=== PATIENT | female | born 1965 | race Caucasian/White ===

== ENCOUNTER → 2022-06-30 12:07 | Outpatient (BNVA) | payer OTHER, SELFPAY | PROVIDERS: PCP Internal Medicine; Visit Provider Psychiatry & Neurology Psychiatry | DX: F32.4 Major depressive disorder, single episode, in partial remission (principal) ==

== ENCOUNTER → 2022-09-28 13:38 | Outpatient (BNVA) | payer OTHER, SELFPAY | PROVIDERS: PCP Internal Medicine; Visit Provider Psychiatry & Neurology Psychiatry | DX: Z13.89 Encounter for screening for other disorder (principal) ==

== ENCOUNTER 2023-03-08 14:34 | Outpatient (AMB) | payer OTHER, SELFPAY ==
--- NOTE | 2023-03-08 13:20 | MHC.OFFVISPS ---
Intake Intake Visit Reasons: Depression Allergies oxycodone [OxyContin] Allergy (Unknown, Verified 05/22/14 00:00) itchiness From OXYCONTIN Allergy (Unknown, Uncoded 02/27/20 16:32) ITCHING HPI- Psychiatric Chief Complaint: Depression HPI Narrative: Pt seen in f/u mood anxious very worried re daughter feeling stressed overwhelmed alone at times daughter may have endometriosis can feel alone at times with her h trying to do counseling knows she needs to take care of herself travels for work at times a [place] has difficulty taking time for herself continues toonly take ssri about 1 wk month for premenstrual sx Past Psychiatric History: The patient has a history of recurrent low level depression premenstrual mood dysphoria and anxiety has been seeing this investigative writer for a number of years Mental Status Exam Mental Status Exam Narrative: Mental Status Exam Narrative: Appearance: Casually dressed Behavior: Cooperative appropriate psychomotor: Within normal limits Speech: Normal volume and prosody Thought proccess logical and goal-directed Thought content: Future oriented gets overwhelmed at times Mood: sadness anxiety Affect: Appropriate to mood full affect SI:denies HI:denies VH/AH:none Delusions: None Insight/judgment: Good insight and judgment Memory/cog: Intact Assessment and Plan Assessment & Plan (1) Major depressive disorder in partial remission: Status: Acute Code(s): F32.4 - Major depressive disorder, single episode, in partial remission (2) Generalized anxiety disorder: Status: Acute Code(s): F41.1 - Generalized anxiety disorder Plan discussed adol tx optioms and help with management of her daughter cont trazadone ssri wellbutrin pt would benefit from IT Counseling and coordination of Care Details-Self Mgmt counseling: extensive issues related to her daughter dealing with chronic trauma related issues and feeling lack of support at times from her h Medication management counseling: Effectiveness Diagnosis and Prognosis Counseling: Adequacy of current interventions Details: I spent [38] minutes reviewing the record, seeing the patient and documenting in the medical record. Counseling provided to the patient/caregiver as outlined below. Addressed patient/caregiver concerns regarding current medication regime including effective adherence. Addressed patient/caregiver concerns regarding diagnosis and prognosis including accuracy of diagnosis, prognosis over time, impact of diagnosis. Addressed patient/caregiver concerns regarding impact of recent stressors. [facility] Medical History (Updated 07/03/22 @ 22:01 by Lebron Vargas MD) Post traumatic stress disorder (PTSD) Major depressive disorder in partial remission Asthma Generalized anxiety disorder Social History: The patient works for [employer] she is and has 1 daughter she is the healthcare proxy mother who has dementia and lives nearby in assisted living daughter has trauma hx Substance History: none Coding Level of Care Code Est Pt Level 3 (01464) Therapy 30m w/E&M (19813) Diagnoses Major depressive disorder in partial remission F32.4 Generalized anxiety disorder F41.1
== END 2023-03-08 14:35 | disposition home or self-care (01) ==
LOC: HO.HOP 14:35
PROVIDERS: PCP Internal Medicine; Visit Provider Psychiatry & Neurology Psychiatry
DX: F32.4 Major depressive disorder, single episode, in partial remission (principal); F41.1 Generalized anxiety disorder
CPT/HCPCS: 90833; 99213

== ENCOUNTER → 2023-03-08 14:34 | Outpatient (BNVA) | payer OTHER, SELFPAY | PROVIDERS: PCP Internal Medicine; Visit Provider Psychiatry & Neurology Psychiatry ==

== ENCOUNTER 2023-09-26 11:11 | Outpatient (AMB) | payer OTHER, SELFPAY ==
--- NOTE | 2023-09-26 11:55 | MHC.OFFVISPS ---
Intake Intake Visit Reasons: depression Allergies oxycodone [OxyContin] Allergy (Unknown, Verified 05/22/14 00:00) itchiness From OXYCONTIN Allergy (Unknown, Uncoded 02/27/20 16:32) ITCHING HPI- Psychiatric Chief Complaint: depression HPI Narrative: Pt seen in f/u mood has been ok severe stress with daughter who is in hospital for endometriosis d having severe pain mother doing ok has ongoing memory difficulty pt herself is managing has periods of anxiety appropriately has been seeing tx Past Psychiatric History: The patient has a history of recurrent low level depression premenstrual mood dysphoria and anxiety has been seeing this selling underwriter for a number of years Mental Status Exam Mental Status Exam Narrative: Mental Status Exam Narrative: Appearance: Casually dressed Behavior: Cooperative appropriate psychomotor: Within normal limits Speech: Normal volume and prosody Thought proccess logical and goal-directed Thought content: Future oriented gets overwhelmed at times worried re her daughter Mood: some sadness anxiety Affect: Appropriate to mood full affect SI:denies HI:denies VH/AH:none Delusions: None Insight/judgment: Good insight and judgment Memory/cog: Intact Assessment and Plan Assessment & Plan (1) Generalized anxiety disorder: Status: Acute Code(s): F41.1 - Generalized anxiety disorder (2) Post traumatic stress disorder (PTSD): Status: Acute Code(s): F43.10 - Post-traumatic stress disorder, unspecified (3) Major depressive disorder in partial remission: Status: Acute Code(s): F32.4 - Major depressive disorder, single episode, in partial remission Plan Severe stress to daughter being hospitalized for endometriosis and pain syndrome with unusual complications and pain management Medications: Refilled escitalopram oxalate 10 mg PO DAILY 30 tabs 2RF bupropion HCl XL 300 mg PO DAILY 90 tabs 1RF zolpidem 5 mg PO BEDTIME PRN 30 tabs 2RF sleep trazodone 200 mg (2 x 100 mg) PO BEDTIME 180 tabs 1RF 3 months Counseling and coordination of Care Details-Self Mgmt counseling: issues rekated to chronic stressors Diagnosis and Prognosis Counseling: Adequacy of current interventions Details: I spent [38] minutes reviewing the record, seeing the patient and documenting in the medical record. Counseling provided to the patient/caregiver as outlined below. Addressed patient/caregiver concerns regarding current medication regime including effective adherence. Addressed patient/caregiver concerns regarding diagnosis and prognosis including accuracy of diagnosis, prognosis over time, impact of diagnosis. Addressed patient/caregiver concerns regarding impact of recent stressors. [facility] Medical History (Updated 07/03/22 @ 22:01 by Lebron Vargas MD) Post traumatic stress disorder (PTSD) Major depressive disorder in partial remission Asthma Generalized anxiety disorder Social History: The patient works for [employer] she is and has 1 daughter she is the healthcare proxy mother who has dementia and lives nearby in assisted living daughter has trauma hx Substance History: none Coding Level of Care Code Est Pt Level 3 (73852) Therapy 30m w/E&M (95989) Diagnoses Generalized anxiety disorder F41.1 Post traumatic stress disorder (PTSD) F43.10 Major depressive disorder in partial remission F32.4
== END 2023-09-26 12:16 | disposition home or self-care (01) ==
LOC: HO.HOP 11:11
PROVIDERS: PCP Student in an Organized Health Care Education/Training Program; Visit Provider Psychiatry & Neurology Psychiatry
DX: F41.1 Generalized anxiety disorder (principal); F43.10 Post-traumatic stress disorder, unspecified; F32.4 Major depressive disorder, single episode, in partial remission
CPT/HCPCS: 90833; 99213

== ENCOUNTER → 2023-09-26 11:11 | Outpatient (BNVA) | payer OTHER, SELFPAY | PROVIDERS: PCP Student in an Organized Health Care Education/Training Program; Visit Provider Psychiatry & Neurology Psychiatry ==

== ENCOUNTER 2024-04-08 10:36 | Outpatient (AMB) | payer OTHER, SELFPAY ==
--- NOTE | 2024-04-08 11:03 | A.OFFPSYCH_ITS ---
Intake Intake Visit Reasons: depression Allergies oxycodone [OxyContin] Allergy (Unknown, Verified 05/22/14 00:00) itchiness From OXYCONTIN Allergy (Unknown, Uncoded 02/27/20 16:32) ITCHING HPI- Psychiatric Chief Complaint: depression HPI Narrative: Pt seen in f/u pt in tx with IT ( telehealth) kaur kilgore medically pt ok has been focused much of her time on her daughter who has been hospitalized . Pt stressed and at times dysphoric but generally maintaining herself and present with her daughter thru multiple medical issues.On wellbutrin escitalopram [facility] at [facility] . Seems to be stable on current regimen Past Psychiatric History: The patient has a history of recurrent low level depression premenstrual mood dysphoria and anxiety has been seeing this senior medical writer for a number of years Mental Status Exam Mental Status Exam Narrative: Mental Status Exam Narrative: Appearance: Casually dressed Behavior: Cooperative appropriate psychomotor: Within normal limits Speech: Normal volume and prosody Thought proccess logical and goal-directed Thought content: Future oriented gets overwhelmed at times worried re her daughter Mood: stressed anxiety Affect: Appropriate to mood constricted SI:denies HI:denies VH/AH:none Delusions: None Insight/judgment: Good insight and judgment Memory/cog: Intact Assessment and Plan Assessment & Plan (1) Generalized anxiety disorder: Status: Acute Code(s): F41.1 - Generalized anxiety disorder (2) Major depressive disorder in partial remission: Status: Acute Code(s): F32.4 - Major depressive disorder, single episode, in partial remission (3) Post traumatic stress disorder (PTSD): Status: Acute Code(s): F43.10 - Post-traumatic stress disorder, unspecified Plan Pt under ongoing stress has been in counseling feels medication has been helpful. Some concern that higher dose Wellbutrin might have been over stimulating causing some increased anxiety dose lowered to 150 mg check labs Medications: Changed From bupropion HCl XL 300 mg PO DAILY 90 tabs 1RF To bupropion HCl XL 150 mg PO QAM 90 tabs 1RF 90 days Orders: Orders Comprehensive Met. Panel 04/08/24 F41.1 - Generalized anxiety disorder, F32.4 - Major depressive disorder, single episode, in partial remission, F43.10 - Post- traumatic stress disorder, unspecified TSH reflex Free T4 04/08/24 F41.1 - Generalized anxiety disorder, F32.4 - Major depressive disorder, single episode, in partial remission, F43.10 - Post- traumatic stress disorder, unspecified Vitamin B12 and Folate 04/08/24 F41.1 - Generalized anxiety disorder, F32.4 - Major depressive disorder, single episode, in partial remission, F43.10 - Post- traumatic stress disorder, unspecified Counseling and coordination of Care Details-Self Mgmt counseling: Extensive discussion regarding issues related to her daughter Medication management counseling: Effectiveness, Side effects and Dosing range Diagnosis and Prognosis Counseling: Impact of diagnosis on life functions and Adequacy of current interventions Details: I spent [38] minutes reviewing the record, seeing the patient and documenting in the medical record. Counseling provided to the patient/caregiver as outlined below. Addressed patient/caregiver concerns regarding current medication regime including effective adherence. Addressed patient/caregiver concerns regarding diagnosis and prognosis including accuracy of diagnosis, prognosis over time, impact of diagnosis. Addressed patient/caregiver concerns regarding impact of recent stressors. [facility] Medical History (Updated 07/03/22 @ 22:01 by Lebron Vargas MD) Post traumatic stress disorder (PTSD) Major depressive disorder in partial remission Asthma Generalized anxiety disorder Social History: The patient works for [employer] she is and has 1 daughter she is the healthcare proxy mother who has dementia and lives nearby in assisted living daughter has trauma hx Substance History: none Coding Level of Care Code Est Pt Level 3 (41381) Therapy 30m w/E&M (23346) Diagnoses Generalized anxiety disorder F41.1 Major depressive disorder in partial remission F32.4 Post traumatic stress disorder (PTSD) F43.10
== END 2024-04-08 11:20 | disposition home or self-care (01) ==
LOC: HO.HOP 10:36
PROVIDERS: PCP Student in an Organized Health Care Education/Training Program; Visit Provider Psychiatry & Neurology Psychiatry
DX: F41.1 Generalized anxiety disorder (principal); F32.4 Major depressive disorder, single episode, in partial remission; F43.10 Post-traumatic stress disorder, unspecified
CPT/HCPCS: 90833; 99213

== ENCOUNTER → 2024-04-08 10:36 | Outpatient (BNVA) | payer OTHER, SELFPAY | PROVIDERS: PCP Student in an Organized Health Care Education/Training Program; Visit Provider Psychiatry & Neurology Psychiatry ==

== ENCOUNTER 2024-07-10 14:56 | Outpatient (AMB) | payer OTHER, SELFPAY ==
--- NOTE | 2024-07-10 15:38 | A.OFFPSYCH_ITS ---
Intake Intake Visit Reasons: depression Allergies oxycodone [OxyContin] Allergy (Unknown, Verified 05/22/14 00:00) itchiness From OXYCONTIN Allergy (Unknown, Uncoded 02/27/20 16:32) ITCHING Medication List - Last Reconciled 07/10/24 by Lebron Vargas MD bupropion HCl XL (Wellbutrin XL) 300 mg PO QAM clonidine HCl 0.1 mg PO BEDTIME PRN escitalopram oxalate 10 mg PO DAILY estradiol 1 patch topical 2XW lansoprazole 30 mg PO BID lorazepam 0.5 - 1 mg (0.5 - 1 x 1 mg) PO DAILY PRN 30 days progesterone micronized 100 mg PO DAILY trazodone 200 mg (2 x 100 mg) PO BEDTIME 3 months zolpidem 5 mg PO BEDTIME PRN HPI- Psychiatric Chief Complaint: depression HPI Narrative: Patient seen in psychiatric follow-up has significant ongoing depressive and anxiety symptoms related to multiple chronic stressors. Her daughter who is 16 who is disabled in a wheelchair living home with multiple medical conditions morbid obesity has recently been diagnosed with thyroid cancer. She also has significant psychiatric issues including PTSD and depression. Patient's mother was recently sent to rehab after RSV. Patient has some difficulty at times with concentration attention intrusive anxiety and dysphoria. She does try to take care of herself no thoughts of self-harm. We had talked about lowering Wellbutrin to 150 mg but she had kept it at 300 mg and has chronically intermittently augmented with escitalopram with generally good effect she uses trazodone for sleep Ambien 5 mg at HS clonidine 0.1 as needed. Has chronic back pain and reflux no other significant medical issues. Labs were ordered last appointment patient does relate a history of episodic memory difficulty at times she does work full-time and is also taking care of her daughter essentially full-time Past Psychiatric History: The patient has a history of recurrent low level depression premenstrual mood dysphoria and anxiety has been seeing this policy writer sales for a number of years Mental Status Exam Mental Status Exam Narrative: Mental Status Exam Narrative: Appearance: Casually dressed Behavior: Cooperative appropriate psychomotor: Within normal limits Speech: Normal volume and prosody Thought proccess logical and goal-directed Thought content: Future oriented gets overwhelmed at times worried re her daughter whether she is being good enough at taking care some concerns regarding episodic insomnia Mood: stressed anxiety Affect: Appropriate to mood constricted SI:denies HI:denies VH/AH:none Delusions: None Insight/judgment: Good insight and judgment Memory/cog: Intact Assessment and Plan Assessment & Plan (1) Generalized anxiety disorder: Status: Acute Code(s): F41.1 - Generalized anxiety disorder (2) Post traumatic stress disorder (PTSD): Status: Acute Code(s): F43.10 - Post-traumatic stress disorder, unspecified (3) Dysthymia: Status: Acute Code(s): F34.1 - Dysthymic disorder Plan Discussed issues related to managing chronic stress and ways to ameliorate. Ongoing use of escitalopram would probably be more helpful than Wellbutrin 300 mg alone. Suggest daily relaxation breathing exercise check Chem profile B12 folate TSH. She is dealing with her daughter's new diagnosis of a thyroid nodule which appears to be cancerous she and her do get along Medications: New bupropion HCl XL (Wellbutrin XL) 300 mg PO QAM 90 tabs 1RF Refilled clonidine HCl 0.1 mg PO BEDTIME PRN 90 tabs 0RF for insomnia trazodone 200 mg (2 x 100 mg) PO BEDTIME 3 months 180 tabs 1RF zolpidem 5 mg PO BEDTIME PRN 30 tabs 2RF sleep Discontinued bupropion HCl XL Discontinued Reason: Doctor's Order 150 mg PO QAM 90 days 90 tabs 1RF Counseling and coordination of Care Medication management counseling: Effectiveness, Side effects and Dosing range Diagnosis and Prognosis Counseling: Impact of diagnosis on life functions and Adequacy of current interventions Details: I spent [40] minutes reviewing the record, seeing the patient and documenting in the medical record. Counseling provided to the patient/caregiver as outlined below. Addressed patient/caregiver concerns regarding current medication regime including effective adherence. Addressed patient/caregiver concerns regarding diagnosis and prognosis including accuracy of diagnosis, prognosis over time, impact of diagnosis. Addressed patient/caregiver concerns regarding impact of recent stressors. [facility] Medical History (Updated 07/10/24 @ 16:51 by Lebron Vargas MD) Post traumatic stress disorder (PTSD) Major depressive disorder in partial remission Asthma Generalized anxiety disorder Social History: The patient works for [email or web address] she is and has 1 daughter she is the healthcare proxy mother who has dementia and lives nearby in assisted living daughter has trauma hx Substance History: none Coding Level of Care Code Est Pt Level 3 (44780) Therapy 30m w/E&M (21140) Diagnoses Generalized anxiety disorder F41.1 Post traumatic stress disorder (PTSD) F43.10 Dysthymia F34.1
--- OUTSIDE RECORDS SUMMARY | 2024-07-10 17:05 | XMS_ITS | Data Portability ---
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 Patient consented to video & audio visit Patient was located in the [facility]. Provider was located in the office. No other persons participated in the telemedicine visit except for the patient unless otherwise indicated here. {{}} Total time of visit was 7 minutes. pmadden Not available 11/15/2022 14:00:37 Plan of Treatment Reminders Order Date Submit Date Provider Last Modified By Organization Details Last Modified Time Details Appointments None recorded. Lab D-dimer, quant, plasma 2022 023 [facility], [address], [address], [facility] [place], [address], 3 15:35:11 uric acid, serum or plasma 2022 023 [facility], [address], [address], [place], [address], 3 17:16:35 unlisted lab - lyme disease antibody w/reflex west blot 2022 023 [facility], [address], [address], [place], [address], 3 11:12:25 CBC w/ auto diff 2022 023 [facility], [address], [address], [place], [address], 3 17:37:51 TSH, serum or plasma 2022 023 [facility], [address], [address], [place], [address], 3 18:24:44 CMP, serum or plasma 2022 023 [facility], [address], [address], [place], [address], 3 18:23:26 hepatitis C virus Ab, serum 2022 023 [facility], [address], [address], [place], [address], 3 08:10:35 HbA1c (hemoglob in A1c), blood 2022 024 [facility], [address], [address], [place], [address], 4 03:03:24 glucose, QN [mass/vol ume], serum or plasma 2022 024 [facility], [address], [address], [place], [address], 4 03:03:24 cholester ol, total, serum 2022 024 [facility], [address], [address], [place], [address], 4 03:03:24 HDL cholester ol, serum 2022 024 [facility], [address], [address], [place], [address], 4 03:03:24 LDL, serum 2022 024 [facility], [address], [address], [place], [address], 4 03:03:24 triglycer ides, serum 2022 024 [facility], [address], [address], [place], [address], 4 03:03:25 magnesium , serum or plasma 2022 024 [facility], [address], [address], [place], [address], 4 03:03:24 Referral None recorded. Procedures None recorded. Surgeries None recorded. Imaging XR, ankle, 3 or more view - for eval of right lateral ankle pain 2022 023 [facility] Not available 3 17:21:52 electroca rdiogram 2022 023 alexander In-Office Order, Internal Use Only DO Not Attach Compendium DO Not Attach Compendium, Do Not Delete/merge, [id number] 3 12:11:58 Medication Orders clobetaso l 0.05 % topical ointment 2022 023 [email or web address] [id number], [address], [place], [address], 3 10:05:55 prednison e 10 mg tablet 2022 023 [id number], [address] [facility] [facility], [place], [address], 3 11:40:18 hydroxyzi ne HCl 10 mg tablet 2022 023 [id number], [address] [place], [address], 3 11:39:45 prednison e 10 mg tablet 2022 023 [id number], [address] [place], [address], 3 11:40:18 ibuprofen 600 mg tablet 2022 023 [id number], [address] [place], [address], 3 12:14:07 carisopro dol 350 mg tablet 2022 023 [id number], [address] [place], [address], 13:36:00 Patient TargetsNo targets recorded. Patient Instructions Encounter Date Encounter Id Patient Instructions Last Modified By Organization Details Last Modified Time 11/08/2022 [id number] poison len, oak, and sumac: care instructions [email or web address] Not available 11/08/2022 10:05:30 11/15/2022 [id number] Follow up if no improvement or if symptoms worsen. pmadden Not available 11/15/2022 14:03:17 03/24/2023 [id number] well visit, women 50 to 65: care instructions Not available 03/24/2023 13:35:57 medical record request* [email or web address] Not available 03/27/2023 11:22:54 starting a weight loss plan: care instructions Not available 03/24/2023 13:41:01 04/22/2023 [id number] prediabetes: care instructions [email or web address] Not available 04/22/2023 10:56:46 triglyceride diet awychowski Not available 04/22/2023 10:56:46 palpitations: care instructions awychowski Not available 04/22/2023 12:11:58 Reason for Referral None Reported. Results Created Date Observation Date Name Description Value Unit Range Abnormal Flag Note LastModifiedBy Organization Detail LastModifiedTime 01/01/20 23 12/31/2022 D-DIM ER D-dimer 0.33 mg/L_ feu (<1.01 ) The manuf actur er recom mends that a d-Dim er value of <0.5 FEU mg/L can be used in conju nctio n with clini isi crite mikaela to help exclu de Deep Vein Throm bosis (DVT) and/o r Pulmo nary Embol ism (PE) in patie nts with a low prete st proba bilit y. Not Available [facility] [address], [place], [address], 12/31/2022 15:35:11 01/01/20 23 12/31/2022 URIC ACID uric acid 5.7 mg/dL (1.6-7 .6) Not Available [facility] [address], [place], [address], 12/31/2022 17:16:35 01/01/20 23 01/03/2023 LYME AB W/REF FARZANEH lyme Ab w/reflex (neg) NEGAT MARITZA NO ANTIB NENITA TO BORRE LLIA BURGD ORFER I DETEC SVETLANA. PATIE NTS IN EARLY STAGE S OF INFEC TION OR WHO WERE GIVEN EARLY ANTIB IOTIC TREAT MENT MAY NOT PRODU CE DETEC TABLE LEVEL S OF ANTIB NENITA. THESE PATIE NTS WOULD BENEF IT FROM REPEA T TESTI NG IN 2 TO 4 WEEKS . Testi ng perfo rmed by the Bio-R ad BioPl ex 2200 multi plex flow immun oassa y syste m Not Available [facility] [address], [place], [address], 01/03/2023 11:12:25 03/29/20 23 03/29/2023 COMPL ETE CBC WITH DIFF WBC 6.0 K/mm3 (4.0-1 1.0) Not Available [facility] [address], [place], [address], 03/29/2023 17:37:51 03/29/2003/29/2023 COMPL ETE CBC WITH DIFF RBC 4.84 M/mm3 (4.20- 5.40) Not Available [facility] [address] [place], [address], 03/29/2023 17:37:51 03/29/20 23 03/29/2023 COMPL ETE CBC WITH DIFF HGB 13.8 gm/dL (11.7- 15.5) Not Available [facility] [address] [place], [address], 03/29/2023 17:37:51 03/29/2003/29/2023 COMPL ETE CBC WITH DIFF HCT 41.3 % (35.7- 45.8) Not Available [facility] [address] [place], [address], 03/29/2023 17:37:51 03/29/2003/29/2023 COMPL ETE CBC WITH DIFF MCV 85.3 fL (80.0- 100.0) Not Available [facility] [address] [place], [address], 03/29/2023 17:37:51 03/29/20 23 03/29/2023 COMPL ETE CBC WITH DIFF MCH 28.5 pg (27.0- 34.0) Not Available [facility] [address] [place], [address], 03/29/2023 17:37:51 03/29/20 23 03/29/2023 COMPL ETE CBC WITH DIFF MCHC 33.4 g/dL (33.0- 37.0) Not Available [facility] [address] [place], [address], 03/29/2023 17:37:51 03/29/20 23 03/29/2023 COMPL ETE CBC WITH DIFF plt 173 K/mm3 (150-4 60) Not Available [facility] [address] [place], [address], 03/29/2023 17:37:51 03/29/20 23 03/29/2023 COMPL ETE CBC WITH DIFF RDW-SD 38.5 fL (<47.0 ) Not Available [facility] [address] [place], [address], 03/29/2023 17:37:51 03/29/20 23 03/29/2023 COMPL ETE CBC WITH DIFF MPV 10.3 fL (9.4-1 2.4) Not Available [facility] [address] [place], [address], 03/29/2023 17:37:51 03/29/2003/29/2023 COMPL ETE CBC WITH DIFF automated NRBC 0.0 #/100 _WBC' s Not Available [facility] [address] [place], [address], 03/29/2023 17:37:51 03/29/2003/29/2023 COMPL ETE CBC WITH DIFF abs. NRBC 0.0 K/mm3 Not Available [facility] [address] [place], [address], 03/29/2023 17:37:51 03/29/2003/29/2023 COMPL ETE CBC WITH DIFF neut # 3.9 K/mm3 (1.3-7 .0) Not Available [facility] [address] [place], [address], 03/29/2023 17:37:51 03/29/20 23 03/29/2023 COMPL ETE CBC WITH DIFF lymph # 1.3 K/mm3 (0.8-3 .1) Not Available [facility] [address] [place], [address], 03/29/2023 17:37:51 03/29/20 23 03/29/2023 COMPL ETE CBC WITH DIFF mono# 0.5 K/mm3 (0.4-0 .9) Not Available [facility] [address] [place], [address], 03/29/2023 17:37:51 03/29/20 23 03/29/2023 COMPL ETE CBC WITH DIFF eo # 0.2 K/mm3 (0.0-0 .4) Not Available [facility] [address] [place], [address], 03/29/2023 17:37:51 03/29/20 23 03/29/2023 COMPL ETE CBC WITH DIFF baso # 0.0 K/mm3 (0.0-0 .1) Not Available [facility] [address] [place], [address], 03/29/2023 17:37:51 03/29/20 23 03/29/2023 COMPL ETE CBC WITH DIFF abs. imm gran 0.0 K/mm3 Not Available [facility] [address] [place], [address], 03/29/2023 17:37:51 03/29/20 23 03/29/2023 COMPL ETE CBC WITH DIFF neut 65.9 % (44-76 ) Not Available [facility] [address] [place], [address], 03/29/2023 17:37:51 03/29/20 23 03/29/2023 COMPL ETE CBC WITH DIFF lymph 21.0 % (15-43 ) Not Available [facility] [address] [place], [address], 03/29/2023 17:37:51 03/29/20 23 03/29/2023 COMPL ETE CBC WITH DIFF monocyte 8.4 % (4.5-1 0.5) Not Available [facility] [address] [place], [address], 03/29/2023 17:37:51 03/29/20 23 03/29/2023 COMPL ETE CBC WITH DIFF eo 3.9 % (0-6) Not Available [facility] [address] [place], [address], 03/29/2023 17:37:51 03/29/20 23 03/29/2023 COMPL ETE CBC WITH DIFF baso 0.5 % (0-2) Not Available [facility] [address] [place], [address], 03/29/2023 17:37:51 03/29/20 23 03/29/2023 COMPL ETE CBC WITH DIFF imm gran 0.3 % Not Available [facility] [address] [place], [address], 03/29/2023 17:37:51 03/29/20 23 03/29/2023 COMPR EHENS MARITZA METAB OLIC PANL glucose 118 mg/dL (70-99 ) high Fasti ng Not Available [facility] [address] [place], [address], 03/29/2023 18:23:25 03/29/20 23 03/29/2023 COMPR EHENS MARITZA METAB OLIC PANL BUN 11 mg/dL (6-20) Not Available [facility] [address] [place], [address], 03/29/2023 18:23:25 03/29/20 23 03/29/2023 COMPR EHENS MARITZA METAB OLIC PANL creatinine 1.0 mg/dL (0.5-1 .0) Not Available [facility] [address] [place], [address], 03/29/2023 18:23:25 03/29/20 23 03/29/2023 COMPR EHENS MARITZA METAB OLIC PANL sodium 137 mmol/ L (133-1 45) Not Available [facility] [address] [place], [address], 03/29/2023 18:23:25 03/29/20 23 03/29/2023 COMPR EHENS MARITZA METAB OLIC PANL potassium 4.7 mmol/ L (3.6-5 .2) Not Available [facility] [address] [place], [address], 03/29/2023 18:23:25 03/29/20 23 03/29/2023 COMPR EHENS MARITZA METAB OLIC PANL chloride 102 mmol/ L (98-10 7) Not Available [facility] [address] [place] [address], [address], 03/29/2023 18:23:25 03/29/20 23 03/29/2023 COMPR EHENS MARITZA METAB OLIC PANL bicarbonate 26 mmol/ L (22-29 ) Not Available [facility] [address] [place] [place], [address], 03/29/2023 18:23:25 03/29/2003/29/2023 COMPR EHENS MARITZA METAB OLIC PANL anion gap 9 (4-17) Not Available [facility] [address] [place], [address], 03/29/2023 18:23:25 03/29/2003/29/2023 COMPR EHENS MARITZA METAB OLIC PANL albumin 4.5 gm/dL (3.4-4 .8) Not Available [facility] [address] [place], [address], 03/29/2023 18:23:25 03/29/20 23 03/29/2023 COMPR EHENS MARITZA METAB OLIC PANL calcium 9.2 mg/dL (8.6-1 0.5) Not Available [facility] [address] [place], [address], 03/29/2023 18:23:25 03/29/2003/29/2023 COMPR EHENS MARITZA METAB OLIC PANL bilirubin,to gideon 0.4 mg/dL (0-1.2 ) Not Available [facility] [address] [place], [address], 03/29/2023 18:23:25 03/29/20 23 03/29/2023 COMPR EHENS MARITZA METAB OLIC PANL total protein 6.5 gm/dL (6.2-8 .2) Not Available [facility] [address] [place], [address], 03/29/2023 18:23:25 03/29/20 23 03/29/2023 COMPR EHENS MARITZA METAB OLIC PANL Ag ratio 2.3 Not Available [facility] [address] [place], [address], 03/29/2023 18:23:25 03/29/20 23 03/29/2023 COMPR EHENS MARITZA METAB OLIC PANL AST 18 U/L (0-32) Not Available [facility] [address] [place], [address], 03/29/2023 18:23:25 03/29/20 23 03/29/2023 COMPR EHENS MARITZA METAB OLIC PANL alk phos 57 U/L (35-10 4) Not Available [facility] [address] [place], [address], 03/29/2023 18:23:25 03/29/20 23 03/29/2023 COMPR EHENS MARITZA METAB OLIC PANL ALT 24 U/L (0-33) Not Available [facility] [address] [place], [address], 03/29/2023 18:23:25 03/29/20 23 03/29/2023 COMPR EHENS MARITZA METAB OLIC PANL estimated GFR creatinine 67 mL/mi n/1.7 3_M2 Creat inine based estim ated glome rular filtr ation (eGFR ) in adult s is calcu lated using the Natio nal Kidne y Found ation recom candi d 2020 CKD-E PI equat ion. Estim ates GFR from serum creat inine , age and sex. Not Available [facility] [address] [place], [address], 03/29/2023 18:23:25 03/29/20 23 03/29/2023 TSH WITH REFLE X TO FT4 TSH 0.89 uIU/m L (0.4-4 .2) Not Available [facility] [address] [place], [address], 03/29/2023 18:24:44 03/29/2003/30/2023 LIPID PANEL cholesterol, total 167 mg/dL (<200) Not Available [facility] [address] [place], [address], 03/30/2023 08:58:04 03/29/2003/30/2023 LIPID PANEL triglyceride 278 mg/dL (<150) high Fasti ng Not Available [facility] [address] [place], [address], 03/30/2023 08:58:04 03/29/2003/30/2023 LIPID PANEL HDL chol 28 mg/dL (>39) low Not Available [facility] [address] [place], [address], 03/30/2023 08:58:04 03/29/2003/30/2023 LIPID PANEL LDL cholesterol, calculated 83 mg/dL (0-130 ) Not Available [facility] [address] [place], [address], 03/30/2023 08:58:04 03/29/2003/30/2023 LIPID PANEL non HDL cholesterol (calc) 139 mg/dL (<160) Not Available [facility] [address] [place], [address], 03/30/2023 08:58:04 03/29/2003/30/2023 HEMOG LOBIN A1C hemoglobin A1C 5.6 % (4.0-5 .6) MONIT ORING : In known diabe tic patie nts, hemog lobin A1c targe arpan hamm d be discu ssed with healt h care provi kirit. DIAGN OSTIC USE: The Ameri can Diabe damaso Assoc iatio n (ADA) and the World Healt h Organ izati on (WHO) recom mend the use of HbA1c to diagn ose diabe damaso using a thres hold of 6.5%. Patie nts who have an HbA1c betwe en 5.7% and 6.4% are consi dered at incre ased risk for devel oping diabe damaso in the futur e. RIKITI ON: False ly low HbA1c resul ts may be obser yonatan in patie nts with hemol ytic anemi a, homoz ygous forms of abnor mal hemog lobin (e.g. SS, CC, SC), pregn reena, recen t blood loss or hemog lobin F great er than 7%. Fruct osami ne may be used as an alter maxwell test in these cases . REFER ENCE: ADA: Stand ards of Medic al Care in Diabe damaso 2019, The Journ al of Clini isi and Appli ed Resea rch and Educa tion Volum e 43, Suppl ement 1 Not Available [facility] [address], [place], [address], 03/30/2023 10:50:51 03/29/20 23 03/31/2023 ANTI- HEPAT ITIS C anti-hepatit is C (neg) Non React maritza Refer ence range : Non React maritza (NOTE ) HCV antib nenita alone does not diffe renti ate betwe en previ ously resol yonatan infec tion and activ e infec tion. Equiv ocal and React maritza HCV antib nenita resul ts shoul d be follo wed up with an HCV RNA test to suppo rt the diagn osis of activ e HCV infec tion. Test perfo rmed by [facility], [address] [place] [address] Not Available [facility] [address], [place], [address], 03/31/2023 08:10:35 01/05/20 23 01/04/2023 XR, ankle , 3 or more view Ankle Min 3 Views Right Reason : swelli ng, effusi on, for eval of right latera l ankle pain COMPAR GUTIERREZ: Right ankle radiog raphs from 017 FINDIN GS: No eviden ce of acute or healin g fractu re or bone lesion . Intact ankle mortis e and talar dome. No arthri tic change s. Normal soft tissue s. IMPRES TERESO: No fractu re. WSN: [id number] Orderi ng Physic oma: Torsten Harris Dictat ed By: River Washington MD Dictat ed Date/T luis angel: 5:18 pm Review ed By: Abigail arriaga MD, River Restrepo Signed By: River Washington MD Signed Date/T luis angel: 5:18 pm Transc ribed By: KAYLA Transc ribed Date/T luis angel: 5:16 pm Patien t Class: Outpat ient [facility] (Outpt Imaging) [address] [facility], [place], [address], 01/05/2023 16:44:36 04/22/20 23 04/22/2023 elect rocar diogr am No observ ation record ed. awfab In-Office Order Internal Use Only DO Not Attach Compendium DO Not Attach Compendium, Do Not Delete/merge, [id number] 04/22/2023 12:17:12 04/22/20 elect rocar diogr am No observ ation record ed. LAMAR In-Office Order Internal Use Only DO Not Attach Compendium DO Not Attach Compendium, Do Not Delete/merge, [id number] 04/27/2023 11:56:49 Result Notes None recorded. Problems Name Problem SNOMED Code Status Onset Date Resolution Date Notes Provider Name and Address Organization Details Recorded Time Abdomina l pain [id number] Completed 201112/31/2013 IMPRESSI ON: PAIN, BLOATING AND GAS X PASTA 1.5 WEEKS. LOCALIZE D LUQ BUT ALSO EPIGASTR IC D/C AND RLQ D/C ON EXAM. HX OF HIATAL HERNIA, GERD BUT NO OTHER CHRONIC GI SXS. NEEDS LAB, US. WILL CONTACT WITH RESULTS WHEN AVAIL, MAY ULTIMATE LY NEED GI REFERRAL FOR POSSIBLE SCOPE. IN MEANTIME FLUIDS, BLAND FOODS, CONTINUE WITH PREVACID .; RECORDED 01/18/20 12 10:54AM BY MONICA IVEY ON/ADDEN LEMUEL Castro, [facility] [address] [facility] [address], [place], [address] , [facility] 10:49:28 Generali zed abdomina l pain [id number] Completed 201112/31/2013 RECORDED 01/23/20 12 11:01AM BY SARA ROWLAND MA, ANNOTATI ON/ADDEN DUM Alfred Castro, [facility] [address], [place], [address] , [facility] 10:49:28 Acute maxillar y sinusiti s [id number] Completed 200612/31/2013 RESOLVED DATE: 01/14/20 07; RECORDED 01/14/20 07 10:19AM BY PEPE BROWN MD, ANNOTATI ON/ADDEN DUM Alfred Castro, [facility] [address] [facility] [address], [place], [address] , [facility] 10:49:27 Acute pharyngi tis [id number] Completed 200812/31/2013 IMPRESSI ON: ULCERATI ONS ON OROPHARY NX, LOOK VIRAL RELATED, SALT WATER GARGLES; RECORDED 08/19/19 09 2:22PM BY YOLETTE LORD, ANNOTATI ON/ADDEN DUM Alfred Castro, [facility] [address] [facility] [address], [place], [address] , [facility] 10:49:27 Acute sinusiti s [id number] Completed 201112/31/2013 RECORDED 01/18/20 12 10:53AM BY ANAY ELKINS, MONICA ON/ADD LEMUEL foy [facility] 7 15:50:52 Acute sinusiti s [id number] Completed 201212/09/2016 IMPRESSI ON: PT CALLED SXS WORSE FROM LAST WEEK; RECORDED 04/25/20 13 3:05PM BY ANAY ELKINS, OFFICE VISIT Eri foy [facility] 7 15:50:52 Allergic rhinitis [id number] Completed 201112/31/2013 IMPRESSI ON: WILL ADD DUE TO POORLY CONTROLL ED ALLERGIE S; RECORDED 01/18/20 12 10:54AM BY ANAY ELKINS, MONICA ON/ADDEN DUM Alfred Castro, [facility] [address] [facility] [address], [place], [address] , [facility] 10:49:27 Patient status finding [id number] Completed 201212/31/2013 RECORDED 10/03/19 13 11:17AM BY TITO RÍOS MA, VENTURAATI ON/ADDEN DUM Eri foy, [facility] 7 15:50:49 Screenin g for malignan t neoplasm of breast Completed 201112/31/2013 RECORDED 01/23/20 12 11:01AM BY SARA ROWLAND MA, MONICA ON/ADDEN DUM Alfred Castro, [facility] [address] [facility] [address], [place], [address] , [facility] 10:49:28 Screenin g for malignan t neoplasm of cervix Completed 201212/09/2016 RECORDED 04/25/20 13 3:04PM BY ANAY ELKINS, OFFICE VISIT Eri foy, [facility] 7 15:50:54 Conjunct ivitis [id number] Completed 201112/31/2013 RECORDED 01/18/20 12 10:53AM BY MONICA IVEY ON/ADDEN DUM Eri foy, [facility] 7 15:51:45 Cough [id number] Completed 201212/09/2016 IMPRESSI ON: HAS REACTIVE AIRWAYS THAT HAVE RESPONDE D IN PAST TO ADVAIR. WILL UP TO 500. SHE THINKS POSTNASA L DRIP PLAYS A BIG PART TOO. ADD SUDAFED. CONTINUE FLONASE AND NETI-POT ; RECORDED 04/25/20 13 3:05PM BY ANAY ELKINS, OFFICE VISIT Eri foy [facility] 7 15:51:16 Degenera tion of lumbar interver tebral disc [id number] Active 2012 RECORDED 04/25/20 13 3:04PM BY ANAY ELKINS, OFFICE VISIT Not Available [facility] 2 13:23:03 Depressi ve disorder [id number] Completed 201210/23/2018 RECORDED 04/25/20 13 3:05PM BY ANAY ELKINS, OFFICE VISIT Eri foy [facility] 9 14:08:53 Gastroes ophageal reflux disease [id number] Active 2012 IMPRESSI ON: STABLE ON MEDS, KEEP MEALS LIGHT; RECORDED 04/25/20 13 3:04PM BY ANAY ELKINS, OFFICE VISIT Not Available [facility] 2 13:23:03 Malaise and fatigue [id number] Completed 201212/09/2016 IMPRESSI ON: CHECK LABS HX OF GESTATIO NAL DM; RECORDED 04/25/20 13 3:37PM BY ERI Santillan MD, OFFICE VISIT Eri foy [facility] 7 15:51:01 Female infertil ity [id number] Completed 201112/31/2013 RECORDED 01/18/20 12 10:53AM BY ANAY ELKINS, ANNOTATI ON/ADDEN DUM Alfred Castro [facility] [address] [facility] [address], [place], [address] , [facility] 10:49:27 Influenz a vaccine needed [id number] Completed 201212/31/2013 RECORDED 04/25/20 13 3:14PM BY ANAY ELKINS, OFFICE VISIT Alfred Castro [facility] [address] [facility] [address], [place], [address] , [facility] 10:49:28 Adult health examinat ion Completed 201212/09/2016 IMPRESSI ON: PT IS OVERDUE FOR PAPA ND MAMMOGRA M, I URGED HER TO GET HER MAMMOGRA M EVERY YEAR, SHE WILL ARRANGE, WILL GET COLONOSC OY AT AGE 52, IS ADOPTED, NO SYMPOTMS .; RECORDED 04/25/20 13 3:36PM BY ERI Santillan MD, OFFICE VISIT Eri foy, [facility] 7 15:50:58 Adult health examinat ion Completed 201112/31/2013 IMPRESSI ON: PAP AND MAMMO UTD, WILL INCREASE EXERCISE ; RECORDED 01/23/20 12 11:01AM BY SARA ROWLAND MA, ANNOTATI ON/ADDEN DUM Eri foy, [facility] 7 15:50:58 General examinat ion of patient Completed 200812/31/2013 IMPRESSI ON: PAP UTD, HAS NOT HAD MAMMO, 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 CHECK LAST TETANUS AT FOLLOW UP; RECORDED 08/19/19 09 2:22PM BY MONICA BURNS ON/HARDIK Castro, [facility] [address] [address], [place], [id number] , [facility] [place] 6 10:49:28 Blood in urine [id number] Completed 200812/31/2013 RECORDED 08/19/19 09 2:22PM BY MONICA BURNS ON/HARDIK Castro, [facility] [address] [address], [place], [address] , [facility] [place] 10:49:27 Pure hypercho lesterol emia [id number] Completed 201210/23/2018 IMPRESSI ON: CEHCK NONFASTI NG TO GET BASELINE ; RECORDED 04/25/20 13 3:05PM BY ANAY ELKINS, OFFICE VISIT Eri marshenznusrat foy [facility] 9 14:09:00 Internal hemorrho ids [id number] Completed 201212/09/2016 RECORDED 04/25/20 13 3:05PM BY ANAY ELKINS, OFFICE VISIT Eri marshenznusrat foy [facility] 7 15:51:42 Laborato ry procedur e performe d [id number] Completed 201212/31/2013 RECORDED 08/23/19 13 9:42AM BY DEMARCO GARCIA MA, VENTURAATI ON/HARDIK Castro, [facility] [address] [facility] [address], [place], [address] , [facility] 6 10:49:28 Leukopen ia [id number] Completed 201210/23/2018 RECORDED 04/25/20 13 3:05PM BY ANAY ELKINS, OFFICE VISIT Eri marshenznusrat foy [facility] 9 14:08:57 Low back pain [id number] Completed 201212/09/2016 IMPRESSI ON: TREATED BY PAIN MANAGEME NT, ON PRN PAIN MEDS, ENCOURAG ED CORE AND EXERCISE WORK; RECORDED 04/25/20 13 3:37PM BY ERI Santillan MD, OFFICE VISIT Eri foy [facility] 7 15:51:05 Lumbar sprain [id number] Completed 201112/31/2013 RECORDED 01/18/20 12 10:53AM BY ANAY ELKINS, MONICA ON/HARDIK Castro, PASUP [address] [facility] [address], [place], [address] , [facility] 10:49:28 Malaise and fatigue [id number] Completed 201112/31/2013 IMPRESSI ON: MOOD STABLE ON MEDS; RECORDED 01/23/20 12 11:01AM BY SARA ROWLAND MA, ANNOTATI ON/ADDEN DUM Eri foy [facility] 7 15:51:01 Patient status finding [id number] Completed 201212/09/2016 RECORDED 04/25/20 13 3:14PM BY ANAY ELKINS, OFFICE VISIT Eri foy [facility] 7 15:50:49 Infectiv e otitis externa [id number] Completed 200812/31/2013 RECORDED 08/19/19 09 2:24PM BY TITO RÍOS MA, ANNOTATI ON/ADDEN DUM Alfred Castro, [facility] [address] [address], [facility] [place], [address] , [facility] [facility] 10:49:27 Contact dermatit is due to plants, except food Completed 201212/09/2016 RECORDED 04/25/20 13 3:05PM BY ANAY ELKINS, OFFICE VISIT Eri foy [facility] 7 15:51:28 Eruption [id number] Completed 200812/31/2013 IMPRESSI ON: PERIANAL , TRUIAL OF STEROID, THEN ANTIFUNG AL AND THEN TREAT HEMORRHO IDS,; RECORDED 11/14/19 09 1:44PM BY TITO RÍOS MA, ANNOTATI ON/ADDEN DUM Eri foy, [facility] 7 15:51:03 Knee pain Completed 201212/31/2013 IMPRESSI ON: S/P INJURY 9 DAYS AGO, NO INSTABIL ITY ON EXAM, HAS UPCOMING NEOS APPT 09/04([place]las [place]).; RECORDED 10/03/19 13 11:17AM BY TITO RÍOS MA, ANNOTATI ON/ADDEN D[facility] 15:[facility] Chronic sinusiti s [id number] Completed 201112/31/2013 RECORDED 01/23/20 12 11:01AM BY SARA ROWLAND MA, ANNOTATI ON/ADDEN DUM Alfred Castro, [facility] [address] [address], [place], [address] , [facility] [place] [facility] 10:49:27 Disorder of skin and/or subcutan eous tissue [id number] Completed 201112/31/2013 IMPRESSI ON: 2 SMALL SKIN TAGS OVER EYES, SKIN GETS DRY AND THEY CAN GET IRRITATE D.REFER TO PLASTIC SURGERY FOR EVAL ABOUT REMOVAL; RECORDED 01/23/20 12 11:01AM BY SARA ROWLAND MA, ANNOTATI ON/ADD LEMUEL Castro, [facility] [address] [address], [place], [address] , [facility] [facility] 10:49:28 Thromboc ytopenic disorder [id number] Completed 201112/31/2013 RECORDED 01/23/20 12 11:01AM BY SARA ROWLAND MA, ANNOTATI ON/ADD LEMUEL Castro, [facility] [address] [address], [place], [address] , [facility] [place] 10:49:27 Acute upper respirat ory infectio n [id number] Completed 201212/09/2016 IMPRESSI ON: VIRAL; RECORDED 04/25/20 13 3:04PM BY ANAY ELKINS, [facility] 15:[facility]23 Vaginiti s and vulvovag initis Completed 201112/31/2013 IMPRESSI ON: GETS YEAST INFECTIO N ON ANTIBIOT ICS; RECORDED 01/18/20 12 10:54AM BY MONICA IVEY ON/ADDEN DUM Alfred Castro, [facility] [address], [place], [address] , [facility] [place] [facility] 10:49:27 Candidal vulvovag initis [id number] Completed 201212/09/2016 RECORDED 05/29/20 13 4:14PM BY ANAY ELKINS, NURSE TRIAGE [facility] 7 15:51:33 Candidal vulvovag initis [id number] Completed 201212/31/2013 RECORDED 08/23/19 13 9:42AM BY DEMARCO GARCIA MA, MONICA ON/ADDEN DUM Eri CantuMalinda rios [facility] 7 15:51:33 Abdomina l pain [id number] Completed 201101/20/2014 IMPRESSI ON: PAIN, BLOATING AND GAS X PASTA 1.5 WEEKS. LOCALIZE D LUQ BUT ALSO EPIGASTR IC D/C AND RLQ D/C ON EXAM. HX OF HIATAL HERNIA, GERD BUT NO OTHER CHRONIC GI SXS. NEEDS LAB, US. WILL CONTACT WITH RESULTS WHEN AVAIL, MAY ULTIMATE LY NEED GI REFERRAL FOR POSSIBLE SCOPE. IN MEANTIME FLUIDS, BLAND FOODS, CONTINUE WITH PREVACID .; RECORDED 01/18/20 12 10:54AM BY MONICA IVEY ON/ADDEN LEMUEL Castro, [facility] [address], [place], [address] , [facility] 10:49:28 Generali zed abdomina l pain [id number] Completed 201101/20/2014 RECORDED 01/23/20 12 11:01AM BY SARA ROWLAND MA, MONICA ON/ADDEN DUM Alfred Castro, [facility] [address], [place], [address] , [facility] [facility] 10:49:28 Acute maxillar y sinusiti s [id number] Completed 200601/20/2014 RESOLVED DATE: 01/14/20 07; RECORDED 01/14/20 07 10:19AM BY PEPE BROWN MD, ANNOTATI ON/ADDEN DUM Alfred Castro, [facility] [address], [place], [address] , [facility] 10:49:27 Acute pharyngi tis [id number] Completed 200801/20/2014 IMPRESSI ON: ULCERATI ONS ON OROPHARY NX, LOOK VIRAL RELATED, SALT WATER GARGLES; RECORDED 08/19/19 09 2:22PM BY YOLETTE LORD, VENTURAATI ON/ADDEN DUM Alfred Castro, [facility] [address] [facility] [address], [place], [address] , [facility] 10:49:27 Acute sinusiti s [id number] Completed 201101/20/2014 RECORDED 01/18/20 12 10:53AM BY ANAY ELKINS, MONICA ON/ADDEN DUM Eri Pepe-Malinda foy, [facility] 7 15:50:52 Allergic rhinitis [id number] Completed 201101/20/2014 IMPRESSI ON: WILL ADD DUE TO POORLY CONTROLL ED ALLERGIE S; RECORDED 01/18/20 12 10:54AM BY ANAY ELKINS, MONICA ON/ADDEN DUM Alfred Castro, [facility] [address] [facility] [address], [place], [address] , [facility] 10:49:27 Patient status finding [id number] Completed 201201/20/2014 RECORDED 10/03/19 13 11:17AM BY TITO RÍOS MA, VENTURAATI ON/ADDEN DUM Eri Glading-Malinda foy, [facility] 7 15:50:49 Screenin g for malignan t neoplasm of breast Completed 201101/20/2014 RECORDED 01/23/20 12 11:01AM BY SARA ROWLAND MA, MONICA ON/ADDEN DUM Alfred Castro, [facility] [address] [facility] [address], [place], [address] , [facility] 6 10:49:28 Conjunct ivitis [id number] Completed 201101/20/2014 RECORDED 01/18/20 12 10:53AM BY MONICA IVEY ON/ADDEN DUM [facility] 7 15:51:45 Conjunct ivitis [id number] Completed 201312/09/2016 RECORDED 12/11/19 14 2:58PM BY LAKIA MCKEON RN-BC, [facility]AGE [facility] 7 15:51:45 Female infertil ity [id number] Completed 201101/20/2014 RECORDED 01/18/20 12 10:53AM BY MONICA IVEY ON/ADDEN DUM Alfred Castro, [address] [address], [place], [address] , [facility] 6 10:49:27 Influenz a vaccine needed [id number] 06 Completed 201201/20/2014 RECORDED 04/25/20 13 3:14PM BY ANAY ELKINS, OFFICE VISIT Alfred Castro, [address] [address], [place], [address] , [facility] 10:49:28 General examinat ion of patient Completed 200801/20/2014 IMPRESSI ON: PAP UTD, HAS NOT HAD MAMMO, 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 CHECK LAST TETANUS AT FOLLOW UP; RECORDED 08/19/19 09 2:22PM BY MONICA BURNS ON/ADDEN LEMUEL Castro, [facility] [address] [address], [place], [address] , [facility] 10:49:28 Blood in urine [id number] Completed 200801/20/2014 RECORDED 08/19/19 09 2:22PM BY YOLETTE LORD, MONICA ON/ADDEN LEMUEL Castro, [facility] [address] [address], [place], [address] , [facility] 10:49:27 Laborato ry procedur e performe d [id number] Completed 201201/20/2014 RECORDED 08/23/19 13 9:42AM BY DEMARCO GARCIA MA, VENTURAATI ON/ADDEN LEMUEL Castro, [facility] [address] [address], [place], [address] , [facility] 6 10:49:28 Lumbar sprain [id number] Completed 201101/20/2014 RECORDED 01/18/20 12 10:53AM BY ANAY ELKINS, MONICA ON/HARDIK Castro, [facility] [address] [address], [place], [address] , [facility] 6 10:49:28 Infectiv e otitis externa [id number] Completed 200801/20/2014 RECORDED 08/19/19 09 2:24PM BY TITO RÍOS MA, ANNOTATI ON/HARDIK Castro, [facility] [address] [address], [place], [address] , [facility] 10:49:27 Eruption [id number] Completed 200801/20/2014 IMPRESSI ON: PERIANAL , TRUIAL OF STEROID, THEN ANTIFUNG AL AND THEN TREAT HEMORRHO IDS,; RECORDED 11/14/19 09 1:44PM BY TITO RÍOS MA, VENTURAATI ON/ADDEN DUM Eri foy, [facility] 7 15:51:03 Knee pain Completed 201201/20/2014 IMPRESSI ON: S/P INJURY 9 DAYS AGO, NO INSTABIL ITY ON EXAM, HAS UPCOMING NEOS APPT 09/04(SKNicholas [place]).; RECORDED 10/03/19 13 11:17AM BY TITO RÍOS MA, MONICA ON/ADDEN DUM Eri foy, [facility] 7 15:51:10 Chronic sinusiti s [id number] Completed 201101/20/2014 RECORDED 01/23/20 12 11:01AM BY SARA ROWLAND MA, MONICA ON/ADDEN DUM Alfred Castro, [facility] [address] [facility] [address] [facility], [place], [address] , [facility] 10:49:27 Disorder of skin and/or subcutan eous tissue [id number] Completed 201101/20/2014 IMPRESSI ON: 2 SMALL SKIN TAGS OVER EYES, SKIN GETS DRY AND THEY CAN GET IRRITATE D.REFER TO PLASTIC SURGERY FOR EVAL ABOUT REMOVAL; RECORDED 01/23/20 12 11:01AM BY SARA ROWLAND MA, MONICA ON/ADDEN DUM Alfred Castro, [facility] [address] [facility] [address] [facility], [place], [address] , [facility] 10:49:28 Thromboc ytopenic disorder [id number] Completed 201101/20/2014 RECORDED 01/23/20 12 11:01AM BY SARA ROWLAND MA, MONICA ON/ADDEN DUM Alfred Castro, [facility] [address] [facility] [address], [place], [address] , [facility] 10:49:27 Vaginiti s and vulvovag initis Completed 201101/20/2014 IMPRESSI ON: GETS YEAST INFECTIO N ON ANTIBIOT ICS; RECORDED 01/18/20 12 10:54AM BY MONICA IVEY ON/HARDIK Castro, [facility] [address] [facility] [address], [place], [address] , [facility] 10:49:27 Eruption [id number] Completed 12/09/2016 Eri Glading-Di blanca null, [facility] 7 15:51:03 Anemia [id number] Completed 10/23/2018 Eri Glading-Di blanca null, [facility] 9 14:09:03 Knee pain Completed 12/09/2016 Eri Glading-Di blanca null [facility] 7 15:51:10 Dysuria [id number] Completed 12/09/2016 Eri Glading-Di blanca null, [facility] 7 15:51:13 Hemorrho ids [id number] Completed 12/09/2016 Eri Glading-Di blanca null, [facility] 7 15:51:30 Cervical radiculo mladonado [id number] Completed 12/09/2016 Eri Glading-Di blanca null [facility] 7 15:51:25 Hand pain [id number] Completed 12/09/2016 Eri Glading-Di blanca null, [facility] 7 15:51:20 Vaginiti s [id number] Completed 12/09/2016 Eri Glading-Di blanca null [facility] 7 15:51:08 Rectal pain [id number] Completed 12/09/2016 Eri Glading-Di blanca null [facility] 7 15:51:39 Major depressi on single episode, in partial remissio n [id number] Active 2018 Not Available [facility] 2 13:23:03 Dysplasi a of colon [id number] Completed 201803/24/2023 precance jimbo colon polyps, colonosc opy every 3 years DANYA PEARL MD [address], [place], [address] , [facility] 07:40:24 Swollen ankle region [id number] Active 2022 Torsten Lambert MD [address], [place], [address] , [facility] 20:52:43 Hypertri glycerid emia 549372596 Active 2022 DANYA PEARL MD [address], [place], [address] , [facility] 14:10:56 Impaired fasting glycemia [id number] Active 2022 Torsten Lambert MD [address], [place], [address] , [facility] 10:53:53 Herpes simplex type 1 infectio n [id number] Active 2023 Catherine Pineda LPN null, [facility] 4 16:26:34 Problem Notes None recorded. Procedures Surgical History Date Name Laterality Status Provider Name and Address Organization Details Recorded Time 07/04 Colonoscopy completed Monica Lay [facility] 3 14:35:37 02/04 Most Recent Mammogram completed Apurva Moses [facility] 2 11:40:13 02/04 Mammogram both breasts completed Apurva Moses [facility] 2 11:40:01 06/23 Eye Surgery completed Anay Elkins MA [facility] 1 10:43:04 01/22 Date of Last Colonoscopy completed Rossanaschema García [facility] 9 16:13:01 01/22 esophagogastroduodenoscopy completed Keisha Lemus [facility] 9 16:13:45 06/12 Date of Last Pap Smear completed Anay Elkins MA [facility] 9 09:10:59 06/12 Cholecystectomy completed Anay Elkins MA [facility] 1 10:43:04 06/12 Back Surgery completed Anay Elkins MA [facility] 1 10:43:04 Cholecystectomy completed Anay Elkins MA [facility] 1 10:43:04 Back Surgery completed Anay Elkins MA [facility] 1 10:43:04 Imaging Results Imaging Date Name Status LastModified by Organization Details LastModified Time 01/04/2023 XR, ankle, 3 or more view completed [facility] ([facility]) [address] [place] [address], [address], 01/05/2023 16:44:36 04/22/2023 electrocardiogram completed [email or web address] In-Offi ce Order Internal Use Only DO Not Attach Compendium DO Not Attach Compendium, Do Not Delete/merge, [id number] 04/22/2023 12:17:12 04/22/2023 electrocardiogram completed LAMAR In-Offi ce Order Internal Use Only DO Not Attach Compendium DO Not Attach Compendium, Do Not Delete/merge, [id number] 04/27/2023 11:56:49 Procedure Notes None recorded. Medical Equipment None Reported. Allergies Allergen ID Allergen Name Allergen Category Reaction Reaction Severity Criticality Documentation Date Start Date Code Code System Note Provider Name and Address Organization Details Recorded Time 36303 topiramat e medicatio n other severe Not available 10/23/2018 58713 RxNorm cause d depre ssion YOLETTE Ivey, [facility] 9 09:18:06 9030 Oxycontin medicatio n itching Not available Not available 12/24/2013 46546 6 RxNorm sensi Patience Castro, [facility] [address] [facility] [address], [facility] [place], [phone], [facility] 10:50:38 9031 acetamino phen / hydrocodo ne medicatio n Not available Not available Not available 12/24/20132007 47852 2 RxNorm COMME NT: RECOR DED 02/21 4:10P M BY YOLETTE COOK, OFFIC E VISIT ; Not Available [facility] 4 13:26:00 Medications Name Sig Start Date Stop Date Status Note LastModified by Organization Details LastModified Time carisopro dol 350 mg tablet TAKE 1 TABLET BY MOUTH THREE TIMES A DAY DIRECTED active Not Available Not Available No t Available amoxicill in 500 mg capsule TAKE 1 TABLET BY MOUTH THREE TIMES A DAY FOR 7 DAYS 01/26 completed Not Available Not Available Not Available azithromy adri 250 mg capsule DIRECTED 08/14 completed RECORDED 09/11/19 11 8:39AM BY PEPE BROWN MD, MEDICATI ON AUTO-VANDANA CTIVATIO N;TWO TABS DAY ONE, FOLLOWED BY ONE TAB DAILY DAYS 2-5 Not Available Not Available Not Available betametha sone valerate 0.1 % topical ointment 09/15 completed Not Available Not Available Not Available diclofena c 3 % topical gel Apply 2-3 gm topicall y, 4 times daily. active Not Available Not Available No t Available clonidine HCl 0.1 mg tablet TAKE 1 TABLET (0.1 MG) ORALLY BEDTIME NEEDED FOR FOR INSOMNIA active Not Available Not Available No t Available prednison e 10 mg tablet TAKE 4 TABS DAILY X3 DAYS, THEN 3 DAILY X3 DAYS, THEN 2 DAILY X3 DAYS, THEN 1 DAILY X3 DAYS 12/31 completed Not Available Not Available Not Available gabapenti n 600 mg tablet active Not Available Not Available Not Available Cortispor in 3.5 mg/mL-10, 000 unit/mL-1 % ear drops,tomasz pension QID 03/21 completed RECORDED 05/19/20 07 10:36AM BY NALDO ROJAS, MEDICATI ON AUTO-VANDANA CTIVATIO N; Not Available Not Available Not Available CombiPatc h 0.05 mg-0.14 mg/24 hr transderm al APPLY 1 PATCH TOPICALL Y EVERY MONDAY AND MONDAY X28 DAYS TO THE LOWER ABDOMEN 12/31 completed Not Available Not Available Not Available ibuprofen 800 mg tablet TAKE 1 TABLET (800 MG) BY MOUTH EVERY 8 HOURS PRN active Not Available Not Available No t Available nystatin 100,000 unit/gram topical ointment BID 06/10 completed Not Available Not Available Not Available fluconazo le 150 mg tablet Take 1 tablet every day by oral route as directed for yeast vaginiti s. May repeat after 72 hours as needed. for 1 day. 10/23 completed Not Available Not Available Not Available valacyclo vir 1 gram tablet TAKE 2 TABLETS BY MOUTH EVERY 12 HOURS NEEDED FOR 1 DAY active Not Available Not Available No t Available Darvocet- N 100 100 mg-650 mg tablet Q6HR 04/13 completed RECORDED 05/19/20 07 10:36AM BY NALDO ROJAS, MEDICATI ON AUTO-VANDANA CTIVATIO N; Not Available Not Available Not Available meloxicam 15 mg tablet TAKE 1 TABLET BY MOUTH EVERY DAY 03/24 completed Not Available Not Available Not Available Elidel 1 % topical cream 09/15 completed Not Available Not Available Not Available metaxalon e 400 mg tablet 1 tablet every 8 hours as directed 06/10 completed Not Available Not Available Not Available prednison e 20 mg tablet SEE NOTES 11/19 completed RECORDED 11/22/19 13 2:10PM BY GIN THAYER, MEDICATI ON AUTO-VANDANA CTIVATIO N; Not Available Not Available Not Available Zithromax Z-Leo 250 mg tablet DIRECTED 11/22 completed RECORDED 12/01/19 10 1:21PM BY GIN BENEDICT, MEDICATI ON AUTO-VANDANA CTIVATIO N;TWO TABS DAILY ON DAY 1, THEN ONE TAB DAILY ON DAYS 2-5. Not Available Not Available Not Available clindamyc in HCl 150 mg capsule 11/23 completed Not Available Not Available Not Available Wellbutri n SR 150 mg tablet, 12 hr sustained -release QD 08/30 completed RECORDED 08/31/19 07 1:50PM BY YOLETTE LORD, MEDICATI ON AUTO-VANDANA CTIVATIO N;THIS ORDER DISCONTI NUED PER [facility]. Not Available Not Available Not Available Advair Diskus 100 mcg-50 mcg/dose powder for inhalatio n INHALE 1 PUFF BY MOUTH 2 TIMES A DAY 06/10 completed Not Available Not Available Not Available topiramat e 25 mg tablet 10/23 completed Not Available Not Available Not Available ProctoCre am-HC 2.5 % rectal cream with applicato r one applicat ion bid 11/23 completed Not Available Not Available Not Available ciproflox acin 250 mg tablet Take 1 tablet every 12 hours by oral route for 7 days. active Not Available Not Available No t Available estradiol 0.05 mg/24 hr semiweekl y transderm al patch APPLY 1 PATCH TOPICALL Y EVERY MONDAY AND MONDAY ,X90 DAYS active Not Available Not Available No t Available hydrocort isone acetate 25 mg rectal supposito ry Insert 1 supposit ory twice a day by rectal route for 14 days. 11/23 completed Not Available Not Available Not Available nystatin- triamcino lone 100,000 unit/gram -0.1 % topical ointment 09/15 completed Not Available Not Available Not Available oxycodone -acetamin ophen 5 mg-325 mg tablet TWO TIMES DAILY, NEEDED 02/15 completed RECORDED 02/19/20 09 9:00AM BY ERI Santillan MD, MEDICATI ON AUTO-VANDANA CTIVATIO N; Not Available Not Available Not Available amoxicill in 875 mg tablet THREE TIMES DAILY 10/20 completed RECORDED 11/07/19 13 11:41AM BY GIN THAYER, MEDICATI ON AUTO-VANDANA CTIVATIO N; Not Available Not Available Not Available lorazepam 0.5 mg tablet active Not Available Not Available Not Available trazodone 100 mg tablet TAKE 2 TABLETS BY MOUTH AT BEDTIME active Not Available Not Available No t Available Proctozon e-HC 2.5 % topical cream perineal applicato r 11/23 completed Not Available Not Available Not Available benzonata te 100 mg capsule Take 1 capsule 3 times a day by oral route for 10 days. 12/10 completed Not Available Not Available Not Available lansopraz ole 30 mg capsule,d elayed release TAKE 1 CAPSULE BY MOUTH EVERY DAY DIRECTED active Not Available Not Available No t Available polymyxin B sulfate 10,000 unit-trim ethoprim 1 mg/mL eye drops QID active Not Available Not Available No t Available metronida zole 0.75 % topical cream 09/15 completed Not Available Not Available Not Available ibuprofen 400 mg tablet THREE TIMES DAILY, NEEDED 09/17 completed RECORDED 09/19/19 09 1:32PM BY UNIQUE MALONE MD, MEDICATI ON AUTO-VANDANA CTIVATIO N; Not Available Not Available Not Available Advair Diskus 250 mcg-50 mcg/dose powder for inhalatio n Inhale 1 puff every day by inhalati on route as needed. 12/04 completed Not Available Not Available Not Available Advair Diskus 500 mcg-50 mcg/dose powder for inhalatio n TWO TIMES DAILY 10/16 completed RECORDED 11/07/19 13 11:41AM BY GIN THAYER, MEDICATI ON AUTO-VANDANA CTIVATIO N; Not Available Not Available Not Available gabapenti n 300 mg capsule 10/23 completed Not Available Not Available Not Available monteluka st 10 mg tablet DAILY 01/24 completed RECORDED 01/25/20 12 11:11AM BY AMINATA ROMANO ANNOTATI ON/HARDIK HDEZ; Not Available Not Available Not Available mometason e 0.1 % topical ointment APPLY A THIN LAYER TO THE AFFECTED AREA(S) BY TOPICAL ROUTE ONCE DAILY 12/04 completed Not Available Not Available Not Available zolpidem 5 mg tablet TAKE 1 TABLET BY MOUTH AT BEDTIME NEEDED FOR SLEEP active Not Available Not Available No t Available gabapenti n 100 mg capsule Take 2 capsules 3 times a day by oral route for 30 days. active Not Available Not Available No t Available clobetaso l 0.05 % topical ointment Apply by topical route as needed for 15 days. active Not Available Not Available No t Available lorazepam 1 mg tablet Take 1 tablet every day by oral route as needed for 30 days. active Not Available Not Available No t Available ibuprofen 600 mg tablet Take 1 tablet 3 times a day by oral route as needed for 15 days. active Not Available Not Available No t Available zolpidem 10 mg tablet QD active Not Available Not Available Not Available methylpre dnisolone 4 mg tablets in a dose pack TAKE 6 TABLETS ON DAY 1 DIRECTED ON PACKAGE AND DECREASE BY 1 TAB EACH DAY FOR A TOTAL OF 6 DAYS 11/08 completed Not Available Not Available Not Available hydroxyzi ne HCl 10 mg tablet TAKE 1 TABLET BY MOUTH EVERY 8 HOURS NEEDED FOR 3 DAYS 12/31 completed Not Available Not Available Not Available fluticaso ne propionat e 50 mcg/actua tion nasal spray,tomasz pension [place] 2 sprays every day by intranas al route. 2016 active Not Available Not Available Not Avai lable doxepin 5 % topical cream Apply 1-2 gm topicall y, 3 times a day to affected area. If feeling drowsy, apply at bed time. active Not Available Not Available No t Available doxycycli ne hyclate 100 mg tablet Take 1 tablet twice a day by oral route for 10 days. 12/10 completed Not Available Not Available Not Available naproxen 500 mg tablet Take 1 tablet twice a day by oral route for 30 days. active Not Available Not Available No t Available progester one micronize d 100 mg capsule TAKE 1 CAPSULE BY MOUTH EVERY DAY active Not Available Not Available No t Available amoxicill in 875 mg-[place] ium clavulana te 125 mg tablet Take 1 tablet every 12 hours by oral route as directed for 10 days. active Not Available Not Available No t Available tobramyci n 0.3 %-dexamet hasone 0.1 % eye drops,tomasz pension active Not Available Not Available Not Available oxycodone 5 mg tablet TAKE 1 TABLET BY MOUTH TWICE A DAY NEEDED FOR PAIN active Not Available Not Available No t Available neomycin 3.5 mg/g-poly myxin B 10,000 unit/g-de xameth 0.1 % eye oint APPLY TO UPPER EYE LIDS 4 TIMES A DAY DIRECTED 12/04 completed Not Available Not Available Not Available albuterol (refill) 90 mcg/actua tion aerosol inhaler Q 4-6 HRS PRN COUGH/WH EEZE 2012 active RECORDED 04/25/20 13 3:05PM BY ANAY ELKINS, OFFICE VISIT; Not Available Not Available Not Available azithromy adri 500 mg tablet QD 09/04 completed RECORDED 09/27/19 07 11:37AM BY NALDO ROJAS, MEDICATI ON AUTO-VANDANA CTIVATIO N; Not Available Not Available Not Available escitalop rodger 10 mg tablet TAKE 1 TABLET BY MOUTH EVERY DAY active Not Available Not Available No t Available codeine-g uaifenesi n oral syrup Q 4 HOURS PRN COUGH 2012 active RECORDED 04/25/20 13 3:05PM BY ANAY ELKINS, OFFICE VISIT; Not Available Not Available Not Available bupropion HCl XL 300 mg 24 hr tablet, extended release TAKE 1 TABLET BY MOUTH EVERY DAY active Not Available Not Available No t Available bupropion HCl XL 150 mg 24 hr tablet, extended release QD active Not Available Not Available Not Available escitalop rodger 5 mg tablet QD 09/10 completed RECORDED 09/11/19 11 8:52AM BY ANAY ELKINS, OFFICE VISIT; Not Available Not Available Not Available fluocinon brian 0.1 % topical cream Apply (2-3gm) to affected area 3-4 times a day or as directed . active Not Available Not Available No t Available tizanidin e 2 mg capsule active Not Available Not Available Not Available lidocaine 3 %-hydroco rtisone 1 % (7 gram) rectal kit Insert 1 kit by rectal route for 30 days. 06/10 completed Not Available Not Available Not Available pregabali n 75 mg capsule TAKE 1 CAPSULE BY MOUTH TWICE A DAY active Not Available Not Available No t Available Vitamin C 1 tablet daily active Not Available Not Available No t Available Flonase DAILY 2011 active RECORDED 10/17/19 12 5:31PM BY ERI Santillan MD, REFILL REQUEST; Not Available Not Available Not Available Robitussi n-CF Q 6HR/PRN 09/10 completed RECORDED 09/11/19 11 8:51AM BY ANAY ELKINS, OFFICE VISIT; Not Available Not Available Not Available Amoxil BID 06/02 completed RECORDED 06/06/20 07 5:19PM BY ERI Santillan MD, MEDICATI ON AUTO-VANDANA CTIVATIO N; Not Available Not Available Not Available omeprazol e DAILY 04/25 completed RECORDED 04/25/20 13 3:05PM BY ANAY ELKINS, OFFICE VISIT; Not Available Not Available Not Available Fish Oil 1 tablet daily active Not Available Not Available No t Available Prevacid QD 04/25 completed RECORDED 04/25/20 11 10:13AM BY AMINATA ROMANO, ANNOTATI ON/ADDEN DUM;THIS ORDER DISCONTI NUED PER MEDI-SPA N. Not Available Not Available Not Available GaviLyte- G 236 gram-22.7 4 gram-6.74 gram-5.86 gram oral solution TAKE 8 OUNCE BY MOUTH DIRECTED 11/02 completed Not Available Not Available Not Available Probiotic daily active Not Available Not Mikayla ilable Not Available Mediplast Reynolds-Call us-Wart Remover 40 % topical patch Apply 1 patch every day by topical route as directed . 06/10 completed Not Available Not Available Not Available lidocaine 5 % topical ointment Apply 2 grams to affected area(s) 3-4 times a day. Do not exceed 8 grams a day. active Not Available Not Available No t Available Plenvu 140 gram-9 gram-5.2 gram powder packs 11/14 completed Not Available Not Available Not Available Paxlovid 300 mg (150 mg x 2)-100 mg tablets in a dose pack TAKE 3 TABLETS TWICE A DAY BY ORAL ROUTE DIRECTED FOR 5 DAYS. 11/02 completed Not Available Not Available Not Available Vitals Date Recorded Body height Body mass index (BMI) Body weight Oxygen saturation Oxygen saturation in Arterial blood by Pulse oximetry Body temperature Provider Name and Address Organization Details Last Updated DateTime 3 167.64 cm 30.8 kg/m2 00908.1 4 g 98 % 98 % 98.1 [degF] Tito suggs MA [facility] 3 09:54:38 Date Recorded Heart rate Systolic blood pressure Diastolic blood pressure Provider Name and Address Organization Details Last Updated DateTime 11/08/2022 99 /min 124 mm[Hg] 80 mm[Hg] Sweetie Knott MD [address] [address], [place], [address], [facility] 11/08/2022 10:16:12 Date Recorded Body height Provider Name an d Address Organization Details Last Updated DateTime 11/15/2022 167.64 cm Mendy Cook MA [facility] 11/15/2022 13:42:42 Date Recorded Body height Body mass index (BMI) Body weight Heart rate Oxygen saturation Oxygen saturation in Arterial blood by Pulse oximetry Body temperature Systolic blood pressure Diastolic blood pressure Provider Name and Address Organization Details Last Updated DateTime 3 167.64 cm 31.9 kg/m2 79014.8 g 116 /min 97 % 97 % 97.7 [degF] 129 mm[Hg] 87 mm[Hg] Karrie Hassan MA [facility] 3 11:41:15 Date Recorded Body height Body mass index (BMI) Body weight Oxygen saturation Oxygen saturation in Arterial blood by Pulse oximetry Heart rate Body temperature Systolic blood pressure Diastolic blood pressure Provider Name and Address Organization Details Last Updated DateTime 3 167.64 cm 31.6 kg/m2 42714.1 g 99 % 99 % 92 /min 97.6 [degF] 126 mm[Hg] 80 mm[Hg] Anay Elkins MA [facility] 3 13:00:55 Date Recorded Body height Body mass index (BMI) Body weight Heart rate Oxygen saturation Oxygen saturation in Arterial blood by Pulse oximetry Body temperature Systolic blood pressure Diastolic blood pressure Provider Name and Address Organization Details Last Updated DateTime 3 167.64 cm 30.8 kg/m2 20749.1 4 g 86 /min 98 % 98 % 98 [degF] 123 mm[Hg] 83 mm[Hg] Pao Bernal MA [facility] 3 10:05:10 Social History Question Answer Notes LastModified by Organizat ion Details LastModified Time Tobacco Smoking Status [facility]/12/2014 14:26:17 What Is Your Level Of Alcohol Consumption? Occasional [email or web address] Information not available 03/12/2014 Is Blood Transfusion Acceptable In An Emergency? Yes [email or web address] Information not available 11/15/2019 What Is Your Level Of Caffeine Consumption? Occasional 1 Cup Coffee Daily Information not available 01/26/2022 How Much Tobacco Do You Chew? None [email or web address] Information not available 12/04/2020 Are You Currently Employed? Yes Information not available 03/12/2014 What Type Of Diet Are You Following? REGULAR Information not available 01/26/2022 Which Illicit Or Recreational Drugs Have You Used? No [email or web address] Information not available 12/04/2020 Do You Or Have You Ever Used E-cigarettes Or Vape? Never Used Electronic Cigarettes Information not available 03/03/2022 What Is Your Occupation? [employer] [email or web address] Information not available 12/04/2020 Live Alone Or With Others? With Others Information not available 03/03/2022 Do You Take Precautions To Prevent Distracted Driving? Yes [email or web address] Information not available 11/15/2019 How Often Do You Need To Have Someone Help You When You Read Instructions, Pamphlets, Or Other Written Material From Your Doctor Or Pharmacy? Never [email or web address] Information not available 11/15/2019 Have You Served In The ? No [email or web address] Information not available 11/15/2019 Have You Or Anyone In Your Household Had Any Of The Following Symptoms In The Last 14 Days: Sore Throat, Cough, Chills, Body Aches For Unknown Reasons, Shortness Of Breath For Unknown Reasons, Loss Of Smell, Loss Of Taste, Fever At Or Greater Than 100 Degrees Fahrenheit? No Information not available 06/10/2020 Are You Or Anyone In Your Household A Health Care Provider Or Emergency Responder? No Information not available 06/10/2020 To The Best Of Your Knowledge Have You Been In Close Proximity To Any Individual Who Tested Positive For COVID-19? No Information not available 06/10/2020 Have You Recently Traveled To A [facility] High Risk Area Or Gathering In The Last 10 Days? No [email or web address] Information not available 12/04/2020 What Was The Date Of Your Most Recent Tobacco Screening? 03/24/2023 [email or web address] Information not available 03/24/2023 How Many Children Do You Have? 1 [email or web address] Information not available 11/15/2019 Do You Use Protection During Sex? No Information not available 01/26/2022 Do You Use Your Seat Belt Or Car Seat Routinely? Yes Information not available 01/26/2022 Seat Belts Used Routinely Yes Information not available 03/03/2022 Are You Sexually Active? No [email or web address] Information not available 12/04/2020 Smoke Alarm In Home Yes Information not available 03/03/2022 Do You Have Smoke And Carbon Monoxide Detectors In Your Home? Yes Information not available 01/26/2022 Are You Passively Exposed To Smoke? No [email or web address] Information not available 12/04/2020 Do You Or Have You Ever Used Smokeless Tobacco? Never Used Smokeless Tobacco [email or web address] Information not available 11/15/2019 General Stress Level High [email or web address] Information not available 03/24/2023 Do You Use Any Illicit Or Recreational Drugs? No Information not available 03/03/2022 Do You Use Sunscreen Routinely? Yes [email or web address] Information not available 03/12/2014 Do You Or Have You Ever Used Any Other Forms Of Tobacco Or Nicotine? No Information not available 03/03/2022 Sex: Unknown Functional Status Question Answer Note LastModified by Organizat ion Details LastModified Time Are you able to walk? YESWOREST walking 4-5 times per week Information not available 03/03/2022 Are you able to care for yourself? Yes [email or web address] Information not available 03/12/2014 What is your exercise level? Occasional Information not available 12/04/2020 Mental Status None recorded. Family History Relationship Description Onset Age of this Age Resolved Age Notes LastModified by Organization Details LastModified Time Maternal Grandmother Diabetes mellitus [email or web address] Not available 10:35:01 Notes:Pt is adopted limited knowledge of FH Medical History Condition Response Anxiety Disorder Y Muscle, Joint, or Bone Problems Y Skin Problems Y Vision or Eye Problems Y Acid Reflux (GERD) Y Depression Y Asthma Y Allergies Y GI Problems Y Gynecological History Statement/Question Response Date of Last Pap Smear 06/12/2016 Date of Last Colonoscopy 01/22/2019 Most Recent Mammogram 02/04/2022 Obstetrics History GPAL:G 0 P 0 0 0 0 Immunizations Vaccine Type Date Status Note Provider Name and Address Organization Details Recorded Time COVID-19, mRNA, LNP-S, PF, 100 mcg/0.5mL dose or 50 mcg/0.25mL dose 10/01/19 21 completed Not Available [facility] 03/31/2022 13:23:03 Influenza, split virus, trivalent, PF 06/29/19 13 completed Not Available [facility] 03/31/2022 13:23:03 COVID-19, mRNA, LNP-S, PF, 100 mcg/0.5mL dose or 50 mcg/0.25mL dose 05/13/20 21 completed Not Available [facility] 03/31/2022 13:23:03 COVID-19, mRNA, LNP-S, PF, 100 mcg/0.5mL dose or 50 mcg/0.25mL dose 10/28/19 21 completed Not Available [facility] 03/31/2022 13:23:03 Influenza, split virus, trivalent, PF 03/13/20 14 completed Not Available [facility] 06/29/2019 02:21:57 Influenza, split virus, quadrivalent, PF 03/24/20 23 completed DANYA PEARL MD [address], [address], [facility] 03/24/2023 13:35:32 zoster recombinant 03/24/20 23 cancelled patient objection DANYA PEARL MD [address], [address] [facility] [place] 03/24/2023 13:41:28 Influenza, split virus, trivalent, preservative 03/10/20 09 completed Not Available [facility] 03/31/2022 13:23:03 Influenza, split virus, trivalent, preservative 03/10/20 11 completed Not Available [facility] 03/31/2022 13:23:03 Tdap 06/12/19 03 completed Not Available [facility] 03/31/2022 13:23:03 influenza, seasonal, intradermal, preservative free 04/25/20 13 completed Not Available [facility] 03/31/2022 13:23:03 Tdap 06/12/19 12 completed Not Available [facility] 03/31/2022 13:23:03 Past Encounters Encounter ID Performer Location Encounter Start Date Encounter Closed Date Diagnosis/Indication Diagnosis SNOMED-CT Code Diagnosis ICD10 Code Diagnosis Note [id number] auto[facility]Comm erce [address] [facility],[address] [place] [address] 08/30/2006 00:00:00 [id number] [address] [place] [address] 01/13/2007 00:00:00 [id number] autoEComm erce [address] [facility],[address] [place] [address] 03/14/2007 00:00:00 [id number] autoEComm erce [address] [facility] [address] [place] [address] 05/19/2007 00:00:00 [id number] auto[facility]Comm erce [address] [facility] [address] [place] [address] 05/23/2007 00:00:00 [id number] auto[facility]Comm erce [address] [facility] [address] [place] [address] 05/30/2007 00:00:00 [id number] auto[facility]Comm erce [address] [place] [address] 02/22/2008 00:00:00 [id number] auto[facility] erce [address] [place] [address] 08/18/2008 00:00:00 [id number] autoEComm erce [address] [facility],[address] [place] [address] 09/04/2008 00:00:00 [id number] autoEComm erce [address] [place] [address] 11/13/2008 00:00:00 [id number] [address]Comm erce [address] [place] [address] 12/04/2008 00:00:00 [id number] auto[facility]Comm erce [address] [place] [address] 01/16/2009 00:00:00 [id number] auto[facility]Comm erce [address] [place] [address] 02/06/2009 00:00:00 [id number] autoEComm erce [address] [facility] [address] [place] [address] 06/10/2009 00:00:00 [id number] autoEComm erce [address] [facility],[address] [place] [address] 08/27/2009 00:00:00 [id number] autoEComm erce [address] [facility] [address] [place] [address] 09/07/2009 00:00:00 [id number] autoEComm erce [address] [facility] [address] [place] [address] 11/17/2009 00:00:00 [id number] autoEComm erce [address] [facility],[address] [place] [address] 08/09/2010 00:00:00 [id number] autoEComm erce [address] [facility] [address] [place] [address] 09/10/2010 00:00:00 [id number] autoEComm erce [address] [place] [address] 02/03/2011 00:00:00 [id number] autoEComm erce [address] [facility] [address] [place] [address] 03/10/2011 00:00:00 [id number] autoEComm erce [address] [facility] [address] [place] [address] 07/19/2011 00:00:00 [id number] autoEComm erce [address] [facility],[address] [place], [place] [address] 01/18/2012 00:00:00 [id number] autoEComm erce [address] [facility],[address] [place], [place] [address] 08/22/2012 00:00:00 [id number] autoEComm erce [address] [facility],[address] [place], [place] [address] 10/02/2012 00:00:00 [id number] autoEComm erce [address] [facility],[address] [place], [place] [address] 11/06/2012 00:00:00 [id number] autoEComm erce [address] [facility] [place], [place] [address] 04/25/2013 00:00:00 [id number] Anay Elkins MA Main Office [address] [address] [place] [address] 03/12/2014 14:11:44 03/12/2014 15:12:39 Needs influenza immunization 300827043 Eruption 438773548 pt to see derm if not improved with hydrating lotion, aveeno baths, steroid cream for perirectal area that gets eczema Anemia 212003581 check l abs [id number] Main Office [address] [address] [place] [address] 05/06/2014 08:39:07 05/06/2014 09:15:00 Knee pain 34623917 Recommend NSAIDs, ice, rest. Discontinu e muscle relaxer and gabapentin . [id number] Anay Elkins MA Main Office [address] [address] [place] [address] 08/20/2014 10:25:17 08/20/2014 10:59:11 Cervical radiculopathy 04625897 new to pt, most likely due to funny sleeping position, pt to take gabapentin 300-600 at night and 100mg bid in day, makes her foggy int he day, take motrin, heat and muscle relaxer, was told not o have chiropract ic manipulati ons now, give it 2 weeks to calm down, xray if worsens or chiropract or needs it. Gastroesop hageal reflux disease 074001937 on meds that help, sleeps in recliner due to GERD [id number] Unique bragg Main Office [address] [address] [place] [address] 06/15/2015 15:04:31 06/15/2015 15:53:17 Hand pain 46795678 M79.641 [id number] Eri Rajni marshenzo Main Office [address] [address] [place] [address] 08/06/2015 10:31:48 08/06/2015 10:57:28 Acute sinusitis 29899490 J01.90 Symptomati c treatment- lots of fluids, rest, tea with honey, OTC cough drops/ cough med as needed, humidifier , nasal sinus rinses as needed. Augmentin BID x 10 days. Vaginitis 98259582 N76.0 [id number] Eri Rajni rios Main Office [address] [address] [place] [address] 10/28/2015 10:22:46 10/28/2015 11:41:40 Hemorrhoids 95702552 K64.8 Inflamed hemorrhoid s. Start Anusol suppositor ies internally and Lidocaine- hydrocorti sone rectal kit. Ashvin with the proctologi st if no sign improvemen ts by next week. Rectal pain 02119942 K62 .89 [id number] Eri Rajni rios Main Office [address] [address] [place] [address] 03/10/2016 14:08:46 03/10/2016 14:42:40 Contact dermatitis caused by urushiol from poison sumac 56973003 L25.5 treat as below due to hx of severe reaction to sumac [id number] Eri Rajni rios Main Office [address] [place] [address] [place] [address] 11/23/2016 13:34:25 11/23/2016 14:18:11 Acute sinusitis 75945297 J01.90 Pt. is advised to start Abs as directed , Fluticason e to continue and call office if no improvemen t from medication . Reactive a irway disease 1675556600 06 J45.909 Continue Suzi DElzbieta 100-50 BID. Acute laryngitis 7339389 J04.0 [id number] Torsten Lambert MD Main Office [address] [address] [place] [address] 12/10/2016 09:55:04 12/10/2016 10:56:50 Arthralgia of the ankle and/or foot 292628273 M25.579 Given duration of pain will image to rule out fracture/s evere arthritic changes. Refer to ortho for further management recommenda tions. Plantar wa rt of left foot 3902306349 1237142 B07.0 INB/worse to home/OTC therapy call for referral to podiatry. [id number] Eri Rajni vallejo Main Office [address] [place] [address] [place] [address] 05/03/2017 13:05:42 05/03/2017 13:53:14 Adult health examination 314698673 Z00.00 pt to set up mammogram, increase exercise Hypercholesterolemia 136 63587 E78.2 check fasting Eruption 128504403 R21 pt to see derm for several reasons including wart on finger, rash Hand wart 096875973 B07. 8 Allergy to food 41594001 1 Z91.018 pt to see paraplanner, [id number] Torsten Lambert MD Main Office [address] [address] [place] [address] 09/15/2017 14:50:01 09/15/2017 15:39:09 Pain in upper limb 591744519 M79.601 M79.602 ? overuse injury vs tendinitis vs CTS. Brace and NSAID advised while waiting for ortho eval. Given multiple joint/pain issues will screen for vit D deficiency . [id number] Eri Rajni marshenzo Main Office [address] [place] [address] [place] [address] 10/23/2018 08:57:36 10/23/2018 09:54:42 Adult health examination 832094590 Z00.00 pt to set up mammogram, increase exercise as tolerated by her back Screening for malignant neoplasm of breast 005069007 Z12.39 pt to arrange Screening for malignant neoplasm of colon 135740772 Z12.11 we will arrange first appt Major depr ession single episode, in partial remission 94006204 F32.4 sees psychiatry for meds depression and sleep, depression flared from topamax, she feels flat at times. will discuss with psychiatry Chronic low back pain 27 3550031 M54.5 sees [facility] [id number] Nelda Mcwilliams PA-C Main Office [address] [facility] [address] [place] [address] 02/27/2019 13:27:45 02/27/2019 13:44:19 Angular cheilitis 137981489 K13.0 Recom to start using antifungal cream and blistex BID. [id number] Eri rios Main Office [address] [facility] [address] [place] [address] 11/15/2019 10:15:57 11/15/2019 11:49:16 Adult health examination 000728039 Z00.00 pt to set up mammogram, increase exercise as tolerated by her back, has appt with yield clerk in summer Moderate p ersistent asthma 069130075 J45.40 asthma is stable continue med Screening for malignant neoplasm of breast 244459476 Z12.39 pt to arrange Gastroesop hageal reflux disease 883782620 K21.9 on meds that help Major depr ession single episode, in partial remission 06697958 F32.4 sees psychiatry for meds depression and sleep, depression flared from topamax, she feels flat at times. will discuss with psychiatry Polyp of colon 44603269 K63.5 utd on colonoscop y [id number] Pepe Martinez MD Main Office [address] [facility] [address] [place] [address] 06/10/2020 08:57:59 06/10/2020 09:25:37 Pre-surgery evaluation 444551693 Z01.818 1.Pre-Surg ical Evaluation /Surgical Clearance for Blepharopl asty-- Clinical cardiac predictor( s): None-- Surgical risk level: Low-- Functional Status: Excellent- - Revised Cardiac Risk Index (RCRI) for Pre-Operat maritza Risk: 0-- Vitals reviewed and labs pending-- Imaging: Not indicated- - EKG: Not indicated. -- Labs ordered result pending-- Informed patient NPO at midnight-- Plan of care discussed with patient.-- Askew score 0% Risk of myocardial infarction or cardiac arrest, intraopera tively or up to 30 days post-op-- Medical clearance : Patient is stable to proceed for procedure if labs WNL. Per Azar, patient is at low risk for cardiopulm onary complicati ons with planned procedure based on comorbidit ies, exertional tolerance and overall procedure risk. Advised to avoid NSAIDS/ASA . Ptosis of eyelid 1121145 0 H02.409 patient following opthamolog y is scheduled to have Blepharopl asty 06/23/2020 [id number] Eri rios Main Office [address] [facility] [address] [place] [address] 12/04/2020 10:27:47 12/04/2020 11:16:46 Adult health examination 861384923 Z00.00 breast exam done today, shots and colonoscop y are utd, stressful year, will start counseling Gastroesop hageal reflux disease 744127031 K21.9 on meds that help flare yesterday with poorly tolerated foods Major depr ession single episode, in partial remission 05423008 F32.4 sees psychiatry for meds depression and sleep, depression flared with Covid, she has sadness with her daughter who is 12 gaining a lot of weight pt is setting up family counseling . Epigastric discomfort 11 1817239 R10.13 from eating poor choices yesterday, no acute abdomen On examina tion - herpes labialis-cold sore 168753547 B00.1 [id number] Radha Gutierrez Main Office [address] [facility] [address] [place] [address] 01/26/2022 14:21:51 01/26/2022 15:47:05 Adult health examination 428630630 Z00.00 Pt is in good general health. Social and family history reviewed. Immunizati ons reviewed, advised annual flu shot, due for Td, will check with work. . She is upt to date on dental and eye providers, mammogram up to date, colon up to date, Reviewed diet and exercise. Gastroesop hageal reflux disease 551427644 K21.9 ongoing sx, will see GI Major depr ession single episode, in partial remission 71181905 F32.4 sees psychiatry for meds depression and sleep, depression flared with Covid, stable at this time. Epigastric discomfort 11 0942483 R10.13 diet revision suggested, continue PPI for now Polyp of colon 79733116 K63.5 Fatigue 22634005 R53.83 Screening for malignant neoplasm of breast 730813683 Z12.39 Degenerati on of lumbar intervertebral disc 82481553 M51.36 followed at pain management [id number] Pepe Martinez MD [facility] [address] [facility] [address] [facility] [place] [address] 03/03/2022 10:08:43 03/03/2022 15:21:36 COVID-19 747165513 U07.1 We reviewed the SE's and the isolation recommenda tions. [id number] Radha aMtt Main Office [address] [facility] [address] [facility] [place] [place] [address] 11/02/2022 14:57:34 11/02/2022 15:57:14 Contact dermatitis caused by plants [id number] L25.5 Likely allergic dermatitis , otc products not working will try oral steroid as around eyes. She can also use thin layer of otc hydrocorti sone on the neck and fingers bid for no more than 7-10 days, avoid face. Call if not improving or has secondary infection. Prevention reviewed, side effects reviewed Major depr ession single episode, in partial remission [id number] F32.4 sees psychiatry for meds depression and sleep, depression stable at this time, steroid can sometimes cause agitation, pt aware [id number] Sweetie Knott MD Main Office [address] [facility] [address] [facility] [place] [address] 11/08/2022 09:45:29 11/08/2022 10:16:36 Contact dermatitis caused by plants [id number] L25.5 1. Remove the oil: If you come into contact with poison len, the first step is to wash your skin as soon as possible with soap and water to remove the urushiol oil. Also, wash any clothing or other items that may have the oil on them. 2. Cool compresses : Applying cool, wet compresses to the affected area can help soothe the skin and relieve itching, use Burow's Solution otc 3. Topical corticoste roids can also help reduce inflammati on. Avoid face, armpit, groin, neck. Do not use more than 2 weeks. 4. Oral antihistam simon: These can help reduce itching. ent but be mindful it can make you drowsy. Aware not to drive with meds. 5. Oral corticoste roids: sent 6. Avoid scratching : It's important not to scratch the affected areas, as this can lead to infection. If the rash is widespread or severe, if it involves the face or genitals, or if it leads to a large number of blisters or an infection, it's important to seek medical attention. Additional ly, difficulty breathing or swallowing after exposure to poison len can be signs of a severe allergic reaction then pls go to ED. [id number] Dany Mcwilliams PA-C [facility] [address] [facility] 207 [place] [address] 11/15/2022 12:48:34 11/15/2022 14:07:01 Contact dermatitis caused by urushiol from [place] poison len [id number] L25.5 will re-treat c slower pred taper [id number] Torsten Lambert MD Main Office [address] [facility] [address] [place] [address] 12/31/2022 11:07:49 12/31/2022 12:13:21 Swelling of ankle joint [id number] M25.471 Likely arthritic but with her HRT and lack of specifical ly identifiab le trauma/inj ury other etiologies should be considered . If d-dimer elevated will need u/s, if negative will refer to ortho or as guided by other test results. Use NSAID PRN in meantime. Advised to take with food and stay well hydrated. [id number] DANYA PEARL MD Main Office [address] [facility] [address] [place] [address] 03/24/2023 12:53:59 03/24/2023 13:27:19 Adult health examination [id number] Z00.00 Health Maintenanc e FemaleA) Patient was counseled on healthy diet, exercise and nutrition due to BMI of 31.6 B) ScreeningL ast Mammogram: start at age 50 stop at 74Date: 02/04/2022 Result: BIRADS-1Ne xt: 01/2023, DUE (wants to do every 2nd year) Last Pap smear: start at age 21 to age 65Date: Results : ???Next: will check Ob when last was Last Colonoscop y: start at age 45-75Date: 07/04/2022R esult: tubular adenoma, hemorrhoid s, diverticul osisNext: 5 years Last DEXA scan:Date: due at 65Result: ??? C) Vaccines:I nfluenza: 03/24/2023 TdAP: 06/12/2011 Zoster: refusedPCV 13: due at 23YYUH04: due at 81IHZ78:PC V15:COVID: 09/30/2020 , 10/27/2020 , 05/13/2021 D) Routine blood work orderedE) Updated patient's history RTC in one year for annual exam or sooner if any acute complaints Major depr ession single episode, in partial remission [id number] F32.4 - in good control- PHQ-9 score 9- sees psychiatry for meds depression and sleep, Dr Vargas> c/w bupropion XL 300mg> c/w escitalopr am 10mg QD> c/w lorazepam 1mg QD as needed Gastroesop hageal reflux disease [id number] K21.9 - following with GI- c/w lansoprazo le 60mg QD- had an EGD in 01/2019 Degenerati on of lumbar intervertebral disc 15429650 M51.36 - followed at pain management , given oxycodone 5mg BID as needed- pt is also on Soma 350mg PRN- will use ibuprofen intermitte ntly Fatigue 01952385 R53.83 Requires a tetanus booster [id number] Z28.39 Hepatitis C screening 43 2809098 Z11.59 Screening for malignant neoplasm of cervix 135071677 Z12.4 Persistent insomnia 1919 25103 G47.09 - pt is on both trazadone 200mg and zolpidem 5mg given by her psychiatri st- c/w clonidine 0.1mg as needed Needs infl uenza immunization 318232526 Z23 Body mass index 30+ - obesity 683739065 Z68.30 E66.9 - bmi of 31.6- Cut down on (limit) fast foods, sweets, and processed snack foods.- Limit alcohol intake to no more than 1- 2 drinks a day for men. One drink equals 12 oz of beer, 5 oz of wine, or 1 oz of hard liquor.- Keep a weight loss journal and keep track of the food and portions that you eat.- The exercise that you do- 4 times a week or 150 minutes cumulative of moderate exercise recommende d. Vaccine de clined by patient [id number] 02 Z28.21 [id number] Torsten Lambert MD Main Office [address] [facility] [address] [place] [address] 04/22/2023 09:57:45 04/22/2023 10:59:55 Hypertriglyceridemia 822914404 E78.1 Based on level <500 and low current CVD risk score TLC recommende d. Will recheck along with FBG in 6 months. Pt has started fish oil supplement . Impaired f asting glycemia 842775915 R73.01 Palpitations 37128992 R0 0.2 Symptoms not concerning , may be anxiety related. Will monitor for now and if persistent or associated with exertion pt advised to notify office hector. Se will investigat e [employer] mobile ashvin and utilize if recurrent. If more symptomati c would refer to cardiology . Health Concerns Section Related Observation LastModified by Organization Detai ls LastModified Time None Recorded Concern Status LastModified by Organization Details LastModified Time None Recorded Advance Directives Directive None Recorded Payers Encounter Date Sequence Insurance Name Policy Number Policy Zaidi Covered Member ID Zaidi Member ID Guarantor Name 11/08/2022 1 [facility] (POS) [id number] Karrie Torres [id number] Karrie Torres 11/15/2022 1 [facility] (POS) [id number] Karrie Torres [id number] Karrie Torres 12/31/2022 1 [facility] Karrie Torres [id number] Karrie Torres 03/24/2023 [facility] Karrie Torres [id number] Karrie Espinozadonato 04/22/2023 1 [facility] (POS) Karrie Gilmorebryon [id number] Karrie Torres Notes Date Note Type Note Provider Name and Address Organization Details Recorded Time 3 text/html Rash/Skin LesionReported bypatient.Location:neck, chin, face, groin, arms Quality:itchy;painful;multi ple Context:was cleaning touching shoes on Monday that contained oil from poison len which made rash reappear, rash was better with original steroids when she first came in for this 11/02/22. Associated Symptoms:no fever; no cold symptoms; no nausea; no vomiting; no diarrhea; no urinary symptoms; no chills; no fatigue; no change in weight Treatment History:prescription systemic treatment Steroid. with improvement Sweetie Knott MD [address], [address] [facility] [place] 11/08/2022 10:16:26 3 text/html Patient has had a third flare up of poison len. Rash in on inner thigh, upper thigh and hands -- initially better but now worse reviewed last ov note c CK on 11.08 - gave quick pred taper hydroxyzine helps a little Dany Mcwilliams PA-C [address] [address], [place], [address], [facility] [place] 11/15/2022 14:04:45 3 text/html Musculoskeletal PainReported bypatient.Location:right ankle Quality:aching;dull Severity:worsening Duration:present <1 month Timing:sudden Context:overuse; unusual activity Associated Symptoms:no fever; no weak limbs; no numbness of the legs/feet; on incontinenceNotes:History of severe sprain requiring casting 20+ yrs ago. 2 weeks ago developed ankle swelling/pain after rigorous gardening. Pain and swelling worsens as she is on her feet during the day. No recent surgery or prolonged immobilization. Is on HRT. Torsten Lambert MD [address] [address], [place], [address], [facility] [place] 12/31/2022 12:17:36 3 text/html Karrie Hardin is a 57 year old F who presented to the clinic for her annual exam. Pt denies any emergency room visits or hospitalizations. Is not using ASA.OTC/Herbal supplements use: none Gynecologic HistoryPatient's last menstrual period is currentlyMenstrual cycle varies in days, without spotting/clothsMenstrual cycle: becoming irregularSexually active: yesContraception: none+ abnormal paps pt cannot rememberDenies cysts, stds, fibroids Obstetric HistoryGravida: 1Para: 1AB: 0Livin (vaginal)Complications: none Drug use: marijuana, chewablesEtoh use: sociallytobacco use: neverspf/derm: Dental: every 6 monthsEye: does not seeDiet: hx of GERD, pay attention to what she eatsActivity: does nothing right now DANYA PEARL MD [address] [address], [place], [address], [facility] [place] 03/24/2023 13:42:13 3 text/html HyperlipidemiaReported bypatient.Type of hyperlipidemia:hypertriglyc eridemia Duration:new onset Prior Tests:highest cholesterol level:; highest triglyceride level: (278); lowest HDL level: (28) Control:not at goal Compliance:noncompliant;non compliant with diet;does not exercise Complications:no coronary artery disease; no peripheral artery disease; no cardiovascular disease Risk Factors:low HDL levelNotes:Had Elevated FBG of 118 as well on recent labs but nl A1C. Current CVD risk score in 2.9palpitationsReported bypatient.rapid or irregular heartbeat (palpitations)fast; lastin-15 minutes; occurring (night time)Notes:Intermittent issue over the past couple of weeks, seems to happen mostly at night, no link to exertion did have 1 AM episode, not associated with CP/dizziness/SOB. Has been nervous since she was told about her elevated TG's. Recent TFT's and electrolytes were normal. Torsten Lambert MD [address] [facility] [address], [place], [address], [facility] [place] 04/22/2023 12:16:59 OBGyn Episode No OBEpisode recorded.
== END 2024-07-10 16:49 | disposition home or self-care (01) ==
LOC: HO.HOP 14:56
PROVIDERS: PCP Student in an Organized Health Care Education/Training Program; Visit Provider Psychiatry & Neurology Psychiatry
DX: F41.1 Generalized anxiety disorder (principal); F43.10 Post-traumatic stress disorder, unspecified; F34.1 Dysthymic disorder
CPT/HCPCS: 90833; 99213

== ENCOUNTER → 2024-07-10 14:56 | Outpatient (BNVA) | payer OTHER, SELFPAY | PROVIDERS: PCP Student in an Organized Health Care Education/Training Program; Visit Provider Psychiatry & Neurology Psychiatry ==

== ENCOUNTER 2024-10-08 15:57 | Outpatient (REF) | payer OTHER, SELFPAY ==
[2024-10-08 17:59] LABS: Anion Gap 12 (12-20)
[2024-10-08 18:05] LABS: Alanine Aminotransferase 21 U/L (0-31); Albumin Level 4.2 g/dL (3.5-5.0); Alkaline Phosphatase 73 U/L (39-117); Aspartate Amino Transferase 24 U/L (5-31); Bilirubin Total 0.4 mg/dL (0.0-1.0); Blood Urea Nitrogen 19 mg/dL (9-16); Carbon Dioxide 26 mmol/L (22-29); Chloride 104 mmol/L (96-108); Estimated Glomerular Filt Rate > 60; Glucose Random 92 mg/dL (60-115); Potassium 4.2 mmol/L (3.3-5.1); Sodium 138 mmol/L (135-145); Total Protein 6.9 g/dL (6.5-8.0)
[2024-10-08 18:09] LABS: Calcium 9.1 mg/dL (8.4-10.2)
[2024-10-08 18:26] LABS: TSH reflex Free T4 1.27 uIU/mL (0.32-4.0)
[2024-10-08 18:34] LABS: Folate 7.2 ng/mL (> or = 4.0); Vitamin B12 1289 pg/mL (200-900)
== END 2024-10-08 15:58 | disposition home or self-care (01) ==
LOC: HO.LAB 15:57
PROVIDERS: PCP Student in an Organized Health Care Education/Training Program; Visit Provider Psychiatry & Neurology Psychiatry
DX: F41.1 Generalized anxiety disorder (principal); F32.4 Major depressive disorder, single episode, in partial remission; F43.10 Post-traumatic stress disorder, unspecified
CPT/HCPCS: 36415; 80053; 82607; 82746; 84443

== ENCOUNTER 2024-10-10 10:31 | Outpatient (AMB) | payer OTHER, SELFPAY ==
--- NOTE | 2024-10-10 10:44 | A.OFFPSYCH_ITS ---
Intake Intake Visit Reasons: depression Allergies oxycodone [OxyContin] Allergy (Unknown, Verified 05/22/14 00:00) itchiness From OXYCONTIN Allergy (Unknown, Uncoded 02/27/20 16:32) ITCHING Medication List - Last Reconciled 10/10/24 by Lebron Vargas MD bupropion HCl XL (Wellbutrin XL) 300 mg PO QAM clonidine HCl 0.1 mg PO BEDTIME PRN escitalopram oxalate 10 mg PO DAILY estradiol 1 patch topical 2XW lansoprazole 30 mg PO BID lorazepam 0.5 - 1 mg (0.5 - 1 x 1 mg) PO DAILY PRN 30 days progesterone micronized 100 mg PO DAILY trazodone 200 mg (2 x 100 mg) PO BEDTIME 3 months zolpidem 5 mg PO BEDTIME PRN HPI- Psychiatric Chief Complaint: depression HPI Narrative: Pt seen in f/u daughter has had surgery for thyroid cancer has c fiber neuropathy also endometriosis daughter leila has hx ocd depression her d is housebound also has pots brain fog patient tries to maintain her own stability tries to see some time for herself. Patient feels stressed and anxious at time generally doing okay patient continues on Wellbutrin medication for sleep including Ambien trazodone we have discussed long-term potential consequences of sleep medication Past Psychiatric History: The patient has a history of recurrent low level depression premenstrual mood dysphoria and anxiety has been seeing this writer editor for a number of years Mental Status Exam Mental Status Exam Narrative: Mental Status Exam Narrative: Appearance: Casually dressed Behavior: Cooperative appropriate psychomotor: Within normal limits Speech: Normal volume and prosody Thought proccess logical and goal-directed Thought content: Future oriented focused on relations with her daughter and medical issues Mood: stressed anxiety Affect: Appropriate to mood constricted SI:denies HI:denies VH/AH:none Delusions: None Insight/judgment: Good insight and judgment Memory/cog: Intact Assessment and Plan Assessment & Plan (1) Generalized anxiety disorder: Status: Acute Code(s): F41.1 - Generalized anxiety disorder (2) Major depressive disorder in partial remission: Status: Acute Code(s): F32.4 - Major depressive disorder, single episode, in partial remission Plan Although patient under chronic stress appears to be doing okay on current regimen citalopram Wellbutrin Ambien trazodone sleep. Daughter has chronic social anxiety PTSD just had cancer surgery and patient has been dealing with this as a chronic issue her daughter's not been able to go to school have been doing home schooling. She is under chronic stress having to also be an advocate at times for her daughter in the healthcare system she is also healthcare proxy for her mother with dementia PHQ-9 unremarkable Counseling and coordination of Care Details-Self Mgmt counseling: Issues related to dealing with chronic medical stress with her daughter and its impact Diagnosis and Prognosis Counseling: Adequacy of current interventions Details: I spent [33] minutes reviewing the record, seeing the patient and documenting in the medical record. Counseling provided to the patient/caregiver as outlined below. Addressed patient/caregiver concerns regarding current medication regime including effective adherence. Addressed patient/caregiver concerns regarding diagnosis and prognosis including accuracy of diagnosis, prognosis over time, impact of diagnosis. Addressed patient/caregiver concerns regarding impact of recent stressors. [facility] Medical History (Updated 07/10/24 @ 16:51 by Lebron Vargas MD) Post traumatic stress disorder (PTSD) Major depressive disorder in partial remission Asthma Generalized anxiety disorder Social History: The patient works for [employer] she is and has 1 daughter she is the healthcare proxy mother who has dementia and lives nearby in assisted living daughter has trauma hx Substance History: none Coding Level of Care Code Est Pt Level 4 (92572) Diagnoses Generalized anxiety disorder F41.1 Major depressive disorder in partial remission F32.4
--- OUTSIDE RECORDS SUMMARY | 2024-10-10 12:03 | XMS_ITS | Clinical Summary ---
Author Organization [facility] Address [address] [place] [address] Care Team Providers Care Chief Service Observer Name Role Phone Raven Colorado MD Primary Care Provider Encounters Date Type Department Care Team Description 10/09/2024 Telephone Gastroenterology - [address] [place] [address] Tierra Llamas MD MISSING INFORMATION from Last 3 Months Social History Tobacco Use Types Packs/Day Years Used Date Smoking Tobacco: Never Assessed Comments Unknown Sex and Gender Information Value Date Recorded Sex Assigned at Not on file Legal Sex Female 10:29 AM EDT Gender Identity Not on file Sexual Orientation Not on file Plan of Treatment Health Maintenance Due Date Last Done Comments Hepatitis B Vaccines (1 of 3 - 19+ 3-dose series) 10/14/1986 Pneumococcal Vaccine: 50+ Years (1 of 2 - PCV) 10/14/1986 Pneumococcal Vaccine: Pediatrics (0 to 5 Years) and At-Risk Patients (6 to 64 Years) (1 of 2 - PCV) 10/14/1986 Cervical Cancer Screening: Pap Smear 10/14/1988 Zoster Vaccines (1 of 2) 10/14/2017 DTaP,Tdap,and Td Vaccines (3 - Td or Tdap) 06/12/2021 06/12/2011, 06/12/2002 Breast Cancer Screening 02/05/2024 02/04/2022 COVID-19 Vaccine ( season) 2024 05/13/2021, 10/27/2020, 09/30/2020 Cholesterol Screening (Lipid Panel) 10/05/2024 Colorectal Cancer Screening: Colonoscopy 10/05/2024 Depression Screening 10/05/2024 HIV Screening 10/05/2024 Hepatitis C Screening 10/05/2024 Medicare Annual Wellness Visit 10/05/2024 Social Influencers of Health Screening 10/05/2024 Influenza Vaccine (Season Ended) 2025 03/24/2023, 03/13/2014, 04/25/2013, Additional history exists HIB Vaccines Aged Out No longer eligi ble based on patient's age to complete this topic HPV Vaccines Aged Out No longer eligi ble based on patient's age to complete this topic Hepatitis A Vaccines Aged Out No long er eligible based on patient's age to complete this topic IPV Vaccines Aged Out No longer eligi ble based on patient's age to complete this topic MMR Vaccines Aged Out No longer eligi ble based on patient's age to complete this topic Meningococcal ACWY Vaccine Aged Out N o longer eligible based on patient's age to complete this topic Meningococcal B Vaccine Aged Out No l onger eligible based on patient's age to complete this topic RSV Immunization Patients Under 20 months Aged Out No longer eligible based on patient's age to complete this topic Varicella Vaccines Aged Out No longer eligible based on patient's age to complete this topic Insurance UCARE MEDICARE Care Teams Chief Service Observer Relationship Specialty Start Date End Date Raven Colorado MD [address] [phone] PCP - General Internal Medicine 10/09/24
--- OUTSIDE RECORDS SUMMARY | 2024-10-10 12:03 | XMS_ITS | Encounter Summary ---
Author Organization [facility] Address [address] [place] [address] Care Team Providers Care Manager Activities Name Role Phone Danya Colorado MD Primary Care Provider Reason for Visit * Reason Onset Date Comments MISSING INFORMATION 10/09/2024 Encounter Details Date Type Department Care Team (Late st Contact Info) Description 10/09/2024 Telephone Gastroenterology - [address] [facility] [address] [place] [phone] Tierra Llamas MD [address] [facility] [address] [place] [address] MISSING INFORMATION Social History Tobacco Use Types Packs/Day Years Used Date Smoking Tobacco: Never Assessed Comments Unknown Sex and Gender Information Value Date Recorded Sex Assigned at Not on file Legal Sex Female 10:29 AM EDT Gender Identity Not on file Sexual Orientation Not on file documented as of this encounter Progress Notes * Idalmis Rodgers - 10/09/2024 12:12 PM EDT REFERRAL RECEIVED FROM DANYA COLORADO OFFICE FOR GASTRO-ESOPHAGEAL REFLUX DISEASE--MISSING INSURANCE REFERRAL--AMPARO FAXED TO PCP documented in this encounter Plan of Treatment Not on file documented as of this encounter Visit Diagnoses Not on filedocumented in this encounter Care Teams Manager Activities Relationship Specialty Start Date End Date Danya Colorado MD [address] [phone] PCP - General Internal Medicine 10/09/24 documented as of this encounter
--- OUTSIDE RECORDS SUMMARY | 2024-10-10 12:03 | XMS_ITS | Data Portability ---
Author Organization [facility], Main Office Address [address] [facility] [address] [place] [id number] Care Team Providers Care Cob Sawyer Name Role Phone [facility] TIERRA LLAMAS Visual Merchandising Director [phone] [place] Primary Care Provider [facility] Assembling Motor Builder [phone] Assessment Encounter Date Assessment Date Assessment LastModified by Organization Details LastModified Time 11/15/2022 11/15/2022 This service was provided using telemedicine. Patient consented to video & audio visit Patient was located in the [facility]. Provider was located in the office. No other persons participated in the telemedicine visit except for the patient unless otherwise indicated here. {{}} Total time of visit was 7 minutes. pmadden Not available 11/15/2022 14:00:37 Plan of Treatment Reminders Order Date Submit Date Provider Last Modified By Organization Details Last Modified Time Details Appointments None recorded. Lab CBC w/ auto diff 2024 025 [facility], [address], [facility], [place], [address], 12:06:50 CMP, serum or plasma 2024 025 [facility], [address], [address], [place], [address], 12:06:51 TSH, ultra-sen sitive, serum 2024 025 LAMAR [facility] (Centralized Electronic Ordering - All Locations), Patient Can Go To The Location Of Their Choice, [address] 5 12:06:53 lipid panel, serum 2024 025 LAMAR [facility] (Centralized Electronic Ordering - All Locations), Patient Can Go To The Location Of Their Choice, [address] 5 12:06:52 HbA1c (hemoglob in A1c), blood 2024 025 LAMAR [facility] (Centralized Electronic Ordering - All Locations), Patient Can Go To The Location Of Their Choice, [address] 5 12:06:53 Hepatitis C IgG Ab, qual, serum 2024 025 LAMAR [facility] (Centralized Electronic Ordering - All Locations), Patient Can Go To The Location Of Their Choice, [address] 5 12:06:52 HbA1c (hemoglob in A1c), blood 2022 024 [facility], [address], [address], [place], [address], 4 03:03:24 glucose, QN [mass/vol ume], serum or plasma 2022 024 [facility], [address], [address], [place], [address], 4 03:03:24 cholester ol, total, serum 2022 024 [facility], [address], [address], [place], [address], 4 03:03:24 HDL cholester ol, serum 2022 024 [facility], [address], [address], [place], [address], 4 03:03:24 LDL, serum 2022 024 [facility], [address], [address], [place], [address], 4 03:03:24 triglycer ides, serum 2022 024 [facility], [address], [address], [place], [address], 4 03:03:25 magnesium , serum or plasma 2022 024 [facility], [address], [address], [place], [address], 4 03:03:24 CBC w/ auto diff 2022 023 [facility], [address], [address], [place], [address], 3 17:37:51 TSH, serum or plasma 2022 023 [facility], [address], [address], [place], [address], 3 18:24:44 CMP, serum or plasma 2022 023 [facility], [address], [address], [place], [address], 3 18:23:26 hepatitis C virus Ab, serum 2022 023 [facility], [address], [address], [place], [address], 3 08:10:35 D-dimer, quant, plasma 2022 023 [facility], [address], [address], [place], [address], 3 15:35:11 uric acid, serum or plasma 2022 023 [facility], [address], [address], [place], [address], 3 17:16:35 unlisted lab - lyme disease antibody w/reflex west blot 2022 023 [facility], [address], [address], [place], [address], 3 11:12:25 Referral ENT surgery referral 2024 025 [facility], [address], [address], [place], [address], 5 10:25:47 gynecolog ist referral 2024 025 [email or web address] Not available 5 10:24:07 gastroent erologist referral 2024 025 [facility] Tierra Llamas MD, [address], [place], [address], 5 10:32:11 Procedures None recorded. Surgeries None recorded. Imaging MAMMO, screening , bilateral 2024 025 [email or web address] [facility], [address], [address], [place], [address], 5 13:56:46 electroca rdiogram 2022 023 alexander In-Office Order, Internal Use Only DO Not Attach Compendium DO Not Attach Compendium, Do Not Delete/merge, [address] 3 12:11:58 XR, ankle, 3 or more view - for eval of right lateral ankle pain 2022 023 LAMAR Not available 17:21:52 Medication Orders mometason e 0.1 % topical ointment 2024 025 LAMAR [id number], [address], [place], [address], 5 08:38:42 albuterol sulfate HFA 90 mcg/actua tion aerosol inhaler 2024 025 LAMAR [id number], [address] [place], [address], 5 08:48:10 carisopro dol 350 mg tablet 2022 023 [id number], [address] [place], [address], 5 08:44:09 ibuprofen 600 mg tablet 2022 023 [email or web address] [id number], [address] [place], [address], 3 12:14:07 prednison e 10 mg tablet 2022 023 [id number], [address] [place], [address], 3 11:40:18 Patient TargetsNo targets recorded. Patient Instructions Encounter Date Encounter Id Patient Instructions Last Modified By Organization Details Last Modified Time 11/15/2022 [id number] Follow up if no improvement or if symptoms worsen. [email or web address] Not available 11/15/2022 14:03:17 03/24/2023 [id number] well visit, wome n 50 to 65: care instructions Not available 03/24/2023 13:35:57 medical record request* [email or web address] Not available 03/27/2023 11:22:54 starting a weigh t loss plan: care instructions Not available 03/24/2023 13:41:01 04/22/2023 [id number] prediabetes: car e instructions alexander Not available 04/22/2023 10:56:46 triglyceride diet awfab Not availab le 04/22/2023 10:56:46 palpitations: ca re instructions alexander Not available 04/22/2023 12:11:58 10/04/2024 [id number] gastroesophageal reflux disease (GERD): care instructions Not available 10/04/2024 08:35:49 prediabetes: car e instructions Not available 10/04/2024 08:35:49 starting a weigh t loss plan: care instructions Not available 10/04/2024 08:35:49 Reason for Referral Visual Merchandising Director Referral for Gastroesophageal reflux disease [facility]: 10/04/2024 Assembling Motor Builder Referral for Sc reening for malignant neoplasm of cervix Referring Physician: Raven [place] [facility], Encounter Date: 10/04/2024 ENT Surgery Referral for Afshin al congestion Referring Physician: Raven [place] [facility], Encounter Date: 10/04/2024 Results Created Date Observation Date Name Description Value Unit Range Abnormal Flag Note LastModifiedBy Organization Detail LastModifiedTime 01/01/2012/31/2022 D-DIM ER D-dimer 0.33 mg/L_ feu (<1.01 [...] st proba bilit y. Not Available [facility] (Centralized Electronic Ordering - All Locations) Patient Can Go To The Location Of Their Choice, [id number] 12/31/2022 15:35:11 01/01/2012/31/2022 URIC ACID uric acid 5.7 mg/dL (1.6-7 .6) Not Available [facility] (Centralized Electronic Ordering - All Locations) Patient Can Go To The Location Of Their Choice, [id number] 12/31/2022 17:16:35 01/01/2001/03/2023 LYME AB W/REF FARZANEH lyme Ab w/reflex (neg) NEGAT MARITZA NO ANTIB NENITA TO BORRE LLIA BURGD ORFER I DETEC JANEEN. PATIE NTS IN EARLY STAGE S OF INFEC TION OR WHO WERE GIVEN EARLY ANTIB IOTIC TREAT MENT MAY NOT PRODU CE DETEC TABLE LEVEL S OF ANTIB NENITA. THESE PATIE NTS WOULD BENEF IT FROM JAKI GARCIA IN 2 TO 4 WEEKS . Allison garcia perfo rmed by the Bio[facility] Conecte Link BioPl ex 2200 multi plex flow immun oassa y syste m Not Available [facility] (Centralized Electronic Ordering - All Locations) Patient Can Go To The Location Of Their Choice, 01/03/2023 11:12:25 03/29/2003/29/2023 COMPL ETE CBC WITH DIFF WBC 6.0 K/mm3 (4.0-1 1.0) Not Available [facility] (Centralized Electronic Ordering - All Locations) Patient Can Go To The Location Of Their Choice, 03/29/2023 17:37:51 03/29/2003/29/2023 COMPL ETE CBC WITH DIFF RBC 4.84 M/mm3 (4.20- 5.40) Not Available [facility] (Centralized Electronic Ordering - All Locations) Patient Can Go To The Location Of Their Choice, 03/29/2023 17:37:51 03/29/2003/29/2023 COMPL ETE CBC WITH DIFF HGB 13.8 gm/dL (11.7- 15.5) Not Available [facility] (Centralized Electronic Ordering - All Locations) Patient Can Go To The Location Of Their Choice, 03/29/2023 17:37:51 03/29/2003/29/2023 COMPL ETE CBC WITH DIFF HCT 41.3 % (35.7- 45.8) Not Available [facility] (Centralized Electronic Ordering - All Locations) Patient Can Go To The Location Of Their Choice, 03/29/2023 17:37:51 03/29/2003/29/2023 COMPL ETE CBC WITH DIFF MCV 85.3 fL (80.0- 100.0) Not Available [facility] (Centralized Electronic Ordering - All Locations) Patient Can Go To The Location Of Their Choice, 03/29/2023 17:37:51 03/29/2003/29/2023 COMPL ETE CBC WITH DIFF MCH 28.5 pg (27.0- 34.0) Not Available [facility] (Centralized Electronic Ordering - All Locations) Patient Can Go To The Location Of Their Choice, 03/29/2023 17:37:51 03/29/2003/29/2023 COMPL ETE CBC WITH DIFF MCHC 33.4 g/dL (33.0- 37.0) Not Available [facility] (Centralized Electronic Ordering - All Locations) Patient Can Go To The Location Of Their Choice, 03/29/2023 17:37:51 03/29/2003/29/2023 COMPL ETE CBC WITH DIFF plt 173 K/mm3 (150-4 60) Not Available [facility] (Centralized Electronic Ordering - All Locations) Patient Can Go To The Location Of Their Choice, 03/29/2023 17:37:51 03/29/2003/29/2023 COMPL ETE CBC WITH DIFF RDW-SD 38.5 fL (<47.0 ) Not Available [facility] ([facility]ized Electronic Ordering - All Locations) Patient Can Go To The Location Of Their Choice, 03/29/2023 17:37:51 03/29/2003/29/2023 COMPL ETE CBC WITH DIFF MPV 10.3 fL (9.4-1 2.4) Not Available [facility] (Centralized Electronic Ordering - All Locations) Patient Can Go To The Location Of Their Choice, 03/29/2023 17:37:51 03/29/2003/29/2023 COMPL ETE CBC WITH DIFF automated NRBC 0.0 #/100 _WBC' s Not Available [facility] (Centralized Electronic Ordering - All Locations) Patient Can Go To The Location Of Their Choice, 03/29/2023 17:37:51 03/29/2003/29/2023 COMPL ETE CBC WITH DIFF abs. NRBC 0.0 K/mm3 Not Available [facility] (Centralized Electronic Ordering - All Locations) Patient Can Go To The Location Of Their Choice, 03/29/2023 17:37:51 03/29/2003/29/2023 COMPL ETE CBC WITH DIFF neut # 3.9 K/mm3 (1.3-7 .0) Not Available [facility] (Centralized [facility] Ordering - All Locations) Patient Can Go To The Location Of Their Choice, 03/29/2023 17:37:51 03/29/2003/29/2023 COMPL ETE CBC WITH DIFF lymph # 1.3 K/mm3 (0.8-3 .1) Not Available [facility] (Centralized Electronic Ordering - All Locations) Patient Can Go To The Location Of Their Choice, 03/29/2023 17:37:51 03/29/2003/29/2023 COMPL ETE CBC WITH DIFF mono# 0.5 K/mm3 (0.4-0 .9) Not Available [facility] (Centralized Electronic Ordering - All Locations) Patient Can Go To The Location Of Their Choice, 03/29/2023 17:37:51 03/29/2003/29/2023 COMPL ETE CBC WITH DIFF eo # 0.2 K/mm3 (0.0-0 .4) Not Available [facility] (Centralized Electronic Ordering - All Locations) Patient Can Go To The Location Of Their Choice, 03/29/2023 17:37:51 03/29/2003/29/2023 COMPL ETE CBC WITH DIFF baso # 0.0 K/mm3 (0.0-0 .1) Not Available [facility] (Centralized [facility] Ordering - All Locations) Patient Can Go To The Location Of Their Choice, 03/29/2023 17:37:51 03/29/2003/29/2023 COMPL ETE CBC WITH DIFF abs. imm gran 0.0 K/mm3 Not Available [facility] ([facility] Order[facility] - All Locations) Patient Can Go To The Location Of Their Choice, 03/29/2023 17:37:51 03/29/2003/29/2023 COMPL ETE CBC WITH DIFF neut 65.9 % (44-76 ) Not Available [facility] (Centralized [facility] Ordering - All Locations) Patient Can Go To The Location Of Their Choice, 03/29/2023 17:37:51 03/29/2003/29/2023 COMPL ETE CBC WITH DIFF lymph 21.0 % (15-43 ) Not Available [facility] (Centralized Electronic Ordering - All Locations) Patient Can Go To The Location Of Their Choice, 03/29/2023 17:37:51 03/29/2003/29/2023 COMPL ETE CBC WITH DIFF monocyte 8.4 % (4.5-1 0.5) Not Available [facility] (Centralized Electronic Ordering - All Locations) Patient Can Go To The Location Of Their Choice, 03/29/2023 17:37:51 03/29/2003/29/2023 COMPL ETE CBC WITH DIFF eo 3.9 % (0-6) Not Available [facility] (Centralized Electronic Ordering - All Locations) Patient Can Go To The Location Of Their Choice, 03/29/2023 17:37:51 03/29/2003/29/2023 COMPL ETE CBC WITH DIFF baso 0.5 % (0-2) Not Available [facility] (Centralized Electronic Ordering - All Locations) Patient Can Go To The Location Of Their Choice, 03/29/2023 17:37:51 03/29/2003/29/2023 COMPL ETE CBC WITH DIFF imm gran 0.3 % Not Available [facility] ([facility]ized Electronic Ordering - All Locations) Patient Can Go To The Location Of Their Choice, 03/29/2023 17:37:51 03/29/2003/29/2023 COMPR EHENS MARITZA METAB OLIC PANL glucose 118 mg/dL (70-99 ) high Fasti ng Not Available [facility] (Centralized Electronic Ordering - All Locations) Patient Can Go To The Location Of Their Choice, 03/29/2023 18:23:25 03/29/2003/29/2023 COMPR EHENS MARITZA METAB OLIC PANL BUN 11 mg/dL (6-20) Not Available [facility] ([facility] Ordering - All Locations) Patient Can Go To The Location Of Their Choice, 03/29/2023 18:23:25 03/29/2003/29/2023 COMPR EHENS MARITZA METAB OLIC PANL creatinine 1.0 mg/dL (0.5-1 .0) Not Available [facility] (Centralized Electronic Ordering - All Locations) Patient Can Go To The Location Of Their Choice, 03/29/2023 18:23:25 03/29/2003/29/2023 COMPR EHENS MARITZA METAB OLIC PANL sodium 137 mmol/ L (133-1 45) Not Available [facility] (Centralized Electronic Ordering - All Locations) Patient Can Go To The Location Of Their Choice, 03/29/2023 18:23:25 03/29/2003/29/2023 COMPR EHENS MARITZA METAB OLIC PANL potassium 4.7 mmol/ L (3.6-5 .2) Not Available [facility] (Centralized Electronic Ordering - All Locations) Patient Can Go To The Location Of Their Choice, 03/29/2023 18:23:25 03/29/2003/29/2023 COMPR EHENS MARITZA METAB OLIC PANL chloride 102 mmol/ L (98-10 7) Not Available [facility] ([facility]ized Electronic Ordering - All Locations) Patient Can Go To The Location Of Their Choice, 03/29/2023 18:23:25 03/29/2003/29/2023 COMPR EHENS MARITZA METAB OLIC PANL bicarbonate 26 mmol/ L (22-29 ) Not Available [facility] ([facility]ized Electronic Ordering - All Locations) Patient Can Go To The Location Of Their Choice, 03/29/2023 18:23:25 03/29/2003/29/2023 COMPR EHENS MARITZA METAB OLIC PANL anion gap 9 (4-17) Not Available [facility] (Centralized Electronic Ordering - All Locations) Patient Can Go To The Location Of Their Choice, 03/29/2023 18:23:25 03/29/2003/29/2023 COMPR EHENS MARITZA METAB OLIC PANL albumin 4.5 gm/dL (3.4-4 .8) Not Available [facility] ([facility]ized Electronic Ordering - All Locations) Patient Can Go To The Location Of Their Choice, 03/29/2023 18:23:25 03/29/2003/29/2023 COMPR EHENS MARITZA METAB OLIC PANL calcium 9.2 mg/dL (8.6-1 0.5) Not Available [facility] ([facility] Electronic Ordering - All Locations) Patient Can Go To The Location Of Their Choice, 03/29/2023 18:23:25 03/29/2003/29/2023 COMPR EHENS MARITZA METAB OLIC PANL bilirubin,to gideon 0.4 mg/dL (0-1.2 ) Not Available [facility] ([facility] Ordering - All Locations) Patient Can Go To The Location Of Their Choice, [id number] 03/29/2023 18:23:25 03/29/2003/29/2023 COMPR EHENS MARITZA METAB OLIC PANL total protein 6.5 gm/dL (6.2-8 .2) Not Available [facility] ([facility]ized Electronic Ordering - All Locations) Patient Can Go To The Location Of Their Choice, [id number] 03/29/2023 18:23:25 03/29/2003/29/2023 COMPR EHENS MARITZA METAB OLIC PANL Ag ratio 2.3 Not Available [facility] (Centralized Electronic Ordering - All Locations) Patient Can Go To The Location Of Their Choice, 03/29/2023 18:23:25 03/29/2003/29/2023 COMPR EHENS MARITZA METAB OLIC PANL AST 18 U/L (0-32) Not Available [facility] ([facility] Ordering - All Locations) Patient Can Go To The Location Of Their Choice, 03/29/2023 18:23:25 03/29/2003/29/2023 COMPR EHENS MARITZA METAB OLIC PANL alk phos 57 U/L (35-10 4) Not Available [facility] ([facility] Ordering - All Locations) Patient Can Go To The Location Of Their Choice, 03/29/2023 18:23:25 03/29/2003/29/2023 COMPR EHENS MARITZA METAB OLIC PANL ALT 24 U/L (0-33) Not Available [facility] ([facility] Ordering - All Locations) Patient Can Go To The Location Of Their Choice, [id number] 03/29/2023 18:23:25 03/29/2003/29/2023 COMPR EHENS MARITZA METAB OLIC PANL estimated GFR creatinine 67 mL/mi n/1.7 3_M2 Creat inine based estim ated glome rular filtr ation (eGFR ) in adult s is calcu lated using the Natio nal Kidne y Found ation recom candi d 2020 CKD-E PI equat ion. Estim ates GFR from serum creat inine , age and sex. Not Available [facility] ([facility] Ordering - All Locations) Patient Can Go To The Location Of Their Choice, 03/29/2023 18:23:25 03/29/2003/29/2023 TSH WITH REFLE X TO FT4 TSH 0.89 uIU/m L (0.4-4 .2) Not Available [facility] ([facility] Order[facility] - All Locations) Patient Can Go To The Location Of Their Choice, [id number] 03/29/2023 18:24:44 03/29/2003/30/2023 LIPID PANEL cholesterol, total 167 mg/dL (<200) Not Available [facility] ([facility] All Locations) Patient Can Go To The Location Of Their Choice, [id number] 03/30/2023 08:58:04 03/29/2003/30/2023 LIPID PANEL triglyceride 278 mg/dL (<150) high Fasti ng Not Available [facility] ([facility] Ordering - All Locations) Patient Can Go To The Location Of Their Choice, [id number] 03/30/2023 08:58:04 03/29/2003/30/2023 LIPID PANEL HDL chol 28 mg/dL (>39) low Not Available [facility] ([facility] Order[facility] - All Locations) Patient Can Go To The Location Of Their Choice, [id number] 03/30/2023 08:58:04 03/29/2003/30/2023 LIPID PANEL LDL cholesterol, calculated 83 mg/dL (0-130 ) Not Available [facility] ([facility] Order[facility] - All Locations) Patient Can Go To The Location Of Their Choice, [id number] 03/30/2023 08:58:04 03/29/2003/30/2023 LIPID PANEL non HDL cholesterol (calc) 139 mg/dL (<160) Not Available [facility] ([facility] - All Locations) Patient Can Go To The Location Of Their Choice, [id number] 03/30/2023 08:58:04 03/29/2003/30/2023 HEMOG LOBIN A1C hemoglobin A1C 5.6 % (4.0-5 .6) MONIT ORING : In known diabe tic patie nts, hemog lobin A1c targe ts noris d be discu ssed with healt h [...] of Clini isi and Appli ed Resea rc and Educa tion Volum e 43, Suppl ement 1 Not Available [facility] ([facility] Ordering - All Locations) Patient Can Go To The Location Of Their Choice, 03/30/2023 10:50:51 03/29/20 23 03/31/2023 ANTI- HEPAT [...] Test perfo rmed by [facility], [address], [place] [address] Not Available [facility] ([facility] Ordering - All Locations) Patient Can Go To The Location Of Their Choice, [id number] 03/31/2023 08:10:35 10/05/19 25 10/05/2024 CBC WITH DIFFE RENTI AL/PL ATELE T WBC 5.8 x10e3 /uL 3.4-10 .8 normal Not Available [facility] ([facility]) [address], [place], [address], 10/05/2024 12:06:50 10/05/19 25 10/05/2024 CBC WITH DIFFE RENTI AL/PL ATELE T RBC 4.64 x10e6 /uL 3.77-5 .28 normal Not Available [facility] ([facility]) [address] [place], [address], 10/05/2024 12:06:50 10/05/1910/05/2024 CBC WITH DIFFE RENTI AL/PL ATELE T hemoglobin 13.8 g/dL 11.1-1 5.9 normal Not Available [facility] ([facility]) [address] [place], [address], 10/05/2024 12:06:50 10/05/1910/05/2024 CBC WITH DIFFE RENTI AL/PL ATELE T hematocrit 41.9 % 34.0-4 6.6 normal Not Available [facility] ([facility]) [address] [place], [address], 10/05/2024 12:06:50 10/05/19 25 10/05/2024 CBC WITH DIFFE RENTI AL/PL ATELE T MCV 90 fL 79-97 normal Not Available [facility] ([facility]) [address] [place], [address], 10/05/2024 12:06:50 10/05/19 25 10/05/2024 CBC WITH DIFFE RENTI AL/PL ATELE T MCH 29.7 pg 26.6-3 3.0 normal Not Available [facility] ([facility]) [address] [place], [address], 10/05/2024 12:06:50 10/05/19 25 10/05/2024 CBC WITH DIFFE RENTI AL/PL ATELE T MCHC 32.9 g/dL 31.5-3 5.7 normal Not Available [facility] ([facility]) [address] [place], [address], 10/05/2024 12:06:50 10/05/19 25 10/05/2024 CBC WITH DIFFE RENTI AL/PL ATELE T RDW 13.1 % 11.7-1 5.4 Not Available [facility] ([facility]) [address] [facility], [place], [address], 10/05/2024 12:06:50 10/05/19 25 10/05/2024 CBC WITH DIFFE RENTI AL/PL ATELE T platelets 158 x10e3 /uL 150-45 0 normal Not Available [facility] ([facility]) [address] [facility], [place], [address], 10/05/2024 12:06:50 10/05/19 25 10/05/2024 CBC WITH DIFFE RENTI AL/PL ATELE T neutrophils 65 % not estab. normal Not Available [facility] ([facility]) [address] [facility], [place], [address], 10/05/2024 12:06:50 10/05/19 25 10/05/2024 CBC WITH DIFFE RENTI AL/PL ATELE T lymphs 19 % not estab. normal Not Available [facility] ([facility]) [address] [facility], [place], [address], 10/05/2024 12:06:50 10/05/19 25 10/05/2024 CBC WITH DIFFE RENTI AL/PL ATELE T monocytes 10 % not estab. normal Not Available [facility] ([facility]) [address] [facility], [place], [address], 10/05/2024 12:06:50 10/05/19 25 10/05/2024 CBC WITH DIFFE RENTI AL/PL ATELE T eos 4 % not estab. normal Not Available [facility] ([facility]) [address] [place], [address], 10/05/2024 12:06:50 04/25/10/05/2024 CBC WITH DIFFE RENTI AL/PL ATELE T basos 1 % not estab. normal Not Available [facility] ([facility]) [address] [place], [address], 10/05/2024 12:06:50 10/05/19 25 10/05/2024 CBC WITH DIFFE RENTI AL/PL ATELE T immature cells SKIN WASHER Not Available [facility] ([facility]) [address] [place], [address], 10/05/2024 12:06:50 10/05/1910/05/2024 CBC WITH DIFFE RENTI AL/PL ATELE T neutrophils (absolute) 3.9 x10e3 /uL 1.4-7. 0 normal Not Available [facility] ([facility]) [address] [place], [address], 10/05/2024 12:06:50 10/05/19 25 10/05/2024 CBC WITH DIFFE RENTI AL/PL ATELE T lymphs (absolute) 1.1 x10e3 /uL 0.7-3. 1 normal Not Available [facility] ([facility]) [address] [place], [address], 10/05/2024 12:06:50 10/05/19 25 10/05/2024 CBC WITH DIFFE RENTI AL/PL ATELE T monocytes(ab solute) 0.6 x10e3 /uL 0.1-0. 9 normal Not Available [facility] ([facility]) [address] [place], [address], 10/05/2024 12:06:50 10/05/1910/05/2024 CBC WITH DIFFE RENTI AL/PL ATELE T eos (absolute) 0.2 x10e3 /uL 0.0-0. 4 normal Not Available [facility] ([facility]) [address] [place], [address], 10/05/2024 12:06:50 10/05/19 25 10/05/2024 CBC WITH DIFFE RENTI AL/PL ATELE T baso (absolute) 0.0 x10e3 /uL 0.0-0. 2 normal Not Available [facility] ([facility]) [address] [facility], [place], [address], 10/05/2024 12:06:50 10/05/19 25 10/05/2024 CBC WITH DIFFE RENTI AL/PL ATELE T immature granulocytes 1 % not estab. Not Available [facility] ([facility]) [address] [facility], [place], [address], 10/05/2024 12:06:50 10/05/19 25 10/05/2024 CBC WITH DIFFE RENTI AL/PL ATELE T immature grans (abs) 0.0 x10e3 /uL 0.0-0. 1 Not Available [facility] ([facility]) [address] [facility], [place], [address], 10/05/2024 12:06:50 10/05/19 25 10/05/2024 CBC WITH DIFFE RENTI AL/PL ATELE T NRBC SKIN WASHER Not Available [facility] ([facility]) [address] [facility], [place], [address], 10/05/2024 12:06:50 10/05/19 25 10/05/2024 CBC WITH DIFFE RENTI AL/PL ATELE T hematology comments: SKIN WASHER Not Available [facility] ([facility]) [address] [facility], [place], [address], 10/05/2024 12:06:50 10/05/19 25 10/04/2024 COMP. METAB OLIC PANEL (14) calcium 9.0 mg/dL 8.7-10 .2 normal Not Available [facility] ([facility]) [address] [place], [address], 10/05/2024 12:06:51 10/05/19 25 10/05/2024 COMP. METAB OLIC PANEL (14) glucose 155 mg/dL 70-99 above high normal Not Available [facility] ([facility]) [address] [place], [address], 10/05/2024 12:06:51 10/05/19 25 10/05/2024 COMP. METAB OLIC PANEL (14) BUN 11 mg/dL 6-24 normal Not Available [facility] ([facility]) [address] [place], [address], 10/05/2024 12:06:51 10/05/19 25 10/05/2024 COMP. METAB OLIC PANEL (14) creatinine 0.92 mg/dL 0.57-1 .00 normal Not Available [facility] ([facility]) [address] [place], [address], 10/05/2024 12:06:51 10/05/19 25 10/05/2024 COMP. METAB OLIC PANEL (14) eGFR 73 mL/mi n/1.7 3 >59 normal Not Available [facility] ([facility]) [address] [place], [address], 10/05/2024 12:06:51 10/05/19 25 10/05/2024 COMP. METAB OLIC PANEL (14) BUN/creatini ne ratio 12 9-23 normal Not Available [facility] ([facility]) [address] [place], [address], 10/05/2024 12:06:51 10/05/19 25 10/05/2024 COMP. METAB OLIC PANEL (14) sodium 138 mmol/ L 134-14 4 normal Not Available [facility] ([facility]) [address] [place], [address], 10/05/2024 12:06:51 10/05/19 25 10/05/2024 COMP. METAB OLIC PANEL (14) potassium 3.7 mmol/ L 3.5-5. 2 normal Not Available [facility] ([facility]) [address] [place], [address], 10/05/2024 12:06:51 10/05/19 25 10/05/2024 COMP. METAB OLIC PANEL (14) chloride 101 mmol/ L 96-106 normal Not Available [facility] ([facility]) [address] [place], [address], 10/05/2024 12:06:51 10/05/19 25 10/05/2024 COMP. METAB OLIC PANEL (14) carbon dioxide, total 22 mmol/ L 20-29 normal Not Available [facility] ([facility]) [address] [place], [address], 10/05/2024 12:06:51 10/05/19 25 10/05/2024 COMP. METAB OLIC PANEL (14) protein, total 6.4 g/dL 6.0-8. 5 normal Not Available [facility] ([facility]) [address] [place], [address], 10/05/2024 12:06:51 10/05/19 25 10/05/2024 COMP. METAB OLIC PANEL (14) albumin 4.4 g/dL 3.8-4. 9 normal Not Available [facility] ([facility]) [address] [place], [address], 10/05/2024 12:06:51 10/05/19 25 10/05/2024 COMP. METAB OLIC PANEL (14) globulin, total 2.0 g/dL 1.5-4. 5 Not Available [facility] ([facility]) [address] [place], [address], 10/05/2024 12:06:51 10/05/19 25 10/05/2024 COMP. METAB OLIC PANEL (14) bilirubin, total 0.4 mg/dL 0.0-1. 2 normal Not Available [facility] ([facility]) [address] [place], [address], 10/05/2024 12:06:51 10/05/19 25 10/05/2024 COMP. METAB OLIC PANEL (14) alkaline phosphatase 71 IU/L 44-121 normal Not Available [facility] ([facility]) [address] [place], [address], 10/05/2024 12:06:51 10/05/19 25 10/05/2024 COMP. METAB OLIC PANEL (14) AST (SGOT) 19 IU/L 0-40 normal Not Available [facility] ([facility]) [address] [place], [address], 10/05/2024 12:06:51 10/05/19 25 10/05/2024 COMP. METAB OLIC PANEL (14) ALT (SGPT) 17 IU/L 0-32 normal Not Available [facility] ([facility]) [address] [place], [address], 10/05/2024 12:06:51 10/05/19 25 10/05/2024 LIPID PANEL cholesterol, total 158 mg/dL 100-19 9 normal Not Available [facility] ([facility]) [address] [place], [address], 10/05/2024 12:06:52 10/05/19 25 10/05/2024 LIPID PANEL triglyceride s 214 mg/dL 0-149 above high normal Not Available [facility] ([facility]) [address] [place], [address], 10/05/2024 12:06:52 10/05/19 25 10/05/2024 LIPID PANEL HDL cholesterol 31 mg/dL >39 below low normal Not Available [facility] ([facility]) [address] [place], [address], 10/05/2024 12:06:52 10/05/19 10/05/2024 LIPID PANEL VLDL cholesterol isi 37 mg/dL 5-40 Not Available [facility] ([facility]) [address] [place], [address], 10/05/2024 12:06:52 10/05/1910/05/2024 LIPID PANEL LDL chol calc ([facility]) 90 mg/dL 0-99 Not Available [facility] ([facility]) [address] [place], [address], 10/05/2024 12:06:52 10/05/1910/05/2024 LIPID PANEL LDL calc comment: SKIN WASHER Not Available [facility] ([facility]) [address] [facility], [place], [address], 10/05/2024 12:06:52 10/05/1910/05/2024 HCV ANTIB NENITA RFX TO QUANT PCR HCV Ab Non Reacti ve non reacti ve Not Available [facility] ([facility]) [address] [facility], [place], [address], 10/05/2024 12:06:52 10/05/1910/05/2024 HCV ANTIB NENITA RFX TO QUANT PCR interpretati on: Commen t Not infec janeen with HCV unles s early or acute infec tion is suspe cted (whic h may be delay ed in an immun ocomp romis ed indiv idual ), or other evide nce exist s to indic ate HCV infec tion. Not Available [facility] ([facility]) [address] [facility], [place], [address], 10/05/2024 12:06:52 10/05/1910/05/2024 HEMOG LOBIN A1C hemoglobin A1C 5.3 % 4.8-5. 6 normal Predi abete s: 5.7 - 6.4 Diabe damaso: >6.4 Glyce erasmo contr ol for adult s with diabe damaso: <7.0 Not Available [facility] ([facility]) [address] [place], [address], 10/05/2024 12:06:52 10/05/19 25 10/05/2024 TSH RFX ON ABNOR MAL TO FREE T4 TSH 2.210 uIU/m L 0.450- 4.500 normal Not Available [facility] ([facility]) [address], [place], [address], 10/05/2024 12:06:53 01/05/20 23 01/04/2023 XR, ankle , 3 [...] s. IMPRES TERESO: No fractu re. WSN: [id number] Orderi ng Physic oma: Torsten Harris Dictat ed By: Abigail arriaga MD, River Restrepo Dictat ed Date/T luis angel: 5:18 pm Review ed By: Abigail arriaga MD, River Restrepo Signed By: River Washington MD Signed Date/T luis angel: 5:18 pm Transc ribed By: KAYLA Transc ribed Date/T luis angel: 5:16 pm Patien t Class: Outpat ient [facility] (Outpt Imaging) [address] [place], [address], 01/05/2023 16:44:36 04/22/2004/22/2023 elect aissatou torres am No observ ation record ed. alexander In-Office Order Internal Use Only DO Not Attach Compendium DO Not Attach Compendium, Do Not Delete/merge, [id number] 04/22/2023 12:17:12 04/22/20 dinh torres am No observ ation record ed. LAMAR In-Office Order Internal Use Only DO Not Attach Compendium DO Not Attach Compendium, Do Not Delete/merge, [id number] 04/27/2023 11:56:49 Result Notes None recorded. Problems Name Problem SNOMED Code Status Onset Date Resolution Date Notes Provider Name and Address Organization Details Recorded Time Abdomina l pain 26082598 Completed 201112/31/2013 IMPRESSI ON: PAIN, BLOATING AND [...] 12 10:54AM BY MONICA IVEY ON/HARDIK Castro, [facility] [address] [address], [place], [address] , [facility] 6 10:49:28 Generali zed abdomina l pain [id number] Completed 201112/31/2013 RECORDED 01/23/20 12 11:01AM BY SARA ROWLAND MA, MONICA ON/HARDIK Castro, [facility] [address] [facility] [address] [facility], [place], [address] , [facility] 6 10:49:28 Acute maxillar y sinusiti s [id number] Completed 200612/31/2013 RESOLVED DATE: 01/14/20 07; RECORDED 01/14/20 07 10:19AM BY PEPE BROWN MD, ANNOTATI ON/HARDIK Castro, [facility] [address] [facility] [address] [facility], [place], [address] , [facility] 6 10:49:27 Acute pharyngi tis [id number] Completed 200812/31/2013 IMPRESSI ON: ULCERATI ONS ON OROPHARY NX, LOOK VIRAL RELATED, SALT WATER GARGLES; RECORDED 08/19/19 09 2:22PM BY YOLETTE LORD, ANNOTATI ON/ADDEN DUM Alfred Castro, [facility] [address] [facility] [address], [place], [address] , [facility] 6 10:49:27 Acute sinusiti s [id number] Completed 201112/31/2013 RECORDED 01/18/20 12 10:53AM BY VENTURA IVEYATI ON/ADDEN DUM Erimarlin marshenzo null, [facility] 7 15:50:52 Acute sinusiti s [id number] Completed 201212/09/2016 IMPRESSI ON: PT CALLED SXS WORSE FROM LAST WEEK; RECORDED 04/25/20 13 3:05PM BY ANAY ELKINS, OFFICE VISIT Eri foy, [facility] 7 15:50:52 Allergic rhinitis 45299337 Completed 201112/31/2013 IMPRESSI ON: WILL ADD DUE TO POORLY CONTROLL ED ALLERGIE S; RECORDED 01/18/20 12 10:54AM BY ANAY ELKINS, MONICA ON/ADDEN DUM Alfred Castro, [facility] [address] [facility] [address], [place], [address] , [facility] 6 10:49:27 Patient status finding [id number] Completed 201212/31/2013 RECORDED 10/03/19 13 11:17AM BY TITO RÍOS MA, VENTURAATI ON/ADDEN DUM Erimarlin rios null, [facility] 7 15:50:49 Screenin g for malignan t neoplasm of breast Completed 201112/31/2013 RECORDED 01/23/20 12 11:01AM BY SARA ROWLAND MA, ANNOTATI ON/ADDEN DUM Alfred Castro, [facility] [address] [facility] [address], [place], [address] , [facility] 6 10:49:28 Screenin g for malignan t neoplasm of cervix Completed 201212/09/2016 RECORDED 04/25/20 13 3:04PM BY ANAY ELKINS, OFFICE VISIT Eri foy [facility] 7 15:50:54 Conjunct ivitis [id number] Completed 201112/31/2013 RECORDED 01/18/20 12 10:53AM BY ANAY ELKINS, ANNOTATI ON/ADDEN DUM Eri Rajni foy [facility] 7 15:51:45 Cough [id number] Completed 201212/09/2016 IMPRESSI ON: HAS REACTIVE AIRWAYS THAT HAVE RESPONDE D IN PAST TO ADVAIR. WILL UP TO 500. SHE THINKS POSTNASA L DRIP PLAYS A BIG PART TOO. ADD SUDAFED. CONTINUE FLONASE AND NETI-POT ; RECORDED 04/25/20 13 3:05PM BY ANAY ELKINS, OFFICE VISIT Eri foy [facility] 7 15:51:16 Degenera tion of lumbar interver tebral disc 03846026 Active 2012 RECORDED 04/25/20 13 3:04PM BY ANAY ELKINS, OFFICE VISIT Not Available [facility] 2 13:23:03 Depressi ve disorder 43530170 Completed 201210/23/2018 RECORDED 04/25/20 13 3:05PM BY ANAY ELKINS, OFFICE VISIT Eri foy [facility] 9 14:08:53 Gastroes ophageal reflux disease 455938693 Active 2012 IMPRESSI ON: STABLE ON MEDS, KEEP MEALS LIGHT; RECORDED 04/25/20 13 3:04PM BY ANAY ELKINS, OFFICE VISIT Not Available [facility] 2 13:23:03 Malaise and fatigue 580867704 Completed 201212/09/2016 IMPRESSI ON: CHECK LABS HX OF GESTATIO NAL DM; RECORDED 04/25/20 13 3:37PM BY ERI Santillan MD, OFFICE VISIT Eri foy [facility] 7 15:51:01 Female orlin antonio [id number] Completed 201112/31/2013 RECORDED 01/18/20 12 10:53AM BY MONICA IVEY ON/ADDEN DUM Alfred Castro, [facility] [address] [facility] [address], [place], [address] , [facility] 6 10:49:27 Influenz a vaccine needed [id number] 06 Completed 201212/31/2013 RECORDED 04/25/20 13 3:14PM BY ANAY ELKINS, OFFICE VISIT Alfred Castro, [facility] [address] [facility] [address], [place], [address] , [facility] 6 10:49:28 Adult health examinat ion Completed 201212/09/2016 IMPRESSI ON: PT IS OVERDUE FOR PAPA ND MAMMOGRA M, I URGED HER TO GET HER MAMMOGRA M EVERY YEAR, SHE WILL ARRANGE, WILL GET COLONOSC OY AT AGE 52, IS ADOPTED, NO SYMPOTMS .; RECORDED 04/25/20 13 3:36PM BY ERI Santillan MD, OFFICE VISIT Eri foy [facility] 7 15:50:58 Adult health examinat ion Completed 201112/31/2013 IMPRESSI ON: PAP AND MAMMO UTD, WILL INCREASE EXERCISE ; RECORDED 01/23/20 12 11:01AM BY SARA ROWLAND MA, MONICA ON/ADDEN DUM Eri foy, [facility] 7 15:50:58 General examinat ion of patient Completed 200812/31/2013 IMPRESSI ON: PAP UTD, HAS NOT HAD MAMMO, WILL DISCUSS WITH AIR DIRECTOR, COLONOSC OPY AT AGE 52, PT IS ADOPTED AND NO KNOWN FAMILY HX, START TO EXERCISE . CHECK LAST TETANUS AT FOLLOW UP; RECORDED 08/19/19 09 2:22PM BY MONICA BURNS ON/ADDNATY Castro, [facility] [address] [facility] [address], [place], [address] , [facility] 6 10:49:28 Blood in urine [id number] Completed 200812/31/2013 RECORDED 08/19/19 09 2:22PM BY MONICA BURNS ON/ADDNATY Castro, [facility] [address] [facility] [address], [place], [address] , [facility] 6 10:49:27 Pure hypercho lesterol emia [id number] Completed 201210/23/2018 IMPRESSI ON: CEHCK NONFASTI NG TO GET BASELINE ; RECORDED 04/25/20 13 3:05PM BY ANAY ELKINS, OFFICE VISIT Eri foy [facility] 9 14:09:00 Internal hemorrho ids [id number] Completed 201212/09/2016 RECORDED 04/25/20 13 3:05PM BY ANAY ELKINS, OFFICE VISIT Eri foy [facility] 7 15:51:42 Laborato ry procedur e performe d [id number] Completed 201212/31/2013 RECORDED 08/23/19 13 9:42AM BY DEMARCO GARCIA MA, MONICA ON/HARDIK Castro, [facility] [address] [facility] [address], [place], [address] , [facility] 6 10:49:28 Leukopen ia [id number] Completed 201210/23/2018 RECORDED 04/25/20 13 3:05PM BY ANAY ELKINS, OFFICE VISIT Eri foy [facility] 9 14:08:57 Low back pain [id number] Completed 201212/09/2016 IMPRESSI ON: TREATED BY PAIN MANAGEME NT, ON PRN PAIN MEDS, ENCOUR ED CORE AND EXERCISE WORK; RECORDED 04/25/20 13 3:37PM BY ERI Santillan MD, OFFICE VISIT Eri foy [facility] 7 15:51:05 Lumbar sprain 684120918 Completed 201112/31/2013 RECORDED 01/18/20 12 10:53AM BY ANAY ELKINS, VENTURAATI ON/ADDEN DUM Alfred Castro, [facility] [address] [facility] [address], [place], [address] , [facility] 6 10:49:28 Malaise and fatigue [id number] Completed 201112/31/2013 IMPRESSI ON: MOOD STABLE ON MEDS; RECORDED 01/23/20 12 11:01AM BY SARA ROWLAND MA, MONICA ON/ADDEN DUM Eri foy, [facility] 7 15:51:01 Patient status finding [id number] Completed 201212/09/2016 RECORDED 04/25/20 13 3:14PM BY ANAY ELKINS, OFFICE VISIT Eri foy [facility] 7 15:50:49 Infectiv e otitis externa 31191679 Completed 200812/31/2013 RECORDED 08/19/19 09 2:24PM BY TITO RÍOS MA, MONICA ON/ADDEN DUM Alfred Castro, [facility] [address] [facility] [address], [place], [address] , [facility] [place] 6 10:49:27 Contact dermatit is due to plants, except food Completed 201212/09/2016 RECORDED 04/25/20 13 3:05PM BY ANAY ELKINS, OFFICE VISIT Eri foy, [facility] 7 15:51:28 Eruption [id number] Completed 200812/31/2013 IMPRESSI ON: PERIANAL , TRUIAL OF STEROID, THEN ANTIFUNG AL AND THEN TREAT HEMORRHO IDS,; RECORDED 11/14/19 09 1:44PM BY TITO RÍOS MA, VENTURAATI ON/ADDEN DUM Eri foy, [facility] 7 15:51:03 Knee pain Completed 201212/31/2013 IMPRESSI ON: S/P INJURY 9 DAYS AGO, NO INSTABIL ITY ON EXAM, HAS UPCOMING NEOS APPT 09/04([facility] [place]).; RECORDED 10/03/19 13 11:17AM BY TITO RÍOS MA, MONICA ON/ADDEN DUM Eri foy, [facility] 7 15:51:10 Chronic sinusiti s [id number] Completed 201112/31/2013 RECORDED 01/23/20 12 11:01AM BY SARA ROWLAND MA, VENTURAATI ON/ADDEN DUM Alfred Castro, [facility] [address] [facility] [address], [place], [address] , [facility] 6 10:49:27 Disorder of skin and/or subcutan eous tissue [id number] Completed 201112/31/2013 IMPRESSI ON: 2 SMALL SKIN TAGS OVER EYES, SKIN GETS DRY AND THEY CAN GET IRRITATE D.REFER TO PLASTIC SURGERY FOR EVAL ABOUT REMOVAL; RECORDED 01/23/20 12 11:01AM BY SARA ROWLAND MA, VENTURAATI ON/ADDEN DUM Alfred Castro, [facility] [address] [facility] [address], [place], [address] , [facility] 6 10:49:28 Thromboc ytopenic disorder [id number] Completed 201112/31/2013 RECORDED 01/23/20 12 11:01AM BY SARA ROWLAND MA, ANNOTATI ON/ADDEN LEMUEL Castro, [facility] [address] [facility] [address], [place], [address] , [facility] 6 10:49:27 Acute upper respirat ory infectio n [id number] Completed 201212/09/2016 IMPRESSI ON: VIRAL; RECORDED 04/25/20 13 3:04PM BY ANAY ELKINS, OFFICE VISIT Eri foy, [facility] 7 15:51:23 Vaginiti s and vulvovag initis Completed 201112/31/2013 IMPRESSI ON: GETS YEAST INFECTIO N ON ANTIBIOT ICS; RECORDED 01/18/20 12 10:54AM BY MONICA IVEY ON/ADDNATY Castro, [facility] [address] [facility] [address], [place], [address] , [facility] 6 10:49:27 Candidal vulvovag initis 72434108 Completed 201212/09/2016 RECORDED 05/29/20 13 4:14PM BY A[facility]Y ELKINS, [facility] 15:51:33 Candidal vulvovag initis 99911216 Completed 201212/31/2013 RECORDED 08/23/19 13 9:42AM BY DEMARCO GARCIA MA, ANNOTATI ON/ADDEN DUM Eri foy, [facility] 7 15:51:33 Abdomina l pain 23186780 Completed 201101/20/2014 IMPRESSI ON: PAIN, BLOATING AND [...] RECORDED 01/18/20 12 10:54AM BY MONICA IVEY ON/ADDNATY Castro, [facility] [address], [place], [address] , [facility] 6 10:49:28 Generali zed abdomina l pain [id number] Completed 201101/20/2014 RECORDED 01/23/20 12 11:01AM BY SARA ROWLAND MA, MONICA ON/HARDIK Castro, [facility] [address] [facility] [address], [place], [address] , [facility] 6 10:49:28 Acute maxillar y sinusiti s 24901664 Completed 200601/20/2014 RESOLVED DATE: 01/14/20 07; RECORDED 01/14/20 07 10:19AM BY PEPE BROWN MD, MONICA ON/ADDNATY Castro, [facility] [address] [facility] [address], [place], [address] , [facility] 6 10:49:27 Acute pharyngi tis [id number] Completed 200801/20/2014 IMPRESSI ON: ULCERATI ONS ON OROPHARY NX, LOOK VIRAL RELATED, SALT WATER GARGLES; RECORDED 08/19/19 09 2:22PM BY YOLETTE LORD, MONICA ON/ADDNATY Castro, [facility] [address] [facility] [address], [place], [address] , [facility] 6 10:49:27 Acute sinusiti s 60699913 Completed 201101/20/2014 RECORDED 01/18/20 12 10:53AM BY MONICA IVEY ON/HARDIK foy, [facility] 7 15:50:52 Allergic rhinitis 75931938 Completed 201101/20/2014 IMPRESSI ON: WILL ADD DUE TO POORLY CONTROLL ED ALLERGIE S; RECORDED 01/18/20 12 10:54AM BY ANAY ELKINS, MONICA ON/ADDEN DUM Alfred Castro, [facility] [address] [facility] [address], [place], [address] , [facility] 6 10:49:27 Patient status finding [id number] Completed 201201/20/2014 RECORDED 10/03/19 13 11:17AM BY TITO RÍOS MA, VENTURAATI ON/ADDEN DUM Eri foy, [facility] 7 15:50:49 Screenin g for malignan t neoplasm of breast Completed 201101/20/2014 RECORDED 01/23/20 12 11:01AM BY SARA ROWLAND MA, MONICA ON/ADDEN DUM Alfred Castro, [facility] [address] [facility] [address], [place], [address] , [facility] 6 10:49:28 Conjunct ivitis 5324846 Completed 201101/20/2014 RECORDED 01/18/20 12 10:53AM BY MONICA IVEY ON/ADDEN DUM Eri foy, [facility] 7 15:51:45 Conjunct ivitis [id number] Completed 201312/09/2016 RECORDED 12/11/19 14 2:58PM BY LAKIA MCKEON RN-BC, NURSE TRIAGE Eri foy, [facility] 7 15:51:45 Female infertil ity 7114830 Completed 201101/20/2014 RECORDED 01/18/20 12 10:53AM BY MONICA IVEY ON/ADDEN DUM Alfred Castro, [facility] [address], [place], [address] , [facility] 6 10:49:27 Influenz a vaccine needed [id number] 06 Completed 201201/20/2014 RECORDED 04/25/20 13 3:14PM BY ANAY ELKINS, OFFICE VISIT Alfred Castro, [facility] [address] [facility] [address], [place], [address] , [facility] 6 10:49:28 General examinat ion of patient Completed 200801/20/2014 IMPRESSI ON: PAP UTD, HAS NOT HAD MAMMO, WILL DISCUSS WITH AIR DIRECTOR, COLONOSC OPY AT AGE 52, PT IS ADOPTED AND NO KNOWN FAMILY HX, START TO EXERCISE . CHECK LAST TETANUS AT FOLLOW UP; RECORDED 08/19/19 09 2:22PM BY MONICA BURNS ON/HARDIK Castro, [facility] [address] [address], [place], [address] , [facility] 6 10:49:28 Blood in urine [id number] Completed 200801/20/2014 RECORDED 08/19/19 09 2:22PM BY MONICA BURNS ON/HARDIK Castro, [facility] [address] [address], [place], [address] , [facility] 6 10:49:27 Laborato ry procedur e performe d [id number] Completed 201201/20/2014 RECORDED 08/23/19 13 9:42AM BY DEMARCO GARCIA MA, MONICA ON/HARDIK Castro, [facility] [address] [facility] [address], [place], [address] , [facility] 6 10:49:28 Lumbar sprain 321244817 Completed 201101/20/2014 RECORDED 01/18/20 12 10:53AM BY ANAY ELKINS, MONICA ON/ADDEN DUM Alfred Castro, [facility] [address] [facility] [address], [place], [address] , [facility] 6 10:49:28 Infectiv e otitis externa 07619511 Completed 200801/20/2014 RECORDED 08/19/19 09 2:24PM BY TITO RÍOS MA, ANNOTATI ON/ADDEN DUM Alfred Castro, [facility] [address] [facility] [address], [place], [address] , [facility] 6 10:49:27 Eruption [id number] Completed 200801/20/2014 IMPRESSI ON: PERIANAL , TRUIAL OF STEROID, THEN ANTIFUNG AL AND THEN TREAT HEMORRHO IDS,; RECORDED 11/14/19 09 1:44PM BY TITO RÍOS MA, MONICA ON/ADDEN DUM Eri foy, [facility] 7 15:51:03 Knee pain Completed 201201/20/2014 IMPRESSI ON: S/P INJURY 9 DAYS AGO, NO INSTABIL ITY ON EXAM, HAS UPCOMING NEOS APPT 09/04([facility] [place]).; RECORDED 10/03/19 13 11:17AM BY TITO RÍOS MA, MONICA ON/ADDEN DUM Eri foy, [facility] 7 15:51:10 Chronic sinusiti s 09503083 Completed 201101/20/2014 RECORDED 01/23/20 12 11:01AM BY SARA ROWLAND MA, MONICA ON/HARDIK Castro, [facility] [address] [facility] [address], [place], [address] , [facility] 6 10:49:27 Disorder of skin and/or subcutan eous tissue [id number] Completed 201101/20/2014 IMPRESSI ON: 2 SMALL SKIN TAGS OVER EYES, SKIN GETS DRY AND THEY CAN GET IRRITATE D.REFER TO PLASTIC SURGERY FOR EVAL ABOUT REMOVAL; RECORDED 01/23/20 12 11:01AM BY SARA ROWLAND MA, MONICA ON/ADDNATY Castro, [facility] [address] [facility] [address], [place], [address] , [facility] 6 10:49:28 Thromboc ytopenic disorder [id number] Completed 201101/20/2014 RECORDED 01/23/20 12 11:01AM BY SARA ROWLAND MA, VENTURAATI ON/HARDIK Castro, [facility] [address] [facility] [address], [place], [address] , [facility] 6 10:49:27 Vaginiti s and vulvovag initis Completed 201101/20/2014 IMPRESSI ON: GETS YEAST INFECTIO N ON ANTIBIOT ICS; RECORDED 01/18/20 12 10:54AM BY MONICA IVEY ON/HARDIK Castro, [facility] [address] [facility] [address], [place], [address] , [facility] 6 10:49:27 Eruption [id number] Completed 12/09/2016 Eri GladingAngie foy [facility] 7 15:51:03 Anemia [id number] Completed 10/23/2018 Eri GladingAngie marshenzo law [facility] 9 14:09:03 Knee pain Completed 12/09/2016 Eri GlaJason foy [facility] 7 15:51:10 Dysuria [id number] Completed 12/09/2016 EriLamont foy [facility] 7 15:51:13 Hemorrho ids [id number] Completed 12/09/2016 Eri Glading-Di blanca null, [facility] 7 15:51:30 Cervical radiculo maldonado [id number] Completed 12/09/2016 Eri Glading-Di blanca null, [facility] 7 15:51:25 Hand pain [id number] Completed 12/09/2016 Eri Glading-Di blanca null, [facility] 7 15:51:20 Vaginiti s [id number] Completed 12/09/2016 [facility] Glading-Di blanca null, [facility] 7 15:51:08 Rectal pain 47388118 Completed 12/09/2016 [facility] Glading-Di blanca null, [facility] 7 15:51:39 Major depressi on single episode, in partial remissio n 46410858 Active 2018 Not Available [facility] 2 13:23:03 Dysplasi a of colon 194965695 Completed 201803/24/2023 precance jimbo colon polyps, colonosc opy every 3 years RAVEN COLORADO MD [address] [address], [place], [address] , [facility] 3 07:40:24 Swollen ankle region 051677907 Active 2022 Torsten Lambert MD [address] [address], [place], [address] , [facility] 3 20:52:43 Hypertri glycerid emia 692466358 Active 2022 RAVEN COLORADO MD [address] [address], [place], [address] , [facility] 3 14:10:56 Impaired fasting glycemia 796839240 Active 2022 Torsten Lambert MD [address] [address], [place], [address] , [facility] 3 10:53:53 Herpes simplex type 1 infectio n 534556678 Active 2023 Catherine Pineda LPN null, [facility] 4 16:26:34 Persiste nt insomnia 238616996 Active 2024 RAVEN COLORADO MD [address], [facility] [place], [address] , [facility] 5 07:45:17 Problem Notes None recorded. Procedures Surgical History Date Name Laterality Status Provider Name and Address Organization Details Recorded Time 07/04 Colonoscopy completed Monica Lay [facility] 3 14:35:37 02/04 Most Recent Mammogram completed Apurva Moses [facility] 2 11:40:13 02/04 Mammogram both breasts completed Apurva Moses [facility] 2 11:40:01 06/23 Eye Surgery completed Anay Elkins MA [facility] 1 10:43:04 01/22 Date of Last Colonoscopy completed Luh García [facility] 9 16:13:01 01/22 esophagogastroduodenoscopy completed Keisha Lemus [facility] 9 16:13:45 06/12 Date of Last Pap Smear completed Anay Elkins MA [facility] 9 09:10:59 06/12 Cholecystectomy completed Anay Elkins MA [facility] 1 10:43:04 06/12 Back Surgery completed Anay Elkins MA [facility] 1 10:43:04 Cholecystectomy completed Anay Elkins MA [facility] 1 10:43:04 Back Surgery completed Anay Elkins MA [facility] 1 10:43:04 Imaging Results Imaging Date Name Status LastModified by Organization Details LastModified Time 01/04/2023 XR, ankle, 3 or more view completed [facility] (Out[facility] Imaging) [address] [place], [address], 01/05/2023 16:44:36 04/22/2023 electrocardiogram completed [email or web address] In-Offi ce Order Internal Use Only DO Not Attach Compendium DO Not Attach Compendium, Do Not Delete/merge, [id number] 04/22/2023 12:17:12 04/22/2023 electrocardiogram completed LAMAR In-Offi ce Order Internal Use Only DO Not Attach Compendium DO Not Attach Compendium, Do Not Delete/merge, [id number] 04/27/2023 11:56:49 Procedure Notes None recorded. Medical Equipment None Reported. Allergies Allergen ID Allergen Name Allergen Category Reaction Reaction Severity Criticality Documentation Date Start Date Code Code System Note Provider Name and Address Organization Details Recorded Time 04899 topiramat e medicatio n other severe Not available 10/23/2018 69297 RxNorm cause d depre ssion YOLETTE Ivey [facility] 9 09:18:06 89134 Oxycontin medicatio n Not available Not available Not available 10/04/2024 69637 6 RxNorm YOLETTE Webb [facility] 5 08:23:57 9031 acetamino phen / hydrocodo ne medicatio n Not available Not available Not available 12/24/20132007 33902 2 RxNorm COMME NT: RECOR DED 02/21 4:10P M BY YOLETTE COOK, OFFIC E VISIT ; Not Available [facility] 4 13:26:00 Medications Name Sig Start Date [...] HCl 0.1 mg tablet TAKE 1 TABLET BY MOUTH AT BEDTIME NEEDED FOR INSOMNIA active Not Available Not Available [...] 11/19 completed RECORDED 11/22/19 13 2:10PM BY GNI THAYER, MEDICATI ON AUTO-VANDANA CTIVATIO N; Not Available Not Available Not Available Zithromax Z-Leo 250 mg tablet DIRECTED 11/22 completed RECORDED 12/01/19 10 1:21PM BY GIN BENEDICT, MEDICATI ON AUTO-VANDNAA CTIVATIO N;TWO TABS DAILY ON DAY 1, THEN ONE TAB DAILY ON DAYS 2-5. Not Available Not Available Not Available clindamyc in HCl 150 mg capsule 11/23 completed Not Available Not Available Not Available Wellbutri n SR 150 mg tablet, 12 hr sustained -release QD 08/30 completed RECORDED 08/31/19 07 1:50PM BY YOLETTE LORD MEDICATI ON AUTO-VANDANA CTIVATIO N;THIS ORDER DISCONTI NUED PER MEDI-SPA N. Not [...] TAKE 2 TABLETS BY MOUTH AT BEDTIME FOR 3 MONTHS active Not Available Not Available No t [...] completed RECORDED 01/25/20 12 11:11AM BY AMINATA ROMANO, ANNOTATI ON/HARDIK DUM; Not Available Not Available Not Available mometason e 0.1 % topical ointment APPLY A THIN LAYER TO THE AFFECTED AREA(S) BY TOPICAL ROUTE ONCE DAILY 2024 active Not Available Not Available Not Avai lable zolpidem 5 mg tablet TAKE 1 TABLET BY MOUTH EVERY DAY AT BEDTIME NEEDED FOR SLEEP active Not Available Not Available No t Available gabapenti n 100 mg capsule Take 2 capsules 3 times a day by oral route for 30 days. active Not Available Not Available No t Available clobetaso l 0.05 % topical ointment Apply by topical route as needed for 15 days. 10/04 completed Not Available Not Available Not Available lorazepam 1 mg tablet Take 1 [...] Not Available Not Available Not Available albuterol sulfate HFA 90 mcg/actua tion aerosol inhaler Inhale 2 puffs every 4-6 hours by inhalati on route as needed. 2024 active Not Available Not Available Not Avai lable hydroxyzi ne HCl 10 mg tablet TAKE 1 TABLET BY MOUTH EVERY 8 HOURS NEEDED FOR 3 DAYS 12/31 completed Not Available Not Available Not Available fluticaso ne propionat e 50 mcg/actua tion nasal spray,tomasz pension [place] 2 sprays every day by intranas al [...] hr tablet, extended release TAKE 1 TABLET IN THE MORNING active Not Available Not Available No t Available bupropion HCl XL 150 mg 24 hr tablet, extended release QD 10/04 completed Not Available Not Available Not Available escitalop [...] 04/25/20 11 10:13AM BY AMINATA ROMANO, ANNOTATI ON/HARDIK HDEZ;THIS ORDER DISCONTI NUED PER [facility] N. Not Available Not Available Not Available GaviLyte- G 236 gram-22.7 4 gram-6.74 gram-5.86 gram oral solution TAKE 8 OUNCE BY MOUTH DIRECTED 11/02 completed Not Available Not Available Not Available Probiotic daily active Not Available Not Mikayla ilable Not Available Mediplast [place]-Call us-Wart Remover 40 % topical patch Apply [...] Not Available Vitals Date Recorded Body height Provider Name an d Address Organization Details Last Updated DateTime 11/15/2022 167.64 cm Mendy Cook MA [facility] 11/15/2022 13:42:42 Date Recorded Body height Body mass index (BMI) Body weight Heart rate Oxygen saturation Oxygen saturation in Arterial blood by Pulse oximetry Body temperature Systolic blood pressure Diastolic blood pressure Provider Name and Address Organization Details Last Updated DateTime 3 167.64 cm 31.9 kg/m2 33771.8 g 116 /min 97 % 97 % 97.7 [degF] 129 mm[Hg] 87 mm[Hg] Karrie Hassan MA [facility] 3 11:41:15 Date Recorded Body height Body mass index (BMI) Body weight Oxygen saturation Oxygen saturation in Arterial blood by Pulse oximetry Heart rate Body temperature Systolic blood pressure Diastolic blood pressure Provider Name and Address Organization Details Last Updated DateTime 3 167.64 cm 31.6 kg/m2 37762.1 g 99 % 99 % 92 /min 97.6 [degF] 126 mm[Hg] 80 mm[Hg] Anay Elkins MA [facility] 3 13:00:55 Date Recorded Body height Body mass index (BMI) Body weight Heart rate Oxygen saturation Oxygen saturation in Arterial blood by Pulse oximetry Body temperature Systolic blood pressure Diastolic blood pressure Provider Name and Address Organization Details Last Updated DateTime 3 167.64 cm 30.8 kg/m2 87649.1 4 g 86 /min 98 % 98 % 98 [degF] 123 mm[Hg] 83 mm[Hg] Pao Bernal MA [facility] 3 10:05:10 Date Recorded Body height Body mass index (BMI) Body weight Heart rate Oxygen saturation Oxygen saturation in Arterial blood by Pulse oximetry Body temperature Systolic blood pressure Diastolic blood pressure Provider Name and Address Organization Details Last Updated DateTime 5 167.64 cm 30.2 kg/m2 62245.7 7 g 99 /min 99 % 99 % 97.5 [degF] 145 mm[Hg] 85 mm[Hg] Pao Bernal MA [facility] 5 08:21:49 Date Recorded Systolic blood pressure Diastolic blood pressure Provider Name and Address Organization Details Last Updated DateTime 10/04/2024 124 mm[Hg] 80 mm[Hg] RAVEN COLORADO MD [address], [address] 10/04/2024 08:40:20 Social History Question Answer Notes LastModified by Organizat ion Details LastModified Time Tobacco Smoking Status Never Smoker YOLETTE Ivey, [facility] 03/12/2014 14:26:17 What Is Your Level Of Alcohol Consumption? Occasional [email or web address] Information not available 03/12/2014 Is Blood Transfusion Acceptable In An Emergency? Yes [email or web address] Information not available 11/15/2019 What Is Your Level Of Caffeine Consumption? Occasional 1 Cup Coffee Daily Information not available 01/26/2022 How Much Tobacco Do You Chew? None [email or web address] Information not available 12/04/2020 Are You Currently Employed? Yes [email or web address] Information not available 03/12/2014 What Type Of Diet Are You Following? REGULAR Information not available 01/26/2022 Which Illicit Or Recreational Drugs Have You Used? No [email or web address] Information not available 12/04/2020 Do You Or Have You Ever Used E-cigarettes Or Vape? 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 With Others Information not available 03/03/2022 Do You Take Precautions To Prevent Distracted Driving? Yes [email or web address] Information not available 11/15/2019 How Often Do You Need To Have Someone Help You When You Read Instructions, Pamphlets, Or Other Written Material From Your Doctor Or Pharmacy? Never [email or web address] Information not available 11/15/2019 Have You Served In The ? No [email or web address] Information not available 11/15/2019 Have You Or [...] 06/10/2020 Have You Recently Traveled To A COVID-19 High Risk Area Or Gathering In The Last 10 Days? No [email or web address] Information not available 12/04/2020 What Was The Date Of Your Most Recent Tobacco Screening? 10/04/2024 [email or web address] Information not available 10/04/2024 How Many Children Do You Have? 1 Information not available 11/15/2019 Do You Use Protection During Sex? No Information not available 01/26/2022 Do You Use Your Seat Belt Or Car Seat Routinely? Yes Information not available 01/26/2022 Seat Belts Used Routinely Yes Information not available 03/03/2022 Are You Sexually Active? No [email or web address] Information not available 12/04/2020 Smoke Alarm In Home Yes Information not available 03/03/2022 Do You Have Smoke And Carbon Monoxide Detectors In Your Home? Yes Information not available 01/26/2022 Are You Passively Exposed To Smoke? No [email or web address] Information not available 12/04/2020 Do You Or Have You Ever Used Smokeless Tobacco? Never Used Smokeless Tobacco [email or web address] Information not available 11/15/2019 General Stress Level High Information not available 03/24/2023 Do You Use Any Illicit Or Recreational Drugs? No Information not available 03/03/2022 Do You Use Sunscreen Routinely? Yes [email or web address] Information not available 03/12/2014 Do You Or Have You Ever Used Any Other Forms Of Tobacco Or Nicotine? No Information not available 03/03/2022 Sex: Unknown Functional Status Question Answer Note LastModified by Organizat ion Details LastModified Time Are you able to walk? YESWOREST walking 4-5 times per week Information not available 03/03/2022 Are you able to care for yourself? Yes [email or web address] Information not available 03/12/2014 What is your exercise level? Occasional [email or web address] Information not available 12/04/2020 Mental Status None recorded. Family History Relationship Description Onset Age of this Age Resolved Age Notes LastModified by Organization Details LastModified Time Maternal Grandmother Diabetes mellitus [email or web address] Not available 10:35:01 Notes:Pt is adopted limited knowledge of FH Medical History Condition Response Depression Y Anxiety Disorder Y Muscle, Joint, or Bone Problems Y Vision or Eye Problems Y Acid Reflux (GERD) Y GI Problems Y Skin Problems Y Asthma Y Allergies Y Gynecological History Statement/Question Response Date of Last Pap Smear 06/12/2016 Date of Last Colonoscopy 01/22/2019 Most Recent Mammogram 02/04/2022 Obstetrics History GPAL:G 0 P 0 0 0 0 Immunizations Vaccine Type Date Status Note Provider Name and Address Organization Details Recorded Time COVID-19, mRNA, LNP-S, PF, 100 mcg/0.5mL dose or 50 mcg/0.25mL dose 10/01/19 21 completed Not Available [facility] 03/31/2022 13:23:03 Influenza, split virus, trivalent, PF 06/29/19 13 completed Not Available [facility] 03/31/2022 13:23:03 COVID-19, mRNA, LNP-S, PF, 100 mcg/0.5mL dose or 50 mcg/0.25mL dose 05/13/20 21 completed Not Available [facility] 03/31/2022 13:23:03 COVID-19, mRNA, LNP-S, PF, 100 mcg/0.5mL dose or 50 mcg/0.25mL dose 10/28/19 21 completed Not Available [facility] 03/31/2022 13:23:03 Influenza, split virus, trivalent, PF 03/13/20 14 completed Not Available [facility] 06/29/2019 02:21:57 Influenza, split virus, quadrivalent, PF 03/24/20 23 completed RAVEN COLORADO MD [address] [address], [place], [address], [facility] 03/24/2023 13:35:32 zoster recombinant 03/24/20 23 cancelled patient objection RAVEN COLORADO MD [address] [facility] [address], [place], [address], [facility] 03/24/2023 13:41:28 Influenza, split virus, trivalent, preservative 03/10/20 09 completed Not Available [facility] 03/31/2022 13:23:03 Influenza, split virus, trivalent, preservative 03/10/20 11 completed Not Available [facility] 03/31/2022 13:23:03 Tdap 06/12/19 03 completed Not Available [facility] 03/31/2022 13:23:03 influenza, seasonal, intradermal, preservative free 04/25/20 13 completed Not Available [facility] 03/31/2022 13:23:03 Tdap 06/12/19 12 completed Not Available [facility] 03/31/2022 13:23:03 Past Encounters Encounter ID Performer Location Encounter Start Date Encounter Closed Date Diagnosis/Indication Diagnosis SNOMED-CT Code Diagnosis ICD10 Code Diagnosis Note [id number] [facility] er[facility] [address] [facility] [address] [place] [address] 08/30/2006 00:00:00 [id number] [address] [place] [address] 01/13/2007 00:00:00 [id number] [facility] [address] [address] [place] [address] 03/14/2007 00:00:00 [id number] autoEComm erce [address] [facility] [address] [place] [address] 05/19/2007 00:00:00 [id number] autoEComm erce [address] [facility] [address] [place] [address] 05/23/2007 00:00:00 [id number] auto[facility]Comm erce [address] [facility] [address] [place] [address] 05/30/2007 00:00:00 [id number] autoEComm erce [address] [facility] [place] [address] 02/22/2008 00:00:00 [id number] auto[facility]Comm erce [address] [facility] [place] [address] 08/18/2008 00:00:00 [id number] autoEComm erce [address] [facility] [place] [address] 09/04/2008 00:00:00 [id number] autoEComm erce [address] [facility] [place] [address] 11/13/2008 00:00:00 [id number] autoEComm erce [address] [facility] [place] [address] 12/04/2008 00:00:00 [id number] autoEComm erce [address] [facility] [place] [address] 01/16/2009 00:00:00 [id number] autoEComm erce [address] [facility] [place] [address] 02/06/2009 00:00:00 [id number] autoEComm erce [address] [facility] [address] [place] [address] 06/10/2009 00:00:00 [id number] autoEComm erce [address] [place] [address] 08/27/2009 00:00:00 [id number] auto[facility]Comm erce [address] [place] [address] 09/07/2009 00:00:00 [id number] autoEComm erce [address] [place] [address] 11/17/2009 00:00:00 [id number] autoEComm erce [address] [facility] [address] [place] [address] 08/09/2010 00:00:00 [id number] autoEComm erce [address] [facility] [address] [place] [address] 09/10/2010 00:00:00 [id number] autoEComm erce [address] [facility] [address] [place] [address] 02/03/2011 00:00:00 [id number] autoEComm erce [address] [facility] [address] [place] [address] 03/10/2011 00:00:00 [id number] autoEComm erce [address] [facility] [address] [place] [address] 07/19/2011 00:00:00 [id number] autoEComm erce [address] [facility] [address] [place] [address] 01/18/2012 00:00:00 [id number] autoEComm erce [address] [facility] [address] [place] [address] 08/22/2012 00:00:00 [id number] autoEComm erce [address] [facility] [address] [place] [address] 10/02/2012 00:00:00 [id number] autoEComm erce [address] [facility] [address] [place] [address] 11/06/2012 00:00:00 [id number] [facility]ce [address] [facility] [address] [address] [place] [address] 04/25/2013 00:00:00 [id number] Eri rios MD Main Office [address] [facility] [address] [place] [address] 03/12/2014 14:11:44 03/12/2014 15:12:39 Needs influenza immunization 948883754 Eruption 872248302 pt to see derm if not improved with hydrating lotion, aveeno baths, steroid cream for perirectal area that gets eczema Anemia 436131588 check l abs [id number] [facility] Est[facility] Main Office [address] [facility] [address] [place] [address] 05/06/2014 08:39:07 05/06/2014 09:15:00 Knee pain 67592372 Recommend NSAIDs, ice, rest. Discontinu e muscle relaxer and gabapentin . [id number] Eri rios MD Main Office [address] [facility] [address] [place] [address] 08/20/2014 10:25:17 08/20/2014 10:59:11 Cervical radiculopathy 65857493 new to pt, most likely due to funny sleeping position, pt to take gabapentin 300-600 at night and 100mg bid in day, makes her foggy int he day, take motrin, heat and muscle relaxer, was told not o have chiropract ic manipulati ons now, give it 2 weeks to calm down, xray if worsens or chiropract or needs it. Gastroesop hageal reflux disease 155602196 on meds that help, sleeps in recliner due to GERD [id number] Unique bragg MD Main Office [address] [facility] [address] [place] [address] 06/15/2015 15:04:31 06/15/2015 15:53:17 Hand pain 54441896 M79.641 [id number] GRADY Brooks Main Office [address] [facility] [address] [place] [address] 08/06/2015 10:31:48 08/06/2015 10:57:28 Acute sinusitis 10101515 J01.90 Symptomati c treatment- lots of fluids, rest, tea with honey, OTC cough drops/ cough med as needed, humidifier , nasal sinus rinses as needed. Augmentin BID x 10 days. Vaginitis 25637172 N76.0 [id number] Nelda Mcwilliams PA-C Main Office [address] [facility] [address] [place] [address] 10/28/2015 10:22:46 10/28/2015 11:41:40 Hemorrhoids 84986845 K64.8 Inflamed hemorrhoid s. Start Anusol suppositor ies internally and Lidocaine- hydrocorti sone rectal kit. Ashvin with the proctologi st if no sign improvemen ts by next week. Rectal pain 36290365 K62 .89 [id number] Eri rios MD Main Office [address] [facility] [address] [facility] [place] [address] 03/10/2016 14:08:46 03/10/2016 14:42:40 Contact dermatitis caused by urushiol from poison sumac 96296478 L25.5 treat as below due to hx of severe reaction to sumac [id number] Nelda Mcwilliams PA-C Main Office [address] [facility] [address] [place] [address] 11/23/2016 13:34:25 11/23/2016 14:18:11 Acute sinusitis 41678039 J01.90 Pt. is advised to start Abs as directed , Fluticason e to continue and call office if no improvemen t from medication . 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 100-50 BID. Acute laryngitis 5516765 J04.0 [id number] Torsten Lambert MD Main Office [address] [facility] [address] [place] [address] 12/10/2016 09:55:04 12/10/2016 10:56:50 Pain of joint of ankle and/or foot 706474037 M25.579 Given duration of pain will image to rule out fracture/s evere arthritic changes. Refer to ortho for further management recommenda tions. Plantar wa rt of left foot 7926296410 0651974 B07.0 INB/worse to home/OTC therapy call for referral to podiatry. [id number] Eri rios MD Main Office [address] [facility] [address] [place] [address] 05/03/2017 13:05:42 05/03/2017 13:53:14 Adult health examination 973134853 Z00.00 pt to set up mammogram, increase exercise Hypercholesterolemia 136 00507 E78.2 check fasting Eruption 128827896 R21 pt to see derm for several reasons including wart on finger, rash Hand wart 543149599 B07. 8 Allergy to food 83033200 1 Z91.018 pt to see logistics director, [id number] Torsten Lambert MD Main Office [address] [address] [place] [address] 09/15/2017 14:50:01 09/15/2017 15:39:09 Pain in upper limb 876943543 M79.601 M79.602 ? overuse injury vs tendinitis vs CTS. Brace and NSAID advised while waiting for ortho eval. Given multiple joint/pain issues will screen for vit D deficiency . 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 will discuss with psychiatry Chronic low back pain 27 6408463 M54.5 sees PSS[facility] [id number] Jarred Sullivan MD Main Office [address] [facility] [address] [place] [address] 02/27/2019 13:27:45 02/27/2019 13:44:19 Angular cheilitis 756617766 K13.0 Recom to start using antifungal cream and blistex BID. [id number] Eri rios MD Main Office [address] [facility] [address] [facility] [place] [address] 11/15/2019 10:15:57 11/15/2019 11:49:16 Adult health examination 427583715 Z00.00 pt to set up mammogram, increase exercise as tolerated by her back, has appt with cd technician in summer Moderate p ersistent asthma 856369521 J45.40 asthma is stable continue med Screening for malignant neoplasm of breast 078259677 Z12.39 pt to arrange Gastroesop hageal reflux disease 627287846 K21.9 on meds that help Major depr ession single episode, in partial remission 03952004 F32.4 sees psychiatry for meds depression and sleep, depression flared from topamax, she feels flat at times. will discuss with psychiatry Polyp of colon 56388226 K63.5 utd on colonoscop y [id number] Sweetie Knott MD Main Office [address] [facility] [address] [facility] [place] [address] 06/10/2020 08:57:59 06/10/2020 09:25:37 Pre-surgery evaluation [id number] Z01.818 1.Pre-Surg ical Evaluation /Surgical Clearance for [...] proceed for procedure if labs WNL. Per Askew, patient is at low risk for cardiopulm onary complicati ons with planned procedure based on comorbidit ies, exertional tolerance and overall procedure risk. Advised to avoid NSAIDS/ASA . Ptosis of eyelid 5195734 0 H02.409 patient following opthamolog y is scheduled to have Blepharopl asty 06/23/2020 [id number] Eri rios MD Main Office [address] [facility] [address] [place] [address] 12/04/2020 10:27:47 12/04/2020 11:16:46 Adult health examination 726020690 Z00.00 breast exam done today, shots and colonoscop y are utd, stressful year, will start counseling Gastroesop hageal reflux disease 291281050 K21.9 on meds that help flare yesterday with poorly tolerated foods Major depr ession single episode, in partial remission 96656512 F32.4 sees psychiatry for meds depression and sleep, depression flared with Covid, she has sadness with her daughter who is 12 gaining a lot of weight pt is setting up family counseling . Epigastric discomfort 11 0332502 R10.13 from eating poor choices yesterday, no acute abdomen On examina tion - herpes labialis-cold sore 098534799 B00.1 [id number] Eri rios MD Main Office [address] [facility] [address] [place] [address] 01/26/2022 14:21:51 01/26/2022 15:47:05 Adult health examination 628991586 Z00.00 Pt is in good general health. Social and family history reviewed. Immunizati ons reviewed, advised annual flu shot, due for Td, will check with work. . She is upt to date on dental and eye providers, mammogram up to date, colon up to date, Reviewed diet and exercise. Gastroesop hageal reflux disease 634682858 K21.9 ongoing sx, will see GI Major depr ession single episode, in partial remission 82062664 F32.4 sees psychiatry for meds depression and sleep, depression flared with Covid, stable at this time. Epigastric discomfort 11 7182110 R10.13 diet revision suggested, continue PPI for now Polyp of colon 88662121 K63.5 Fatigue 77104779 R53.83 Screening for malignant neoplasm of breast 760546437 Z12.39 Degenerati on of lumbar intervertebral disc 56210292 M51.36 followed at pain management [id number] Pepe [facility] [address] [facility] [address] [place] [address] 03/03/2022 10:08:43 03/03/2022 15:21:36 COVID-19 739287807 U07.1 We reviewed the SE's and the isolation recommenda tions. [id number] Radha langley, TODD Main Office [address] [facility] [address] [place] [address] 11/02/2022 14:57:34 11/02/2022 15:57:14 Contact dermatitis caused by plants L25.5 Likely allergic dermatitis , otc products not working will try oral steroid as around eyes. She can also use thin layer of otc hydrocorti sone on the neck and fingers bid for no more than 7-10 days, avoid face. Call if not improving or has secondary infection. Prevention reviewed, side effects reviewed Major depr ession single episode, in partial remission 82837253 F32.4 sees psychiatry for meds depression and sleep, depression stable at this time, steroid can sometimes cause agitation, pt aware [id number] Sweetie Knott MD Main Office [address] [address] [place] [address] 11/08/2022 09:45:29 11/08/2022 10:16:36 Contact dermatitis caused by plants L25.5 1. Remove the oil: If you [...] allergic reaction then pls go to ED. [id number] Torsten Lambert MD [facility] [address] [place] [address] 11/15/2022 12:48:34 11/15/2022 14:07:01 Contact dermatitis caused by urushiol from [place] poison len 094611235 L25.5 will re-treat c slower pred taper [id number] Torsten Lambert MD Main Office [address] [place] [address] 12/31/2022 11:07:49 12/31/2022 12:13:21 Swelling of ankle joint 429846356 M25.471 Likely arthritic but with her HRT and lack of specifical ly identifiab le trauma/inj ury other etiologies should be considered . If d-dimer elevated will need u/s, if negative will refer to ortho or as guided by other test results. Use NSAID PRN in meantime. Advised to take with food and stay well hydrated. [id number] RAVEN COLORADO MD Main Office [address] [place] [address] 03/24/2023 12:53:59 03/24/2023 13:27:19 Adult health examination 266649274 Z00.00 Health Maintenanc e FemaleA) Patient was [...] TdAP: 06/12/2011 Zoster: refusedPCV 13: due at 62LRIY40: due at 04CZF55:PC V15:COVID: 09/30/2020 , 10/27/2020 , 05/13/2021 D) Routine blood work orderedE) Updated patient's history RTC in one year for annual exam or sooner if any acute complaints Major depr ession single episode, in partial remission 30998291 F32.4 - in good control- PHQ-9 score 9- sees psychiatry for meds depression and sleep, Dr Vargas> c/w bupropion XL 300mg> c/w escitalopr am 10mg QD> c/w lorazepam 1mg QD as needed Gastroesop hageal reflux disease 649077736 K21.9 - following with GI- c/w lansoprazo le 60mg QD- had an EGD in 01/2019 Degenerati on of lumbar intervertebral disc 70484248 M51.36 - followed at pain management , given oxycodone 5mg BID as needed- pt is also on Soma 350mg PRN- will use ibuprofen intermitte ntly Fatigue 85075982 R53.83 Requires a tetanus booster 064904870 Z28.39 Hepatitis C screening 41 2392945 Z11.59 Screening for malignant neoplasm of cervix 091362967 Z12.4 Persistent insomnia 1919 84008 G47.09 - pt is on both trazadone 200mg and zolpidem 5mg given by her psychiatri st- c/w clonidine 0.1mg as needed Needs infl uenza immunization 702957558 Z23 Body mass index 30+ - obesity 764531024 Z68.30 E66.9 - bmi of 31.6- Cut [...] or 150 minutes cumulative of moderate exercise carlos a Yee de clined by patient 1759790516 02 Z28.21 [id number] Torsten Lambert MD Main Office [address] [facility] [address] [place] [address] 04/22/2023 09:57:45 04/22/2023 10:59:55 Hypertriglyceridemia 419072293 E78.1 Based on level <500 and low current CVD risk score TLC recommende d. Will recheck along with FBG in 6 months. Pt has started fish oil supplement . Impaired f asting glycemia 816686992 R73.01 Palpitations 82315527 R0 0.2 Symptoms not concerning , may be anxiety related. Will monitor for now and if persistent or associated with exertion pt advised to notify office hector. Se will investigat e [employer] mobile ashvin and utilize if recurrent. If more symptomati c would refer to cardiology . [id number] RAVEN COLORADO MD Main Office [address] [facility] [address] [place] [address] 10/04/2024 08:15:08 10/04/2024 08:47:30 General examination of patient 058938656 Z00.00 Health Maintenanc e FemaleA) Patient was counseled on healthy diet, exercise and nutrition due to BMI of 30.2 B) ScreeningL ast Mammogram: start at age 50 stop at 76Date: 02/04/2022 Result: BIRADS-1Ne xt: 01/2023, DUE (wants to do every 2nd year) Last Pap smear: start at age 21 to age 65Date: 01/13/2020Re sults: HPV negative, no atypical cellsNext: DUE (ordered) Last Colonoscop y: start at age 45-75Date: 07/04/2022R esult: tubular adenoma, hemorrhoid s, diverticul osisNext: 5 years Last DEXA scan:Date: due at 67Result: ??? C) Vaccines:I nfluenza: refusedTdA P: 06/12/2011 -> ordered, not performed, remindedZo ster: refusedPCV 20: orderedCOV ID: 09/30/2020 , 10/27/2020 , 05/13/2021 D) Routine blood work orderedE) Updated patient's history RTC in one year for annual exam or sooner if any acute complaints Gastroesop hageal reflux disease 923227870 K21.9 - c/w lansaprozo le 30mg QD The following lifestyle changes are recommende d and counseled :-Losing weight: Losing weight helps people who are overweight to reduce acid reflux.-Ra ising the head of your bed six to eight inches-Mehul iding foods that trigger symptoms ? Avoid excessive caffeine, chocolate, alcohol, peppermint , and fatty foods. Major depr ession single episode, in partial remission 98079546 F32.4 - in good control- PHQ-9 score 2- sees psychiatry for meds depression and sleep, Dr Vargas (every 3-6 months)> c/w bupropion XL 300mg> c/w escitalopr am 10mg QD -> only during menstrual cycle> c/w lorazepam 1mg QD as needed Persistent insomnia 1919 93476 G47.09 - pt is on both trazadone 200mg and zolpidem 5mg given by her psychiatri st- c/w clonidine 0.1mg as needed Body mass index 30+ - obesity 110377785 Z68.30 E66.9 - bmi of 30.2- Cut down on (limit) fast foods, sweets, [...] minutes cumulative of moderate exercise recommende d. Fatigue 91281812 R53.83 Hepatitis C screening 41 7016483 Z11.59 Screening for malignant neoplasm of cervix 214455131 Z12.4 Vaccine de clined by patient 4320117278 02 Z28.21 Impaired f asting glycemia 247617451 R73.01 Mixed hyperlipidemia 267 983658 E78.2 Screening for malignant neoplasm of breast 150076881 Z12.39 Degenerati on of lumbar intervertebral disc 00578664 M51.369 - causing radiculopa thy on the left lower leg- uses pregabalin -> not prescribed by PCP- pt was previously taking soma as needed however as she is on pregabilin will not refill Nasal congestion 9712651 0 R09.81 - not currently under good control- pt uses zyrtec and flonase- will use asterpro for when really bad- pt requesting to be seen by ENT, ordered Eruption 682704851 R21 Mild inter mittent asthma 884358858 J45.20 - uses when having URI Health Concerns Section Related Observation LastModified by Organization Detai ls LastModified Time None Recorded Concern Status LastModified by Organization Details LastModified Time None Recorded Advance Directives Directive None Recorded Payers Encounter Date Sequence Insurance Name Policy Number Policy Zaidi Covered Member ID Zaidi Member ID Guarantor Name 11/15/2022 1 [facility] (POS) [id number] [facility] [id number] 01 [id number] Karrie Olgaammer 12/31/2022 1 [employer] ([employer]) Karrie Nicholas Aurnhammer [id number] Karrie Myrtlenhammer 03/24/2023 1 [employer] (POS) Karrie Nicholas Aurnhammer [id number] Karrie Aurnhammer 04/22/2023 1 [employer] (POS) Karrie Peterson Aurnhammer [id number] Karrie Aurnhammer 10/04/2024 1 [employer] (POS) Karrie Peterson Aurnhammer [id number] [facility] Notes Date Note Type Note Provider Name and Address Organization Details Recorded Time 3 text/html Patient has had a third flare up of poison len. Rash in on inner thigh, upper thigh and hands -- initially better but now worse reviewed last ov note c CK on 5.30 - gave quick pred taper hydroxyzine helps a little Dany Mcwilliams PA-C [address] [address], [place], [address], [facility] 11/15/2022 14:04:45 3 text/html Musculoskeletal PainReported bypatient.Location:right [...] Is on HRT. Torsten Lambert MD [address], [address], [facility] 12/31/2022 12:17:36 3 text/html Karrie Hardin is [...] what she eatsActivity: does nothing right now RAVEN COLORADO MD [address], [address], [facility] 03/24/2023 13:42:13 3 text/html HyperlipidemiaReported bypatient.Type of [...] and electrolytes were normal. Torsten Lambert MD [address] [address], [place], [address], [facility] 04/22/2023 12:16:59 5 text/html Karrie Hardin is a 58 year old F who presented to the clinic for her annual exam. Pt denies any emergency room visits or hospitalizations. Is not using ASA.OTC/Herbal supplements use: probiotic, vitamin C and probiotic Gynecologic HistoryPatient's last menstrual period continues- cannot remmeber specific dateMenstrual cycle varies in days, without spotting/clothsMenstrual cycle: becoming irregularSexually active: yesContraception: none+ abnormal paps pt cannot rememberDenies cysts, stds, fibroids Obstetric HistoryGravida: 1Para: 1AB: 0Livin (vaginal)Complications: none Drug use: marijuana, chewablesEtoh use: sociallytobacco use: neverspf/derm: Dental: every 6 monthsEye: once every 2 years (wears glasses)Diet: hx of GERD, pay attention to what she eats -> would like to get hernia removedActivity: does nothing right now RAVEN COLORADO MD [address] [address], [place], [address], [facility] 10/04/2024 08:49:21 OBGyn Episode No OBEpisode recorded.
== END 2024-10-10 11:40 | disposition home or self-care (01) ==
LOC: HO.HOP 10:31
PROVIDERS: PCP Student in an Organized Health Care Education/Training Program; Visit Provider Psychiatry & Neurology Psychiatry
DX: F41.1 Generalized anxiety disorder (principal); F32.4 Major depressive disorder, single episode, in partial remission
CPT/HCPCS: 99214

== ENCOUNTER 2025-01-16 10:30 | Outpatient (AMB) | payer OTHER, SELFPAY ==
--- OUTSIDE RECORDS SUMMARY | 2025-01-16 11:05 | XMS_ITS | Patient Health Record ---
Author Organization [facility] Address [address] [place] [address] Care Team Providers Care Submarine Cable Equipment Technician Name Role Phone Pepe Tadeo MD, Kathy Collier Primary Care Prov ider Unavailable Robin Song Unavailable [phone] Allergies Allergen (clinical drug ingredient) Drug/Non Drug Allergy documented on EMR Reaction Allergy Type Onset Date Status oxycodone OxyContin itchy Drug Allergy Active Reason For Referral No Information Medications Medication SIG (Take, Route, Frequency, Duration) Notes Start Date End Date Status Lansoprazole Unknown Gabapentin 300 MG 1 capsule Orally Thr ee times a day 01/21/2015 Unknown Soma 350 MG 1 tablet as needed O rally Once a day 01/21/2015 Unknown Wellbutrin XL 300 MG 1 tablet in the mor alda Orally Once a day 01/21/2015 Unknown traZODone HCl 100 MG Orally Unknown oxyCODONE HCl 100 MG/5ML Orally twice a day Unknown ZyrTEC Unknown Ambien 5 MG 1 tablet at bedtime Orally Once a day Unknown Social History Tobacco use other than smoking: Question Answer Notes Are you an other tobacco user? No Problems Problem Type SNOMED Code ICD Code Onset Dates Problem Status W/U Status Risk Notes Problem Bursitis (98919300) Bursitis (727.3) Active confirmed Problem Calcaneal spur (47260491) Calcaneal spur (726.73) Active confirmed Problem Myositis (45770778) Myositis (729.1) Active confirmed Problem Plantar fasciitis (204141890) Plantar Fasciitis (728.71) Active confirmed Plan Of Treatment No Information Insurance Providers Payer Name Payer Address Payer Phone Subscriber Number Group Number Insured Name Patient Relationship to Insured Coverage Start Date Coverage End Date [employer] [address] [place] [phone] [id number] Karrie Louie Self - patient is the insured Medical (General) History Medical History History ICD Code Depression Chicken pox Back problems Surgical History Surgery Date(Month/Year) shoulder surgery 2002 back surgery 2005 elbow sx 2007 cholecystectomy 2012
--- OUTSIDE RECORDS SUMMARY | 2025-01-16 11:05 | XMS_ITS | Clinical Summary ---
Author Organization [facility] Address [address] [place] [address] Care Team Providers Care Apparel Fashion Designer Name Role Phone Raven Colorado MD Primary Care Provider Allergies Active Allergy Reactions Criticality Noted Date Comments Oxycodone Unknown 11/14/2024 Topiramate Other High 11/14/2024 topiramate Medications albuterol HFA (PROAIR HFA ; PROVENTIL HFA ; VENTOLIN HFA) 90 mcg/actuation inhaler Inhale 2 puffs every 4-6 hours by inhalation route as needed. Active estradioL (VIVELLE-DOT) 0.05 mg/24 hr APPLY 1 PATCH TOPICALLY EVERY MONDAY AND MONDAY,X90 DAYS Active traZODone (DESYREL) 100 mg tablet TAKE 2 TABLETS BY MOUTH AT BEDTIME FOR 3 MONTHS Active valACYclovir (VALTREX) 1 gram tablet TAKE 2 TABLETS BY MOUTH EVERY 12 HOURS NEEDED FOR 1 DAY Active progesterone (PROMETRIUM) 100 mg capsule Take 1 capsule (100 mg total) by mouth 1 (one) time each day. Active pregabalin (LYRICA) 75 mg capsule Take 1 capsule (75 mg total) by mouth 2 (two) times a day. Active zolpidem (AMBIEN) 5 mg tablet Take 1 tablet (5 mg total) by mouth at bedtime as needed. Active buPROPion XL (WELLBUTRIN XL) 300 mg 24 hr tablet Take 1 tablet (300 mg total) by mouth 1 (one) time each day in the morning. Active cloNIDine (CATAPRES) 0.1 mg tablet Take 1 tablet (0.1 mg total) by mouth at bedtime as needed. Active escitalopram (LEXAPRO) 10 mg tablet Take 1 tablet (10 mg total) by mouth 1 (one) time each day. Active fluticasone propionate (FLONASE) 50 mcg/actuation nasal spray [place] 2 sprays every day by intranasal route. 7 Active mometasone (ELOCON) 0.1 % ointment Apply 1 Application topically 1 (one) time each day. 5 Active LORazepam (ATIVAN) 1 mg tablet Take 1 tablet every day by oral route as needed for 30 days. Active ascorbic acid (Vitamin C) 1,000 mg tablet 1 tablet daily Active omega 2-yij-bry-fish oil (Fish OiL) 1,000 (120-180) mg capsule 1 tablet daily Acti ve lactobacillus combination no.4 (Probiotic) 3 billion cell capsule 1 (one) time each day. Active lansoprazole (PREVACID) [address] capsuleIndicatio ns:Gastroesophag eal reflux disease, unspecified whether esophagitis present Take 1 capsule (30 mg total) by mouth 2 (two) times a day. 180 each 3 5 11/15/19 26 Active Active Problems Problem Noted Date Diagnosed Date Rectal pain 11/06/2024 Anemia 11/06/2024 Cervical radiculopathy 11/06/2024 Dysuria 11/06/2024 Hand pain 11/06/2024 Vaginitis 11/06/2024 Persistent insomnia 10/04/2024 Herpes simplex type 1 infection 02/05/2024 Impaired fasting glucose 04/22/2023 Hypertriglyceridemia 04/01/2023 Ankle swelling 12/31/2022 Dysplasia of colon 01/31/2019 Overview (11/06/2024): precancerous colon polyps, colonoscopy every 3 years Major depressive disorder wi th single episode, in partial remission ([facility] V24) 10/23/2018 Acute upper respiratory infection 04/25/2013 Overview (11/06/2024): IMPRESSION: VIRAL; RECORDED 04/25/2013 3:04PM BY YESENIA ELKINS, OFFICE VISIT Degeneration of lumbar intervertebral disc 04/25 Overview (11/06/2024): RECORDED 04/25/2013 3:04PM BY YESENIA ELKINS, OFFICE VISIT Cough 04/25/2013 Overview (11/06/2024): IMPRESSION: HAS REACTIVE AIRWAYS THAT HAVE RESPONDED IN PAST TO ADVAIR. WILL UP TO 500. SHE THINKS POSTNASAL DRIP PLAYS A BIG PART TOO. ADD SUDAFED. CONTINUE FLONASE AND NETI-POT; RECORDED 04/25/2013 3:05PM BY YESENIA ELKINS, OFFICE VISIT Gastroesophageal reflux disease 04/25/2013 Overview (11/06/2024): IMPRESSION: STABLE ON MEDS, KEEP MEALS LIGHT; RECORDED 04/25/2013 3:04PM BY YESENIA ELKINS, OFFICE VISIT Assessment & Plan (11/14/2024 5:47 PM EDT): Refill lansoprazole 30 mg p.o. twice daily. Continue as directed. Orders: lansoprazole (PREVACID) [address] capsule; Take 1 capsule (30 mg total) by mouth 2 (two) times a day. Depressive disorder 04/25/2013 Overview (11/06/2024): RECORDED 04/25/2013 3:05PM BY YESENIA ELKINS, OFFICE VISIT Low back pain 04/25/2013 Overview (11/06/2024): IMPRESSION: TREATED BY PAIN MANAGEMENT, ON PRN PAIN MEDS, ENCOURAGED CORE AND EXERCISE WORK; RECORDED 04/25/2013 3:37PM BY ERI JAMES MD, OFFICE VISIT Leukopenia 04/25/2013 Overview (11/06/2024): RECORDED 04/25/2013 3:05PM BY YESENIA ELKINS, OFFICE VISIT Internal hemorrhoids 04/25/2013 Overview (11/06/2024): RECORDED 04/25/2013 3:05PM BY YESENIA ELKINS, OFFICE VISIT Pure hypercholesterolemia 04/25/2013 Overview (11/06/2024): IMPRESSION: CEHCK NONFASTING TO GET BASELINE; RECORDED 04/25/2013 3:05PM BY YESENIA ELKINS, OFFICE VISIT Candidal vulvovaginitis 08/22/2012 Overview (11/06/2024): RECORDED 05/29/2013 4:14PM BY YESENIA ELKINS, NURSE TRIAGE Generalized abdominal pain 01/23/2012 Overview (11/06/2024): RECORDED 01/23/2012 11:01AM BY SARA ROWLAND MA, ANNOTATION/ADDENDUM Disorder of skin or subcutaneous tissue 01/23/20 12 Overview (11/06/2024): IMPRESSION: 2 SMALL SKIN TAGS OVER EYES, SKIN GETS DRY AND THEY CAN GET IRRITATED.REFER TO PLASTIC SURGERY FOR EVAL ABOUT REMOVAL; RECORDED 01/23/2012 11:01AM BY SARA ROWLAND MA, ANNOTATION/ADDENDUM Disorder involving thrombocytopenia ([facility] V24 ) 01/23/2012 Overview (11/06/2024): RECORDED 01/23/2012 11:01AM BY SARA ROWLAND MA, ANNOTATION/ADDENDUM Malaise and fatigue 01/23/2012 Overview (11/06/2024): IMPRESSION: CHECK LABS HX OF GESTATIONAL DM; RECORDED 04/25/2013 3:37PM BY ERI JAMES MD, OFFICE VISIT Abdominal pain 01/18/2012 Overview (11/06/2024): IMPRESSION: PAIN, BLOATING AND GAS X PASTA 1.5 WEEKS. LOCALIZED LUQ BUT ALSO EPIGASTRIC D/C AND RLQ D/C ON EXAM. HX OF HIATAL HERNIA, GERD BUT NO OTHER CHRONIC GI SXS. NEEDS LAB, US. WILL CONTACT WITH RESULTS WHEN AVAIL, MAY ULTIMATELY NEED GI REFERRAL FOR POSSIBLE SCOPE. IN MEANTIME FLUIDS, BLAND FOODS, CONTINUE WITH PREVACID.; RECORDED 01/18/2012 10:54AM BY YESENIA ELKINS, ANNOTATION/ADDENDUM Acute sinusitis 01/18/2012 Overview (11/06/2024): RECORDED 01/18/2012 10:53AM BY YESENIA ELKINS, RADHA/ADDENDUM Allergic rhinitis 01/18/2012 Overview (11/06/2024): IMPRESSION: WILL ADD DUE TO POORLY CONTROLLED ALLERGIES; RECORDED 01/18/2012 10:54AM BY YESENIA ELKINS, RADHA/ADDENDUM Conjunctivitis 01/18/2012 Overview (11/06/2024): RECORDED 01/18/2012 10:53AM BY YESENIA ELKINS, RADHA/ADDENDUM Female infertility 01/18/2012 Overview (11/06/2024): RECORDED 01/18/2012 10:53AM BY YESENIA ELKINS, RADHA/ADDENDUM Lumbar sprain 01/18/2012 Overview (11/06/2024): RECORDED 01/18/2012 10:53AM BY RADHA GOSS/ADDENDUM Rash 11/13/2008 Overview (11/06/2024): IMPRESSION: PERIANAL, TRUIAL OF STEROID, THEN ANTIFUNGAL AND THEN TREAT HEMORRHOIDS,; RECORDED 11/13/2008 1:44PM BY TITO CABRERA MA, ANNOTATION/ADDENDUM Acute pharyngitis 08/18/2008 Overview (11/06/2024): IMPRESSION: ULCERATIONS ON OROPHARYNX, LOOK VIRAL RELATED, SALT WATER GARGLES; RECORDED 08/18/2008 2:22PM BY YOLETTE LORD, RADHA/ADDENDUM Blood in urine 08/18/2008 Overview (11/06/2024): RECORDED 08/18/2008 2:22PM BY YOLETTE LORD, RADHA/ADDENDUM Infective otitis externa 08/18/2008 Overview (11/06/2024): RECORDED 08/18/2008 2:24PM BY TITO CABRERA MA, ANNOTATION/ADDENDUM Acute maxillary sinusitis 01/13/2007 Overview (11/06/2024): RESOLVED DATE: 01/13/2007; RECORDED 01/13/2007 10:19AM BY PEPE MARQUIS MD, ANNOTATION/ADDENDUM Encounters Date Type Department Care Team Description 11/20/2024 Telephone Gastroenterology - [address] [place] [id number] Laura Cool MA Results 11/14/2024 3:10 PM EDT Office Visit Gastroenterology - [address] [place] [phone] Cyndee Pedraza PA Gastroesophageal reflux disease, unspecified whether esophagitis present (Primary Dx); Bloating 10/21/2024 Telephone Gastroenterology - [address] [place] [phone] Tierra Llamas MD Consult Appointment from Last 3 Months Surgical History Surgery Date Site/Laterality Comments COLONOSCOPY 07/04/2022 TA x 1, recall 5 years CHOLECYSTECTOMY ELBOW SURGERY BACK SURGERY SHOULDER SURGERY ESOPHAGOGASTRODUODENOSCOPY 01/22/2019 COLONOSCOPY 01/22/2019 TA x 3 Family History * Patient is adopted Medical History Relation Name Comments diabetes mellitus Maternal Grandmother Relation Name Status Comments Maternal Grandmother Social History Tobacco Use Types Packs/Day Years Used Date Smoking Tobacco: Never Smokeless Tobacco: Never Tobacco Cessation:Counseling Given: Not Answered Alcohol Use Standard Drinks/Week Comments Yes 0 (1 standard drink = 0.6 oz pur e alcohol) occasional Comments Unknown Sex and Gender Information Value Date Recorded Sex Assigned at Not on file Legal Sex Female 10:29 AM EDT Gender Identity Not on file Sexual Orientation Not on file Obstetrics History Last Filed Vital Signs Vital Sign Reading Time Taken Comments Blood Pressure - - Pulse - - Temperature - - Respiratory Rate - - Oxygen Saturation - - Inhaled Oxygen Concentration - - Weight 86.6 kg (191 lb) 11/14/2024 2:46 PM EDT Height 167.6 cm (5' 6 ) 11/14/2024 2:46 PM EDT Body Mass Index 30.83 11/14/2024 2:46 PM EDT Plan of Treatment Health Maintenance Due Date Last Done Comments Hepatitis B Vaccines (1 of 3 - 19+ 3-dose series) 10/14/1986 Pneumococcal Vaccine: 50+ Years (1 of 2 - PCV) 10/14/1986 Cervical Cancer Screening: Pap Smear 10/14/1988 Zoster Vaccines (1 of 2) 10/14/2017 DTaP,Tdap,and Td Vaccines (4 - Td or Tdap) 01/18/2022 01/19/2012, 06/12/2011, 06/12/2002 COVID-19 Vaccine (4 - season) 2024 05/13/2021, 10/27/2020, 09/30/2020 Depression Screening 06/12/2024 Cholesterol Screening (Lipid Panel) 10/05/2024 HIV Screening 10/05/2024 Hepatitis C Screening 10/05/2024 Social Influencers of Health Screening 10/05/2024 Influenza Vaccine (#1) 2025 , 03/13/2014, 04/25/2013, Additional history exists Breast Cancer Screening 11/07/2026 11/07/2024, 02/04 Colorectal Cancer Screening: Colonoscopy 01/07/2035 01/07/2025 HIB Vaccines Aged Out No longer eligi [...] on patient's age to complete this topic Procedures Procedure Name Priority Date/Time Associated Diagnosis Comments COLONOSCOPY Routine 01/07/2025 1:17 PM EDT ENDOMYSIAL ANTIBODY, IGA Routine 11/14/2024 3:37 PM EDT Bloating TISSUE TRANSGLUTAMINASE, IGA Routine 11/14/2024 3:37 PM EDT Bloating from Last 3 Months Results * COLONOSCOPY (01/07/2025 1:17 PM EDT) Anatomical Region Laterality Modality Endoscopy Historical Provider GI~PROCEDURE ORDERABLES F inal Result * Endomysial antibody, IgA (11/14/2024 3:37 PM EDT) Endomysial IgA Negative Negative 11/15/2024 10:59 AM EDT [facility] Blood Venous blood specimen / Unknown Venipuncture / Unknown 11/14/2024 3:37 PM EDT 11/14/2024 4:01 PM EDT Cyndee [place] LAB BLOOD ORDERABLES Final Resu lt Performing Organization Address [facility]/ZIP Co de Phone Number [facility] [address] [place] [address], [place] [phone] * Tissue transglutaminase, IgA (11/14/2024 3:37 PM EDT) Tissue Transglutaminase Ab, IgA Quant 1 <4 unit/mL LAB CHEMISTRY METHOD 11/20/2024 12:04 PM EDT [facility] Tissue Transglutaminase Ab, IgA Negative Negative LAB CHEMISTRY METHOD 11/20/2024 12:04 PM EDT [facility] Blood Venous blood specimen / Unknown Venipuncture / Unknown 11/14/2024 3:37 PM EDT 11/14/2024 4:01 PM EDT Cyndee Pedraza DC LAB BLOOD ORDERABLES Final Resu lt Performing Organization Address City/[facility]/ZIP Co de Phone Number [facility] [address] [place] [address], [place] [phone] from Last 3 Months Insurance [facility] Care Teams Apparel Fashion Designer Relationship Specialty Start Date End Date Raven Colorado MD [address] [phone] PCP - General Internal Medicine 10/09/24
--- NOTE | 2025-01-16 11:18 | A.OFFPSYCH_ITS ---
Intake Intake Visit Reasons: depression Allergies oxycodone (OxyContin) Allergy (Unknown, Verified 05/22/14 00:00) itchiness From OXYCONTIN Allergy (Unknown, Uncoded 02/27/20 16:32) ITCHING Medication List - Last Reconciled 02/23/25 by Lebron Vargas MD bupropion HCl XL (Wellbutrin XL) 300 mg PO QAM clonidine HCl 0.1 mg PO BEDTIME PRN escitalopram oxalate 10 mg PO DAILY estradiol 1 patch topical 2XW lansoprazole 30 mg PO BID lorazepam 0.5 - 1 mg (0.5 - 1 x 1 mg) PO DAILY PRN 30 days progesterone micronized 100 mg PO DAILY trazodone 200 mg (2 x 100 mg) PO BEDTIME 3 months zolpidem 5 mg PO BEDTIME PRN HPI- Psychiatric Chief Complaint: depression HPI Narrative: Patient seen psychiatric follow-up. GED and PHQ-9 not elevated but patient is under significant chronic stress dealing with her daughter who has multiple medical problems chronic pain morbid obesity and has not been functioning difficulty leaving the house has significant agoraphobia also difficulty with ambulation. Patient's daughters also highly dependent on her often does not want her leaving the house patient feels somewhat trapped at times did recently go away overnight and this she felt was quite needed. She is not sure her current therapist is working on boundary issues that she needs to be working on but she is in a difficult situation with her daughter chronically depressed anxious and intermittently suicidal. Appears to have trauma issues related PTSD question of borderline personality disorder question of by polar disorder type 2 according to the patient these have been items that the patient has been discussing with her provider. Patient continues to function she works mostly from home no new medical concerns does intermittently use SSRI Past Psychiatric History: The patient has a history of recurrent low level depression premenstrual mood dysphoria and anxiety has been seeing this proposal lead writer for a number of years Mental Status Exam Mental Status Exam Narrative: Mental Status Exam Narrative: Appearance: Casually dressed Behavior: Cooperative appropriate psychomotor: Within normal limits Speech: Normal volume and prosody Thought proccess logical and goal-directed Thought content: Future oriented focused on relations with her daughter and medical and psychiatric issues with her daughter and need for clear boundaries Mood: stressed anxiety Affect: Appropriate to mood constricted SI:denies HI:denies VH/AH:none Delusions: None Insight/judgment: Good insight and judgment Memory/cog: Intact Assessment and Plan Assessment & Plan (1) Dysthymia: Status: Acute Code(s): F34.1 - Dysthymic disorder (2) Post traumatic stress disorder (PTSD): Status: Acute Code(s): F43.10 - Post-traumatic stress disorder, unspecified Plan Patient now on estradiol patch which she is hoping will be helpful for her mood anxiety and sleep. Clonidine has been helpful at bedtime for anxiety and insomnia. Discussed need for boundaries and daughter daughter hopefully running some skills in relationship to managing her mood states anxiety. Continue Wellbutrin clonidine trazodone intermittent escitalopram Medications: Refilled bupropion HCl XL (Wellbutrin XL) 300 mg PO QAM 90 tabs 1RF clonidine HCl 0.1 mg PO BEDTIME PRN 90 tabs 0RF for insomnia Counseling and coordination of Care Details-Self Mgmt counseling: Issues related to self-help relaxation skills would benefit from help regarding boundary issues with her daughter in a quite difficult situation. Meuse headband Medication management counseling: Effectiveness, Side effects and Dosing range Diagnosis and Prognosis Counseling: Impact of diagnosis on life functions and Adequacy of current interventions Details: I spent [40] minutes reviewing the record, seeing the patient and documenting in the medical record. Counseling provided to the patient/caregiver as outlined below. Addressed patient/caregiver concerns regarding current medication regime including effective adherence. Addressed patient/caregiver concerns regarding diagnosis and prognosis including accuracy of diagnosis, prognosis over time, impact of diagnosis. Addressed patient/caregiver concerns regarding impact of recent stressors. [facility] Medical History (Updated 07/10/24 @ 16:51 by Lebron Vargas MD) Post traumatic stress disorder (PTSD) Major depressive disorder in partial remission Asthma Generalized anxiety disorder Social History: The patient works for [employer] she is and has 1 daughter she is the healthcare proxy mother who has dementia and lives nearby in assisted living daughter has trauma hx Substance History: none Coding Level of Care Code Est Pt Level 3 (36787) Therapy 30m w/E&M (57272) Diagnoses Dysthymia F34.1 Post traumatic stress disorder (PTSD) F43.10
== END 2025-01-16 11:24 | disposition home or self-care (01) ==
LOC: HO.HOP 10:30
PROVIDERS: PCP Student in an Organized Health Care Education/Training Program; Visit Provider Psychiatry & Neurology Psychiatry
DX: F34.1 Dysthymic disorder (principal); F43.10 Post-traumatic stress disorder, unspecified
CPT/HCPCS: 90833; 99213